=== PATIENT | female | born 1945 | race Caucasian/White ===

== ENCOUNTER → 2018-01-11 16:07 | Outpatient (CLI) | payer MEDICARE, SELFPAY | PROVIDERS: Family Provider Family Medicine; PCP Family Medicine; Visit Provider Family Medicine | DX: N30.00 Acute cystitis without hematuria (principal) | CPT/HCPCS: 87077; 87086; 87088; 87186 ==

== ENCOUNTER → 2018-11-18 07:57 | Outpatient (CLI) | payer MEDICARE, SELFPAY ==
--- NOTE | 2018-11-18 08:00 | BI_ITS ---
MAMMOGRAPHY - BILATERAL SCREENING REASON FOR EXAM: Female, 73 years old. Routine annual screening examination. PERTINENT HISTORY: Non-contributory. Remote left stereotactic breast biopsy. TECHNIQUE: Digital bilateral breast tyler (3D mammographic acquisition) in the CC and MLO projections. 2-D mediolateral oblique (MLO) and craniocaudad (CC) views of both breasts were obtained. CAD: Full Field Digital Mammography with Computer Added Detection was performed. COMPARISON: Comparison is made with prior study dated March 28, 2017 and January 28, 2016. FINDINGS: Breast Composition: The breasts are heterogeneously dense, which may obscure small masses. There are no dominant masses or suspicious calcifications. A tissue clip marker is once again seen in the axillary region of the left breast. No other significant abnormalities are identified. There has been no significant change since the prior study. BI/SCREENING MAMM (CAD), BILAT IMPRESSION: Stable bilateral screening mammogram. Yearly follow-up mammogram recommended. (A) ASSESSMENT CATEGORY: BIRADS Category 2: Benign. A letter regarding these results will be sent to the patient by the facility within 30 days. Approximately 10% of breast cancers are not detected by mammography. A normal mammogram should not delay biopsy of a clinically suspicious abnormality. [id number] Electronically Signed: Wilton Razo MD at 11:20 EST , Service support ,
== END ==
PROVIDERS: Family Provider Family Medicine; PCP Family Medicine; Referring Provider Family Medicine; Visit Provider Family Medicine
DX: Z12.31 Encounter for screening mammogram for malignant neoplasm of breast (principal)
CPT/HCPCS: 77063; 77067

== ENCOUNTER → 2018-11-22 11:43 | Outpatient (CLI) | payer MEDICARE, SELFPAY ==
[2018-11-22 16:01] LABS: Absolute Lymphocyte Count 1.06 X10^3/ul (0.83-4.51); Absolute Neutrophil Count 3.9 X10^3/uL (2.0-7.7); Basophil# 0.03 X10^3/uL; Basophil% 0.5 % (0-1); Eosinophil# 0.08 X10^3/uL; Eosinophils% 1.4 % (0-5); Hematocrit 35.8 % (37-47); Hemoglobin 11.4 g/dl (12.0-15.0); Lymphocyte # 1.06 X10^3/ul (4.0); Lymphocyte % 19.1 % (19-41); Mean Corp Hgb Conc 31.8 g/gl (32-36); Mean Corpuscular Hgb 28.2 pg (27.0-32.0); Mean Corpuscular Volume 88.6 fL (81-99); Mean Platelet Vol. 10.9 fl (6.2-12.0); Monocyte# 0.47 X10^3/uL; Monocyte% 8.5 % (0-10); Neutrophil # 3.89 X10^3/uL (2.7-7.7); Neutrophil % 70.1 % (47-70); Platelet Count 243 K/mm3 (150-450); RBC Distribution Width CV 13.7 % (11.6-14.6); RBC Distribution Width SD 44.6 fl (35.1-43.9); Red Blood Count 4.04 M/mm3 (4.2-5.4); White Blood Count 5.6 K/mm3 (4.4-11.0)
[2018-11-22 16:03] LABS: POSITIVE COUNT NO; POSITIVE DIFFERENTIAL NO; POSITIVE MORPHOLOGY NO
[2018-11-22 16:08] LABS: Anion Gap 7 (5-15); BUN 15 mg/dL (7-18); BUN/Creat Ratio 17.4 RATIO (10-20); Calcium,Total 8.9 mg/dL (8.5-10.1); Chloride 99 mmol/L (98-107); Creatinine, Serum 0.86 mg/dL (0.55-1.02); EST Glomerular Filtration Rate 68 mL/min (>60); Est Glom Filt Rate - Afr Amer 83 mL/min (>60); Glucose 98 mg/dL (74-106); Potassium 4.2 mmol/L (3.5-5.1); Sodium Level 135 mmol/L (136-145); T4 Free Direct 0.99 ng/dL (0.76-1.46); Thyroid Stim Hormone (TSH) 1.09 uIU/mL (0.358-3.74); Vitamin D,25 Hydroxy 22.9 ng/mL (29.95-100.01)
== END ==
PROVIDERS: Family Provider Family Medicine; PCP Family Medicine; Visit Provider Family Medicine
DX: E55.9 Vitamin D deficiency, unspecified (principal); I10 Essential (primary) hypertension; E78.5 Hyperlipidemia, unspecified
CPT/HCPCS: 36415; 80048; 82306; 84439; 84443; 85025

== ENCOUNTER → 2018-12-12 12:34 | Outpatient (CLI) | payer MEDICARE, SELFPAY ==
[2018-12-17 11:25] LABS: HPV Reflexed? NOT INDICATED
== END ==
PROVIDERS: Family Medicine; Family Provider Family Medicine; PCP Family Medicine; Visit Provider Family Medicine
DX: Z12.4 Encounter for screening for malignant neoplasm of cervix (principal)
CPT/HCPCS: 88175; G0145

== ENCOUNTER 2019-10-08 14:07 | Emergency (ER) | payer MEDICARE, SELFPAY ==
[2019-10-08 14:09] VITALS: BP 166/82; PULSE 82; RESP 16; TEMP 36.2; O2SAT 99; BMI 28.8
--- NOTE | 2019-10-08 14:16 | ED.DCSUM_ITS ---
History of Present Illness Chief Complaint: Lower Extremity Injury Informant: Patient Onset: Today Context: Sudden Onset Timing: Continuous Quality: Pain Location: Left ankle Current Severity: Mild Maximum Severity: Moderate Worsened by: Palpation and weightbearing Relieved by: Rest Associated Symptoms: Difficulty ambulating Narrative: Patient is a 74-year-old woman who was walking to the garden. She lost her balance. She rolled her left ankle. She presents because of pain and swelling her left ankle. She was concerned she may have injured her knee as well. She denies hitting her head. She has no other complaints. Prior similar symptoms: No Recent Illness/Hospitalization: No Past Medical History - Allergies and Home Meds Allergies/Adverse Reactions: Allergies No Known Allergies Allergy (Verified 10/08/19 14:08) Primary Care Physician: Phil Garcia MD [Primary Care Provider] - Prior records reviewed: No - Available Surgical History: noncontributory Lives: Spouse/ Significant Other Smoking Status: Never smoker Drugs: None Review of Systems Musculoskeletal: Reports: Swelling, Extremity Pain. Denies: Myalgias, Arthralgias, Neck pain, Back pain Skin: Denies: Rash, Wounds Neurological: Denies: Weakness, Parasthesia, Numbness Hematologic: Denies: Easy bruising, Easy bleeding Physical Exam Vital Signs/Narrative: Vital Signs Temp Pulse Resp BP Pulse Ox 10/08/19 14:09 97.2 F L 82 16 166/82 H 99 Inital Vital Signs reviewed: Yes General: Well nourished, Well developed, Obese, No Acute Distress Head: Normocephalic, Atraumatic Eyes: Perrl, EOMI. Negative for: Pale conjunctiva, Scleral icterus ENT: Moist mucous membranes, No rhinorrhea Cardiovascular: Regular rate, Regular rhythm, No murmurs Respiratory: No distress Extremities: No edema, Tenderness - There is pain to palpation over the distal 3 to 4 cm of the left fibula there is no laxity with drawer testing. There is no pain palpation of the base of the fifth metatarsal. DP pulses palpable.The knee does not appear swollen. The patella is not ballotable. There is no effusion. There is no joint line tenderness. There is no lacks with varus valgus stress testing. Roslyn's test is negative. She has full flexion extension.. Negative for: Nontender Skin: Normal color, No rash Neurological: Alert, Oriented x3, Cranial nerves II-XII grossly intact, Normal Strength, Normal Sensation. Negative for: Normal Gait Diagnostic/Tx/Re-eval Chest X-Ray - ED: Read by ED Physician, - - 3 view x-ray of the left ankle was obtained and interpreted by me as positive for a comminuted distal left fibular fracture at the joint line. There is no widening of the mortise. There is no other abnormality noted. 10/08/19 14:16 Ankle min 3 Views [RAD] Stat - Medical Decision Making Based on history, physical and audible role x-ray of the left ankle was obtained. Differential sprain versus fracture ED Disposition - Plan for ED Patient: Disposition: Home or Assisted Living Diagnosis: Closed traumatic nondisplaced fracture of distal end of left fibula Instructions: ANKLE FRACTURE (Distal Fibula), closed Prescriptions: Hydrocodone Bitart/Apap 5-325 [[place] 5MG-325MG] 1 tab PO Q6H PRN PRN 3 Days #10 tab PRN Reason: Pain Prescription Printed Referrals: Phil Garcia MD [Primary Care Provider] - Vivian Woods DO [STAFF PHYSICIAN] - 5-7 Days
--- NOTE | 2019-10-08 14:25 | RAD_ITS ---
STUDY: X-RAY - LEFT ANKLE REASON FOR EXAM: Female, 74 years old. FALL, PAIN TECHNIQUE: 3 view(s) of the ankle. COMPARISON: None. FINDINGS: Obliquely oriented fracture of the distal fibula with approximately 2 mm of displacement extends to the level of the tibiotalar joint. Normal tibiotalar articulation and ankle mortise. Normal visualized talus and calcaneus. The visualized subtalar, talonavicular, calcaneocuboid and tarsal articulations are normal. Ossific density adjacent to the anterior plantar calcaneus likely represents an accessory ossicle. There is lateral and anterior soft tissue swelling. RAD/Ankle min 3 Views IMPRESSION: Smith B distal fibular fracture. Electronically Signed: Biju Padilla MD ([place]) at 14:44 EST , Service support ,
[2019-10-08 15:15] VITALS: RESP 16
== END 2019-10-08 15:16 | disposition home or self-care (01) ==
LOC: ED 14:49
PROVIDERS: Emergency Provider Emergency Medicine; Family Provider Family Medicine; PCP Family Medicine
DX: S82.832A Other fracture of upper and lower end of left fibula, initial encounter for closed fracture (principal); X50.1XXA Overexertion from prolonged static or awkward postures, initial encounter; Y93.01 Activity, walking, marching and hiking; Y92.096 Garden or yard of other non-institutional residence as the place of occurrence of the external cause; Y99.9 Unspecified external cause status; E66.9 Obesity, unspecified
CPT/HCPCS: 73610; 99282

== ENCOUNTER → 2019-10-14 08:34 | Outpatient (CLI) | payer MEDICARE, SELFPAY ==
[2019-10-14 08:16] VITALS: BMI 29.2
--- NOTE | 2019-10-14 08:34 | RAD_ITS ---
STUDY: X-RAY - LEFT ANKLE REASON FOR EXAM: Fracture follow-up. TECHNIQUE: 3 view(s) of the ankle. COMPARISON: Radiographs 10/08/2019. FINDINGS: There is no interval change of the minimally displaced distal fibular fracture. There is a small anterior osteophyte of the distal tibia without joint space narrowing of the tibiotalar articulation. There are small posterior and plantar calcaneal enthesophytes. The visualized subtalar, talonavicular, calcaneocuboid and tarsal articulations are normal. There is soft tissue swelling overlying the lateral malleolus. RAD/Ankle min 3 Views IMPRESSION: No interval change of distal fibular fracture. Electronically Signed: Guillermo Fraser MD at 10:54 EST Tel , Service support ,
--- NOTE | 2019-10-14 08:34 | RAD_ITS ---
STUDY: X-RAY - LEFT KNEE REASON FOR EXAM: Chronic pain. TECHNIQUE: 4 view(s) of the knee. COMPARISON: None. FINDINGS: Normal visualized distal femur. Normal visualized proximal tibia and fibula. Normal proximal tibiofibular articulation. There are marginal osteophytes and moderately severe joint space narrowing of the medial femorotibial compartment. There are marginal osteophytes without joint space narrowing of the lateral femorotibial compartment. There are marginal osteophytes with moderate joint space narrowing of the patellofemoral articulation. There is a joint effusion. RAD/Knee 4 or More Views IMPRESSION: Arthrosis of the medial femorotibial and patellofemoral compartments. Joint effusion. Electronically Signed: Guillermo Fraser MD at 10:36 EST Tel , Service support ,
== END ==
PROVIDERS: Family Provider Family Medicine; PCP Family Medicine; Referring Provider Orthopaedic Surgery; Visit Provider Orthopaedic Surgery
DX: M25.562 Pain in left knee (principal); M25.572 Pain in left ankle and joints of left foot
CPT/HCPCS: 73564; 73610

== ENCOUNTER 2019-10-17 07:46 | Day surgery (SDC) | payer MEDICARE, SELFPAY ==
[2019-10-14 08:16] VITALS: BMI 29.2
--- NOTE | 2019-10-14 11:59 | HP_ITS ---
I have re-examined the patient. There are no clinical changes since date of exam. Intake Vital Signs 10/14/19 Height 5 ft 3 in 10/14/19 Weight: 165 lb Intake Visit Reasons: LEFT ANKLE Is patient in pain?: Yes Pain scale (1-10): 1 Allergies No Known Allergies Allergy (Verified 10/14/19 08:26) Medications Losartan Potassium [Cozaar] 25 mg PO DAILY 10/08/19 [History Confirmed 10/14/19] aspirin 81 mg tablet,delayed release 81 mg PO DAILY 10/14/19 [History Confirmed 10/14/19] [facility] Medical History (Updated 10/14/19 @ 08:26 by Nita Monae) Hypertension (Chronic) Surgical History (Updated 10/14/19 @ 08:27 by Nita Monae) H/O: (Acute) Social History (Updated 10/14/19 @ 11:59 by Vivian Woods DO) Smoking Status: Never smoker HPI LEFT ANKLE: Surgical H&P: Yes Details: Parts of this documentation were recorded by a scribe, this documentation accurately reflects the service provided and the decisions made by me, Vivian Woods DO 10/14/19 0816. GUILLERMINA HANSEN is a 74 year old F here today for a left fibula fracture. Patient notes that she was taking compost to the garden on 10/08/19 and fell down the slope. Patient notes that she went to the ED due to no strength. She states that she continues to have swelling. Patient has been elevating and icing her ankle. She notes that she ambulates with the boot at all times. She is partial weightbearing with a walker. Patient notes that her pain is decreasing. She takes tylenol or aleve for pain. Patient notes that she has knee pain at times. Denies numbness, tingling or other associated symptoms. ROS Musc Reports joint pain, Reports joint swelling Skin/Breast Reports system reviewed and no additional complaints, except as docu Neuro Yes system reviewed and no additional complaints, except as docu Ortho Exam Left Foot/Ankle Date of injury: 10/08/19 Skin: Yes Ecchymosis and Soft Tissue Swelling Contralateral Normal: Yes Exam: Yes Ecchymosis, Soft tissue swelling, TTP FX site and TTP Lateral Malleolus Dorsiflexion 0-20: 0 degrees Plantar Flexion 0-40: 0 degrees ROM: Yes pain with ROM Sensation: Deep Peroneal Nerve: I, Superficial Peroneal Nerve: I, Tibial Nerve: I, Sural Nerve: I, Saphenous Nerve: I No rales rhonchi wheezing, no abdominal pain, no audible bruits Assessment & Plan Problems 1. Closed displaced fracture of lateral malleolus of left fibula, initial encounter S82.62XA Plan Personally reviewed the patient's medical history, medications, surgeries and recent exams if available. X-rays were reviewed. There is no obvious fracture, dislocation, or lucency noted. 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 Reviewed the joint force and how that can be disrupted with fractures but she has maintained good alignment and spacing in the ankle joint. Her treatment options are do nothing, casting for better support and the changing when the swelling decreases and nwb or surgery for ORIF, reviewed the post op restrictions and the ability to walk on it sooner with ORIF vs cast. Answered patient's questions regarding plate removal if needed. Reviewed the pre-operative plans with the patient. Risks and benefits of the procedure were fully explained, including but not limited to infection, neurovascular injury, continued pain, arthritis, stiffness, need for further surgery, re-injury, DVT, PE, general risks of anesthesia, and loss of limb or life. The patient understands all the risks and does wish to proceed with written consent. Follow up post op or sooner if pain, swelling, numbness or associated symptoms, or concerns develop. All questions answered. Patient in agreement of plan. Orders Orders: Ankle min 3 Views Today M25.572 Knee 4 or More Views Today M25.562 Coding Level of Care Code Off vis,new,level 3 Diagnoses Closed displaced fracture of lateral malleolus of left fibula, initial encounter S82.62XA ??Encounter type: initial encounter ??Fracture alignment: displaced ??Fracture type: closed 10/14/19 1159 <Electronically signed by Vivian clifton DO> Date _ Vivian Woods DO
[2019-10-17] VITALS (8 sets, daily range): BP systolic 120–159; BP diastolic 66–86; PULSE 85–99; RESP 16; TEMP 36.2–36.9; O2SAT 92–98
--- NOTE | 2019-10-17 08:01 | EKG12_ITS ---
Test Reason : PREOP Blood Pressure : / mmHG Vent. Rate : 093 BPM Atrial Rate : 093 BPM P-R Int : 150 ms QRS Dur : 076 ms QT Int : 356 ms P-R-T Axes : 039 047 006 degrees QTc Int : 442 ms Normal sinus rhythm Normal ECG Confirmed by NELSON HANSEN, RADHA ([id number]), telegraph editor ELENA CARRIZALES ([id number]) on 10/21/2019 10:42:50 AM Referred By: Vivian Woods Confirmed By:RADHA DAMON MD
[2019-10-17] MEDS: Lactated Ringers 1,000 ML 100 ML IV (08:42)
[2019-10-17] MEDS: Cefazolin 2 GM in 0.9% Normal Saline 100 ML IV (09:39)
--- NOTE | 2019-10-17 09:45 | RAD_ITS ---
STUDY: X-RAY - LEFT ANKLE REASON FOR EXAM: Left ankle fracture ORIF. TECHNIQUE: 7 intraoperative images of the ankle. COMPARISON: Radiographs 10/14/2019. FINDINGS: There is an orthopedic plate and screws transfixing a distal fibular fracture in anatomic alignment and position. There is a syndesmotic screw. 39.2 seconds of fluoroscopy time was used. Electronically Signed: Guillermo Fraser MD at 13:03 EST Tel , Service support , RAD/Ankle min 3 Views
[2019-10-17] MEDS: Mupirocin Ointment 22gm Tube 1 APPLIC (11:00)
--- NOTE | 2019-10-17 11:18 | DCINST_ITS ---
Discharge Diet: No Restrictions - elevate toes above nose, nwb left leg, wiggle toes, call with increased pain, numbness, or if other issues arise Discharge Activity: May Not Drive May shower in (days): 1 Ice area for (Minutes): 20 - Every hour while awake. Weight Bearing Status: Weight bearing as tolerated Keep extremity elevated above heart level: Operative Extremity Call your doctor if your incision/area has: Continuous Slow Oozing, Sudden Increased Bleeding, Increased Pain/ Swelling, Increased Redness, Foul Smelling Discharge Call your doctor if you observe: Fever of 101 or Higher, Coldness, Increased Pain, Numbness or Tingling, Change in Color, Calf discomfort Allergies/Adverse Reactions: Allergies No Known Allergies Allergy (Verified 10/17/19 08:30) Medications to take at Discharge Losartan Potassium [Cozaar] 25 mg PO DAILY 10/08/19 aspirin 81 mg tablet,delayed release 81 mg PO DAILY 10/14/19 Cholecalciferol (VIT D3) [Vitamin D] 1,000 unit PO DAILY 10/16/19 Hydrocodone Bitart/Apap 5-325 [[place] 5MG-325MG] 1 - 2 tablet PO Q6H PRN PRN 5 Days #40 tablet 10/17/19 The following prescriptions were given: Hydrocodone Bitart/Apap 5-325 [[place] 5MG-325MG] 1 - 2 tablet PO Q6H PRN PRN 5 Days #40 tablet PRN Reason: Pain Transmission Status: Sent to [facility] Primary Care Physician: Phil Garcia MD [Primary Care Provider] - Test Results: Test results from this visit will be discussed in further detail at your follow- up appointment, if applicable. Please Follow Up With: Vivian Woods, - [phone]
--- NOTE | 2019-10-17 11:19 | PCM.OPRPT ---
Report of Operation Date of Procedure: 10/17/19 Pre-Operative Diagnosis: Displaced left lateral malleolus fracture Post-Operative Diagnosis: same Surgery/Procedure Performed:: orif left lateral malleolus, syndesmotic stress view and syndesmotic screw fixation Type of Anesthesia:: Spinal Anesthesiologist: Kian Tucker Estimated Blood Loss (mL): 15cc Fluids Replaced: 1500cc Description of Procedure: Preop note Patient is 74-year-old female who fell at home unable to bear weight on her left leg was sent to the emergency room where x-rays confirmed a lateral malleolus fracture. Patient seen in our office displaced lateral malleolus fracture did discuss risks benefits and alternatives to surgery conservative treatment options were discussed patient elected to not proceed with wearing a cast for 6weeks she thought would be most difficult to be nonweightbearing as well due to her age and inability to use crutches and she would like to start weightbearing as soon as possible. Risk benefits alternatives were discussed with patient. Risk including but not limited to blood loss, blood clot, infection, neurovascular, failure procedure, loss of life and loss of limb. Patient is aware like proceed with ORIF of her left ankle repair as indicated. Operative note Patient seen and examined preoperative holding area. Left leg was marked. Patient brought the operating placed supine on the operating table. Signed, anesthesia, antibiotics were preparation center coordinator. The left leg was prepped and draped in usual sterile fashion with a tourniquet around her upper thigh. Patient received a preoperative spinal block however when we attempted to start the case she was feeling sharp pain so we did converted to a general. The left leg was then prepped and draped usual sterile fashion with tourniquet around her upper thigh. We marked out our incision placement using fluoroscopy at the level of the fracture site and extending about 2 and half centimeters proximally and distally. The left arm was then elevated exsanguinated and tourniquet was raised to a pressure of 250 torr. We then used a 15 blade to cut the skin and dissected down after timeout was performed dissected down with tenotomies the level of the fracture site. We then debride the fracture site with dental pick. We then irrigated the fracture with copious amounts of sterile saline reduced it with a lobster claw. We found that the best way to maintain reduction was with a posterior antiglide plate. We did pre-bend it and then placed it posteriorly and then placed a lobster claw around it was well to maintain reduction of her fracture site. We placed our initial screw just proximal and posterior anterior trajectory just proximal to the fracture site. We had good reduction of this at this time we then failed and are more distal screw hole and then across the fracture site is a lax and intact like technique. We then placed another proximal antiglide plate the screw the most proximally using again another 3 5 screw and then our last screw was a locking screw into the distal hole of the distal of the plate. We then stressed the ankle and she did gap at the tib-fib clear space so it at that point we placed a 3.5 syndesmosis screw with the knee with the ankle in dorsiflexion and inversion. Please note that we did drill with a 2 5 and measured it to be a 48 mm 3 5 screw. Irrigated the incision with copious nonsterile saline closed periosteum over the plate with 2-0 Vicryl subcuticular layer was closed with 2-0 Vicryl and skin with 4-0 nylon sterile dressing applied a posterior splint in neutral was placed on and neutral dorsiflexion was placed on left lower extremity. Tourniquet was applied for total working time 48 minutes. Patient tolerated procedure well no complication transferred recovery room in stable condition. Postoperative note Nonweightbearing Hospital pharmacy has prescriptions Leave dressing intact follow-up in 2 weeks x-rays Elevate ice wiggle toes as tolerated Call with concerns This note was generated with [employer] dictation software. It may contain incorrect words, spelling, and punctuation that were not noted in checking the note before signing.
== END 2019-10-17 14:07 | disposition home or self-care (01) ==
LOC: SDC 07:47 → AC 07:48
PROVIDERS: Family Provider Family Medicine; PCP Family Medicine; Referring Provider Orthopaedic Surgery; Visit Provider Orthopaedic Surgery
PROC: (CPT 27792; principal; 2019-10-17 09:10)
DX: S82.62XA Displaced fracture of lateral malleolus of left fibula, initial encounter for closed fracture (principal); I10 Essential (primary) hypertension; K21.9 Gastro-esophageal reflux disease without esophagitis; D64.9 Anemia, unspecified; Z79.82 Long term (current) use of aspirin; Z79.899 Other long term (current) drug therapy; W10.2XXA Fall (on)(from) incline, initial encounter; Y93.01 Activity, walking, marching and hiking; Y92.007 Garden or yard of unspecified non-institutional (private) residence as the place of occurrence of the external cause; Y99.8 Other external cause status
CPT/HCPCS: 01480; 27792; 73610; 76000; 93005; C1713; J7120; J2405

== ENCOUNTER → 2019-10-30 14:17 | Outpatient (CLI) | payer MEDICARE, SELFPAY ==
--- NOTE | 2019-10-30 14:18 | RAD_ITS ---
STUDY: X-RAY - LEFT ANKLE REASON FOR EXAM: Female, 74 years old. recheck TECHNIQUE: 3 view(s) of the ankle. COMPARISON: 14 October 2019 FINDINGS: Distal fibular plating with cortical screw anchoring the fibula to the distal tibia showing normal alignment with no evidence of hardware failure. Normal medial and lateral malleoli. Normal tibiotalar articulation and ankle mortise. Normal visualized talus and calcaneus. The visualized subtalar, talonavicular, calcaneocuboid and tarsal articulations are normal. The soft tissue structures are unremarkable. RAD/Ankle min 3 Views IMPRESSION: Distal fibular and ankle hardware as above showing no evidence of hardware failure. There is been interval healing of the comminuted distal fibular fracture. Electronically Signed: Sedrick Maurice DO at 9:03 EST , Service support ,
== END ==
PROVIDERS: PCP Family Medicine; Referring Provider Orthopaedic Surgery; Visit Provider Orthopaedic Surgery
DX: S82.62XA Displaced fracture of lateral malleolus of left fibula, initial encounter for closed fracture (principal)
CPT/HCPCS: 73610

== ENCOUNTER → 2019-11-27 14:18 | Outpatient (CLI) | payer MEDICARE, SELFPAY ==
--- NOTE | 2019-11-27 14:20 | RAD_ITS ---
STUDY: X-RAY - LEFT ANKLE REASON FOR EXAM: Postoperative follow-up. TECHNIQUE: 3 view(s) of the ankle. COMPARISON: Radiographs 10/30/2019. FINDINGS: There is intact orthopedic hardware transfixing a distal fibular fracture in anatomical alignment and position. Normal tibiotalar articulation and ankle mortise. Normal visualized talus and calcaneus. The visualized subtalar, talonavicular, calcaneocuboid and tarsal articulations are normal. The soft tissue structures are unremarkable. RAD/Ankle min 3 Views IMPRESSION: No significant change of ORIF of distal fibular fracture. Electronically Signed: Guillermo Fraser MD at 15:31 EST Tel , Service support ,
== END ==
PROVIDERS: PCP Family Medicine; Referring Provider Orthopaedic Surgery; Visit Provider Orthopaedic Surgery
DX: M25.572 Pain in left ankle and joints of left foot (principal)
CPT/HCPCS: 73610

== ENCOUNTER → 2020-06-18 14:24 | Outpatient (CLI) | payer MEDICARE, SELFPAY ==
[2020-06-18 16:53] LABS: Absolute Neutrophil Count 3.2 X10^3/uL (2.0-7.7); Basophil# 0.02 X10^3/uL; Basophil% 0.4 % (0-1); Eosinophil# 0.07 X10^3/uL; Eosinophils% 1.4 % (0-5); Hematocrit 35.7 % (37-47); Hemoglobin 11.6 g/dL (12.0-15.0); Lymphocyte % 29.5 % (19-41); Mean Corp Hgb Conc 32.5 g/dL (32-36); Mean Corpuscular Hgb 29.1 pg (27.0-32.0); Mean Corpuscular Volume 89.5 fL (81-99); Monocyte# 0.32 X10^3/uL; Monocyte% 6.3 % (0-10); NRBC Flagged by Analyzer 0 % (0-5); Neutrophil # 3.15 X10^3/uL (2.7-7.7); Platelet Count 253 K/mm3 (150-450); RBC Distribution Width CV 13.2 % (11.6-14.6); RBC Distribution Width SD 43.2 fl (35.1-43.9); Red Blood Count 3.99 M/mm3 (4.2-5.4); White Blood Count 5.1 K/mm3 (4.4-11.0)
[2020-06-18 17:35] LABS: Vitamin D,25 Hydroxy 38.3 ng/mL
[2020-06-18 17:42] LABS: ALB/GLOB Ratio 1.2 RATIO (0.9-2.4); AST(SGOT) 23 U/L (15-37); Alanine Aminotransfer ALT/SGPT 31 U/L (13-56); Albumin, Serum 4.2 g/dL (3.2-5.0); Alkaline Phosphatase 80 U/L (45-117); Anion Gap 5 (5-15); BUN 15 mg/dL (7-18); BUN/Creat Ratio 18.9 RATIO (10-20); Calcium,Total 9.3 mg/dL (8.5-10.1); Chloride 101 mmol/L (98-107); Cholesterol 208 mg/dL (200); Creatinine, Serum 0.79 mg/dL (0.55-1.02); EST Glomerular Filtration Rate 75 mL/min (>60); Est Glom Filt Rate - Afr Amer 91 mL/min (>60); Globulin 3.6 g/dL (2.2-4.2); Glucose 95 mg/dL (74-106); High Density Lipoprotein 49 mg/dL; Protein, Total 7.8 g/dL (6.4-8.2); Sodium Level 138 mmol/L (136-145); Triglycerides 168 mg/dL; Very Low Density Lipoprotein 34 mg/dL (5-40)
== END ==
PROVIDERS: PCP Family Medicine; Visit Provider Family Medicine
DX: R73.01 Impaired fasting glucose (principal); E55.9 Vitamin D deficiency, unspecified; E78.5 Hyperlipidemia, unspecified; I10 Essential (primary) hypertension
CPT/HCPCS: 36415; 80053; 80061; 82306; 83036; 84443; 85025

== ENCOUNTER → 2020-11-02 13:13 | Outpatient (CLI) | payer MEDICARE, SELFPAY ==
--- NOTE | 2020-11-02 13:15 | BI_ITS ---
MAMMOGRAPHY - BILATERAL SCREENING REASON FOR EXAM: Female, 75 years old. Routine annual screening examination. PERTINENT HISTORY: Non-contributory. Remote left stereotactic breast biopsy. TECHNIQUE: Digital bilateral breast antoine (3D mammographic acquisition) in the CC and MLO projections. 2-D mediolateral oblique (MLO) and craniocaudad (CC) views of both breasts were obtained. CAD: Full Field Digital Mammography with Computer Added Detection was performed. COMPARISON: Comparison is made with prior study dated 11/18/2018 and 03/28/2017. FINDINGS: Breast Composition: The breasts are heterogeneously dense, which may obscure small masses. There are no dominant masses or suspicious calcifications. A tissue clip marker is once again seen in the axillary region of the left breast No other significant abnormalities are identified. There has been no significant change since the prior study. BI/SCRN MAMM (CAD)W/ANTOINE BILAT IMPRESSION: Stable bilateral screening mammogram. Yearly follow-up mammogram recommended. (A) ASSESSMENT CATEGORY: BIRADS Category 2: Benign. A letter regarding these results will be sent to the patient by the facility within 30 days. Approximately 10% of breast cancers are not detected by mammography. A normal mammogram should not delay biopsy of a clinically suspicious abnormality. [id number] Electronically Signed: Wilton Razo MD at 14:21 EST , Service support ,
== END ==
PROVIDERS: PCP Family Medicine; Referring Provider Family Medicine; Visit Provider Family Medicine
DX: Z12.31 Encounter for screening mammogram for malignant neoplasm of breast (principal)
CPT/HCPCS: 77063; 77067

== ENCOUNTER → 2020-12-02 08:19 | Outpatient (CLI) | payer MEDICARE, SELFPAY ==
[2020-12-02 10:19] LABS: Absolute Lymphocyte Count 1.26 X10^3/uL (0.83-4.51); Absolute Neutrophil Count 3.2 X10^3/uL (2.0-7.7); Basophil# 0.04 X10^3/uL; Basophil% 0.8 % (0-1); Eosinophil# 0.08 X10^3/uL; Eosinophils% 1.6 % (0-5); Hematocrit 37.6 % (37-47); Hemoglobin 12.1 g/dL (12.0-15.0); Lymphocyte # 1.26 X10^3/ul (4.0); Lymphocyte % 25.6 % (19-41); Mean Corp Hgb Conc 32.2 g/dL (32-36); Mean Corpuscular Hgb 28.7 pg (27.0-32.0); Mean Corpuscular Volume 89.3 fL (81-99); Mean Platelet Vol. 10.7 fl (6.2-12.0); Monocyte# 0.35 X10^3/uL; Monocyte% 7.1 % (0-10); NRBC Flagged by Analyzer 0 % (0-5); Neutrophil # 3.19 X10^3/uL (2.7-7.7); Neutrophil % 64.7 % (47-70); Platelet Count 257 K/mm3 (150-450); RBC Distribution Width CV 12.9 % (11.6-14.6); RBC Distribution Width SD 42.4 fl (35.1-43.9); Red Blood Count 4.21 M/mm3 (4.2-5.4); White Blood Count 4.9 K/mm3 (4.4-11.0)
[2020-12-02 10:39] LABS: Hemoglobin A1c 5.9 % (3.8-5.6)
[2020-12-02 10:46] LABS: ALB/GLOB Ratio 1.1 RATIO (0.9-2.4); AST(SGOT) 18 U/L (15-37); Alanine Aminotransfer ALT/SGPT 32 U/L (13-56); Alkaline Phosphatase 82 U/L (45-117); Anion Gap 6 (5-15); BUN 19 mg/dL (7-18); BUN/Creat Ratio 21.3 RATIO (10-20); Calcium,Total 9.1 mg/dL (8.5-10.1); Chloride 101 mmol/L (98-107); Cholesterol 199 mg/dL (200); Creatinine, Serum 0.89 mg/dL (0.55-1.02); EST Glomerular Filtration Rate 66 mL/min (>60); Est Glom Filt Rate - Afr Amer 79 mL/min (>60); Globulin 3.7 g/dL (2.2-4.2); Glucose 115 mg/dL (74-106); High Density Lipoprotein 47 mg/dL; Protein, Total 7.7 g/dL (6.4-8.2); Sodium Level 137 mmol/L (136-145); Thyroid Stim Hormone (TSH) 1.54 uIU/mL (0.358-3.74); Triglycerides 185 mg/dL; Very Low Density Lipoprotein 37 mg/dL (5-40)
== END ==
PROVIDERS: PCP Family Medicine; Referring Provider Family Medicine; Visit Provider Family Medicine
DX: R73.01 Impaired fasting glucose (principal); E55.9 Vitamin D deficiency, unspecified; E78.5 Hyperlipidemia, unspecified
CPT/HCPCS: 36415; 80053; 80061; 82306; 83036; 84443; 85025

== ENCOUNTER → 2022-03-03 | Outpatient (CLI) | payer MEDICARE, SELFPAY ==
[2022-03-03 12:35] LABS: Absolute Lymphocyte Count 1.16 X10^3/uL (0.83-4.51); Absolute Neutrophil Count 2.6 X10^3/uL (2.0-7.7); Basophil# 0.03 X10^3/uL; Basophil% 0.7 % (0-1); Eosinophil# 0.07 X10^3/uL; Eosinophils% 1.7 % (0-5); Hematocrit 34.6 % (37-47); Hemoglobin 11.4 g/dL (12.0-15.0); Lymphocyte # 1.16 X10^3/ul (0.83-4.51); Lymphocyte % 27.4 % (19-41); Mean Corp Hgb Conc 32.9 g/dL (32-36); Mean Corpuscular Hgb 29.3 pg (27.0-32.0); Mean Corpuscular Volume 88.9 fL (81-99); Mean Platelet Vol. 10.7 fl (6.2-12.0); Monocyte# 0.34 X10^3/uL; NRBC Flagged by Analyzer 0 % (0-5); Neutrophil # 2.61 X10^3/uL (2.7-7.7); Neutrophil % 61.7 % (47-70); Platelet Count 221 K/mm3 (150-450); RBC Distribution Width CV 13.7 % (11.6-14.6); RBC Distribution Width SD 44.5 fl (35.1-43.9); Red Blood Count 3.89 M/mm3 (4.2-5.4); White Blood Count 4.2 K/mm3 (4.4-11.0)
[2022-03-03 12:40] LABS: ALB/GLOB Ratio 1.2 RATIO (0.9-2.4); AST(SGOT) 29 U/L (15-37); Alanine Aminotransfer ALT/SGPT 41 U/L (13-56); Albumin, Serum 4.1 g/dL (3.2-5.0); Alkaline Phosphatase 70 U/L (45-117); Anion Gap 5 (5-15); BUN 22 mg/dL (7-18); BUN/Creat Ratio 23.8 RATIO (10-20); Calcium,Total 9.3 mg/dL (8.5-10.1); Chloride 102 mmol/L (98-107); Cholesterol 196 mg/dL (200); Creatinine, Serum 0.93 mg/dL (0.55-1.02); EST Glomerular Filtration Rate 62 mL/min (>60); Est Glom Filt Rate - Afr Amer 76 mL/min (>60); Globulin 3.5 g/dL (2.2-4.2); Glucose 115 mg/dL (74-106); High Density Lipoprotein 46 mg/dL; Potassium 4.5 mmol/L (3.5-5.1); Protein, Total 7.6 g/dL (6.4-8.2); Sodium Level 137 mmol/L (136-145); Triglycerides 138 mg/dL; Very Low Density Lipoprotein 28 mg/dL (5-40)
[2022-03-03 12:52] LABS: Hemoglobin A1c 6.1 % (3.8-5.6)
[2022-03-04 09:15] LABS: Vitamin D,25 Hydroxy 44.5 ng/mL
== END | disposition home or self-care (01) ==
LOC: MTLAB 09:45
PROVIDERS: PCP Family Medicine; Referring Provider Family Medicine; Visit Provider Family Medicine
DX: E78.5 Hyperlipidemia, unspecified (principal); I10 Essential (primary) hypertension; R73.01 Impaired fasting glucose; E55.9 Vitamin D deficiency, unspecified
CPT/HCPCS: 36415; 80053; 80061; 82306; 83036; 85025

== ENCOUNTER 2022-11-01 16:13 | Emergency (ER) | payer MEDICARE, SELFPAY ==
[2022-11-01 16:16] VITALS: BP 161/81; PULSE 94; RESP 18; TEMP 36.2; O2SAT 98; BMI 28.5
--- NOTE | 2022-11-01 16:42 | EDS_ITS ---
HPI History of Present Illness HPI Narrative: Patient presents with pain in her left hip that began today. Patient states she fell while playing pickle ball today. Patient landed on her buttocks. Patient complains of pain in her left hip when she tried to ambulate after the fall. Patient describes her pain as sharp. Patient states it is only there whenever she tries to move her hip or bear weight. Patient states it is better with rest. Patient denies any head injury or loss of consciousness. Patient denies any other injuries. Chief Complaint: Lower Extremity Injury Informant: patient Occured/Mechanism Mechanism/Context: Yes fall Onset/Context/Timing Onset: Today Context: Sudden Onset Timing: Continuous Quality of Pain: Sharp Location: Left hip Worsened by: Weightbearing and ambulation Relieved by: Rest Associated Symptoms Associated Symptoms: Negative for Parasthesia, Weakness or Loss of Funtion PFSH PFS Medical History Hypertension Home Medications losartan 25 mg tablet 25 mg PO DAILY 10/08/19 [History Last Taken 10/08/19] aspirin 81 mg tablet,delayed release 81 mg PO DAILY 10/14/19 [History Last Taken Unknown] cholecalciferol (vitamin D3) 25 mcg (1,000 unit) tablet 1,000 unit PO DAILY 10/16/19 [History Last Taken Unknown] hydrocodone-acetaminophen 5-325mg 5mg-325mg 1 tab PO Q6H PRN PRN Pain 3 days #10 TABLETS 11/01/22 [Rx Last Taken Unknown] Allergy/AdvReac Type Severity Reaction Status Date / Time No Known Allergies Allergy Verified 11/01/22 16:16 Surgical History H/O: Social History Smoking Status: Never smoker ROS ROS ED Constitutional Constitutional ED: Denies chills or fever(s) Eyes Eyes: Denies blurry vision or change in vision ENT ENT ED: Denies rhinorrhea or sore throat Cardiovascular Cardiovascular: Denies chest pain or palpitations Respiratory/Chest Respiratory/Chest: Denies cough or dyspnea Gastrointestinal Gastrointestinal: Denies nausea or vomiting Genitourinary Genitourinary ED: Denies dysuria or hematuria Musculoskeletal Musculoskeletal: Denies back pain or neck pain Integumentary Denies abscess or rash Neurologic Neurologic: Denies headache(s) or weakness Allergic/Immunologic Allergic/Immunologic ED: Denies mouth swelling or urticaria EXAM Physical Exam Const Vital Signs: 11/01/22 16:16 11/01/22 17:41 Temperature 97.1 F L Temperature Source Temporal Pulse Rate 94 85 Respiratory Rate 18 16 Blood Pressure 161/81 H 146/82 H Blood Pressure Mean 107 103 Pulse Ox 98 98 Oxygen Delivery Method Room Air Room Air Positive well nourished and well developed General Appearance ED: well developed and NAD HEENT Reports moist mucous membranes Neck full ROM GI non-tender and non-distended Palpation: soft Extremity Extremity Narrative: There is mild varus over the left hip and pelvic area. There is no bony crepitance or step-off. There is no obvious deformity noted. There is good range of motion with internal and external rotation of the left lower extremity. Range of motion was slightly limited in flexion of the left hip secondary to pain. Strength is 5/5 bilaterally in the lower extremities. There are no sensory deficits noted. Pedal and posterior tibial pulses are equal bilaterally. General Extremety ED: Yes weight-bearing difficulty General Extremity: weight-bearing difficulty Neuro oriented x3, CN's II-XII intact bilaterally, moves all extremities and no sensor y deficits noted Sensorium / Orientation: alert Motor Exam: strength 5/5 throughout Psych mental status grossly normal MDM MDM MDM Narrative Medical decision making narrative: Patient states she took an Aleve prior to coming to the emergency department and does not want any analgesics at this time. We will obtain x-rays of the left hip to assess for fracture of the hip and pelvis. Radiography Diagnostic Testing: Clinical Impression(s) from Imaging Studies Hip/Pelvis X-Ray 11/01/22 17:06 IMPRESSION: Suspected nondisplaced fracture of the medial acetabulum. Further evaluation with CT of the pelvis is recommended. Electronically Signed: Rohini Sen MD at 17:44 EST Reading Location ID and State: [id number] / Tel , Service support , Pelvis CT 11/01/22 17:49 IMPRESSION: Acute, nondisplaced fractures of the left superior and inferior ischial rami. Intact acetabulum. Electronically Signed: Rohini Sen MD at 19:10 EST Reading Location ID and State: [id number] / Tel , Service support , X-rays of the left hip were obtained. There are 4 views. On my independent interpretation, there is a questionable nondisplaced fracture of the superior and inferior pubic ramus. There is no fracture of the femoral neck. There is no dislocation. Radiologist also interpreted the x-rays and felt that the fracture goes into the acetabulum and recommends CT scan of the pelvis. This will be obtained. CT scan of the pelvis was obtained. On my independent interpretation, there are nondisplaced fractures of the superior and inferior pubic rami. There is no fracture into the acetabulum. Radiologist also interpreted the CT scan and agrees. Treatment and Re-Evaluation Narrative: Patient was advised of her findings. Patient states she will be able to obtain a walker and a wheelchair to help get around at home. Patient was given a prescription for [place]. Patient was instructed use ice to the area. Patient was given a referral for orthopedics. Patient was instructed to follow-up in 5 to 7 days. Patient understood and was agreeable with the plan. All questions were answered. Discharge Plan Triage Chief Complaint: Lower Extremity Injury ED Provider: Mian Alfaro Dx/Rx/DC Orders Clinical Impression: Fracture of left superior pubic ramus, Closed fracture of left inferior pubic ramus, Fall Instructions: ED Pelvic Fracture Prescriptions: New hydrocodone-acetaminophen [hydrocodone-acetaminophen] 5-325 mg tablet 1 tab PO Q6H PRN PRN (Reason: Pain) 3 Days Qty: 10 0RF No Action aspirin 81 mg tablet,delayed release (DR/EC) 81 mg PO DAILY losartan 25 MG tablet 25 mg PO DAILY cholecalciferol (vitamin D3) 1,000 UNIT tablet 1,000 unit PO DAILY Primary Care Provider: Claribel Rapp Referrals: Claribel Rapp MD [Primary Care Provider] - 5-7 Days Compa Rinaldi MD [Med Staff - Active Staff] - 1-2 Weeks Disposition Disposition: Home, Self Care
--- NOTE | 2022-11-01 17:06 | RAD_ITS ---
INDICATION: Injury/Pain EXAMINATION/TECHNIQUE: X-RAY - LEFT XR Hip Unilateral with Pelvis when performed; 2-3 Views 4 VIEWS COMPARISON: None. FINDINGS: Question nondisplaced fracture or stress injury of the medial acetabulum/superior ischial ramus seen on AP and frog leg views. No destructive bone changes. Joint spaces are well-maintained. Normal alignment. Soft tissues are unremarkable. No radiopaque foreign body or soft tissue gas. RAD/HIP, UNI W/ Pelvis 2-3 Views IMPRESSION: Suspected nondisplaced fracture of the medial acetabulum. Further evaluation with CT of the pelvis is recommended. Electronically Signed: Rohini Sen MD at 17:44 EST Reading Location ID and State: [id number] / Tel , Service support ,
[2022-11-01 17:41] VITALS: BP 146/82; PULSE 85; RESP 16; O2SAT 98
--- NOTE | 2022-11-01 17:49 | CT_ITS ---
INDICATION: Questionable pelvic fracture EXAMINATION: CT PELVIS BONE - CT Pelvis W/O Contrast Injection TECHNIQUE: Routine noncontrast bone CT protocol was performed of the pelvis. 2-D reformats were performed by the technologist. A radiation dose optimization technique was used for this scan. IV Contrast dosage and agent: None. COMPARISON: X-ray 11/01/2022. FINDINGS: Acute, nondisplaced fracture of the left inferior ischial ramus. Acute, nondisplaced fracture of the left superior ischial ramus corresponding to plain film findings, best demonstrated on coronal imaging. There is no extension to the hip joint space. Degenerative changes of the lower lumbar spine. Joint spaces are well-maintained. Normal alignment. Transitional lumbosacral vertebral body. Soft tissues are unremarkable. No radiopaque foreign body or soft tissue gas. CT/Pelvis without IV Contrast IMPRESSION: Acute, nondisplaced fractures of the left superior and inferior ischial rami. Intact acetabulum. Electronically Signed: Rohini Sen MD at 19:10 EST Reading Location ID and State: [id number] / Tel , Service support ,
[2022-11-01 19:59] VITALS: BP 136/85; PULSE 80; RESP 15; O2SAT 97
== END 2022-11-01 20:00 | disposition home or self-care (01) ==
PROVIDERS: Emergency Provider Emergency Medicine; PCP Family Medicine; Visit Provider Emergency Medicine
DX: S32.512A Fracture of superior rim of left pubis, initial encounter for closed fracture (principal); S32.592A Other specified fracture of left pubis, initial encounter for closed fracture; W19.XXXA Unspecified fall, initial encounter
CPT/HCPCS: 72192; 73502; 99282

== ENCOUNTER → 2023-02-08 | Outpatient (CLI) | payer MEDICARE, SELFPAY ==
[2023-02-08 16:58] LABS: Absolute Lymphocyte Count 1.55 X10^3/uL (0.83-4.51); Absolute Neutrophil Count 3.2 X10^3/uL (2.0-7.7); Basophil# 0.04 X10^3/uL; Basophil% 0.7 % (0-1); Eosinophil# 0.08 X10^3/uL; Eosinophils% 1.5 % (0-5); Hematocrit 36.6 % (37-47); Hemoglobin 11.5 g/dL (12.0-15.0); Lymphocyte # 1.55 X10^3/ul (0.83-4.51); Lymphocyte % 28.9 % (19-41); Mean Corp Hgb Conc 31.4 g/dL (32-36); Mean Corpuscular Hgb 28.3 pg (27.0-32.0); Mean Corpuscular Volume 90.1 fL (81-99); Mean Platelet Vol. 10.8 fl (6.2-12.0); Monocyte# 0.52 X10^3/uL; Monocyte% 9.7 % (0-10); NRBC Flagged by Analyzer 0 % (0-5); Neutrophil # 3.16 X10^3/uL (2.7-7.7); Neutrophil % 58.8 % (47-70); Platelet Count 260 K/mm3 (150-450); RBC Distribution Width CV 13.4 % (11.6-14.6); RBC Distribution Width SD 44.4 fl (35.1-43.9); Red Blood Count 4.06 M/mm3 (4.2-5.4); White Blood Count 5.4 K/mm3 (4.4-11.0)
[2023-02-08 17:50] LABS: ALB/GLOB Ratio 1.1 RATIO (0.9-2.4); AST(SGOT) 21 U/L (15-37); Alanine Aminotransfer ALT/SGPT 36 U/L (13-56); Alkaline Phosphatase 100 U/L (45-117); Anion Gap 9 (5-15); BUN 22 mg/dL (7-18); BUN/Creat Ratio 19.3 RATIO (10-20); Calcium,Total 9.4 mg/dL (8.5-10.1); Chloride 99 mmol/L (98-107); Cholesterol 202 mg/dL (200); Creatinine, Serum 1.14 mg/dL (0.55-1.02); EST Glomerular Filtration Rate 49 mL/min (>60); Est Glom Filt Rate - Afr Amer 59 mL/min (>60); Globulin 3.8 g/dL (2.2-4.2); Glucose 103 mg/dL (74-106); High Density Lipoprotein 45 mg/dL; Potassium 4.6 mmol/L (3.5-5.1); Protein, Total 7.8 g/dL (6.4-8.2); Sodium Level 137 mmol/L (136-145); Triglycerides 139 mg/dL; Very Low Density Lipoprotein 28 mg/dL (5-40)
[2023-02-08 18:41] LABS: Hemoglobin A1c 5.9 % (3.8-5.6)
[2023-02-08 18:54] LABS: Vitamin D,25 Hydroxy 48.9 ng/mL
== END | disposition home or self-care (01) ==
LOC: BIMLAB 15:29
PROVIDERS: PCP Internal Medicine; Referring Provider Internal Medicine; Visit Provider Internal Medicine
DX: I10 Essential (primary) hypertension (principal); E55.9 Vitamin D deficiency, unspecified; R73.03 Prediabetes
CPT/HCPCS: 36415; 80053; 80061; 82306; 83036; 85025

== ENCOUNTER → 2023-03-06 | Outpatient (CLI) | payer MEDICARE, SELFPAY ==
--- NOTE | 2023-03-06 13:21 | BI_ITS ---
MAMMOGRAPHY - BILATERAL SCREENING REASON FOR EXAM: Female, 78 years old. Routine annual screening examination. PERTINENT HISTORY: Aunt with breast cancer. Remote left stereotactic breast biopsy TECHNIQUE: Digital bilateral breast antoine (3D mammographic acquisition) in the CC and MLO projections. 2-D mediolateral oblique (MLO) and craniocaudad (CC) views of both breasts were obtained. CAD: Full Field Digital Mammography with Computer Added Detection was performed. COMPARISON: Comparison is made with prior study dated May 02, 2021 August 18, 2019. FINDINGS: Breast Composition: The breasts are heterogeneously dense, which may obscure small masses. There are no dominant masses or suspicious calcifications. A tissue clip marker is once again seen in the axillary region of the left breast No other significant abnormalities are identified. There has been no significant change since the prior study. BI/SCRN MAMM (CAD)W/ANTOINE BILAT IMPRESSION: Stable bilateral screening mammogram. Yearly follow-up mammogram recommended. (A) ASSESSMENT CATEGORY: BIRADS Category 2: Benign. A letter regarding these results will be sent to the patient by the facility within 30 days. Approximately 10% of breast cancers are not detected by mammography. A normal mammogram should not delay biopsy of a clinically suspicious abnormality. [id number] Electronically Signed: Wilton Razo MD at 14:38 EDT ,
--- NOTE | 2023-03-06 13:29 | BD_ITS ---
STUDY: DUAL ENERGY X-RAY ABSORPTIOMETRY / DXA REASON FOR EXAM: Female, 78 years old. Post - Menopausal TECHNIQUE: Bone Mineral Density (BMD) measurements of lumbar spine and bilateral hips were obtained. COMPARISON: Comparison is made with prior study dated March 28, 2017. FINDINGS: Lumbar Spine (L1-L4): g/cm2 (0.963) / T-score (-0.8) / Z-score (1.8) Findings are suggestive of normal bone density with a low fracture risk. Left Femur Total: g/cm2 (0.780) / T-score (-1.3) / Z-score (0.6) Left Femoral Neck: g/cm2 (0.744) / T-score (-0.9) / Z-score (1.3) Right Femur Total: g/cm2 (0.823) / T-score (-1.0) / Z-score (1.0) Right Femoral Neck: g/cm2 (0.756) / T-score (-0.8) / Z-score (1.4) The T-Scores on the most recent prior examination were: Lumbar Spine (L1-L4): There has been worsening of bone density since the previous examination. Left Femur Total: which represents a worsening of 6.6%. Right Femur Total: which represents a worsening of 2.9%. BD/Dexa Bone Density Study IMPRESSION: The patient is considered osteopenic as outlined below according to World Cameron Organization (WHO) criteria with a low fracture risk. There has been worsening of bone density since the previous examination. Reference Information: The T-score is the number of standard deviations above or below the standard which is normal for young adults at their peak bone mineral density. The World Health Organization (WHO) interprets the T-scores as follows: Above -1 Normal bone density Between -1 and -2.5 Osteopenia Equal to / or below -2.5 Osteoporosis As a practical clinical guideline, osteopenia may be graded as follows: Mild -1 through -1.5 Moderate -1.6 through -2.0 Severe -2.1 through -2.4 The Z-score is the number of standard deviations above or below age-matched controls. A Z-score of less than -1.5 would be considered abnormal. References: 1. NIH Osteoporosis and Related Bone Diseases www osteo.org 2. International Society for Clinical Densitometry www iscd.org 3. National Osteoporosis Foundation www nof.org Electronically Signed: Wilton Razo MD at 9:07 EDT ,
== END | disposition home or self-care (01) ==
LOC: OPBD 13:21
PROVIDERS: PCP Internal Medicine; Referring Provider Internal Medicine; Visit Provider Internal Medicine
DX: Z12.31 Encounter for screening mammogram for malignant neoplasm of breast (principal); Z78.0 Asymptomatic menopausal state
CPT/HCPCS: 77063; 77067; 77080

== ENCOUNTER → 2023-07-04 | Outpatient (CLI) | payer MEDICARE, SELFPAY ==
[2023-07-04 12:17] LABS: Absolute Neutrophil Count 2.9 X10^3/uL (2.0-7.7); Basophil# 0.03 X10^3/uL; Basophil% 0.7 % (0-1); Eosinophil# 0.06 X10^3/uL; Eosinophils% 1.3 % (0-5); Hematocrit 37.6 % (37-47); Hemoglobin 12.1 g/dL (12.0-15.0); Lymphocyte % 28.3 % (19-41); Mean Corp Hgb Conc 32.2 g/dL (32-36); Mean Corpuscular Hgb 29.1 pg (27.0-32.0); Mean Corpuscular Volume 90.4 fL (81-99); Monocyte# 0.32 X10^3/uL; NRBC Flagged by Analyzer 0 % (0-5); Neutrophil # 2.87 X10^3/uL (2.7-7.7); Neutrophil % 62.3 % (47-70); Platelet Count 265 K/mm3 (150-450); RBC Distribution Width CV 13.2 % (11.6-14.6); Red Blood Count 4.16 M/mm3 (4.2-5.4); White Blood Count 4.6 K/mm3 (4.4-11.0)
[2023-07-04 12:41] LABS: Anion Gap 4 (5-15); BUN 17 mg/dL (7-18); BUN/Creat Ratio 17.3 RATIO (10-20); Calcium,Total 9.6 mg/dL (8.5-10.1); Chloride 100 mmol/L (98-107); Creatinine, Serum 0.98 mg/dL (0.55-1.02); EST Glomerular Filtration Rate 58 mL/min (>60); Est Glom Filt Rate - Afr Amer 70 mL/min (>60); Glucose 117 mg/dL (74-106); Potassium 4.2 mmol/L (3.5-5.1); Sodium Level 135 mmol/L (136-145)
== END | disposition home or self-care (01) ==
LOC: BIMLAB 10:47
PROVIDERS: PCP Internal Medicine; Referring Provider Internal Medicine; Visit Provider Internal Medicine
DX: R73.03 Prediabetes (principal); I10 Essential (primary) hypertension
CPT/HCPCS: 36415; 80048; 85025

== ENCOUNTER → 2023-11-05 | Outpatient (CLI) | payer MEDICARE, SELFPAY ==
--- OUTSIDE RECORDS SUMMARY | 2023-11-05 09:18 | XMS RPT_ITS | CCD ---
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 0 08/08/2022 Discontinued (Discontinued by Patient) Problems Active Problems Problem Classification Problem Date Documented Da te Episodic/Chronic Cataract (2 sources) Nuclear senile cataract; Translations: [Age-related nuclear cataract, unspecified eye] Onset: 08-26-2014 08-26-2014 Chronic Glaucoma (2 sources) Preglaucoma, unspecified, bilateral; Translations: [Preglaucoma, unspecified] Onset: 07-09-2018 07-09-2018 Chronic Other eye disorders (2 sources) Bilateral vitreous floaters; Translations: [Other vitreous opacities, bilateral] Onset: 07-09-2018 07-09-2018 Chronic Other non-traumatic joint disorders (1 source) Pain in left knee; Translations: [Pain in joint, lower leg] 10-21-2021 Episodic Past or Other Problems Problem Classification Problem Date Documented Date Episodic/Chronic Blindness and vision defects (4 sources) Regular astigmatism; Translations: [Regular astigmatism, unspecified eye] Onset: 08-26-2014 08-26-2014 Episodic Inflammation; infection of eye (except that caused by tuberculosis or sexually transmitteddisease) (2 sources) Allergic conjunctivitis of bilateral eyes; Translations: [Acute atopic conjunctivitis, bilateral] Onset: 04-15-2019 04-15-2019 Episodic Other eye disorders (2 sources) Disorder of lacrimal gland; Translations: [Dry eye syndrome of bilateral lacrimal glands] Onset: 04-15-2019 04-15-2019 Episodic Results Test Name Value Interpretation Reference Range Facil ity Encounters Encounter Date Encounter Type Care Provider Facility Start: 10-24-2023 End: 10-24-2023 ambulatory FELI JEREZALEXANDER Facility:[facility] Start: 04-20-2022 Telephone encounter Gabe holcomb MD Work Phone: Orthopaedics Procedures Date Procedure Procedure Detail Performing Clinician Start: 10-21-2021 Radiologic exam knee complete 4/more views Yaya Wagner PA-C Work Phone: Plan of Treatment Date Care Activity Detail Author Start: 06-08-2023 Covid-19 Vaccine () Covid-19 Vaccine () [facility] Start: 06-08-2023 Influenza vaccination Influenza Vacc ine (#1) [facility] Start: 10-08-2022 Advance Directive Discussion Advance Directive Discussion [facility] Start: 10-08-2022 Depression Assessment Depression Ass essment [facility] Start: 06-08-2022 Influenza vaccination INFLUENZA (#1) [facility] Start: 12-02-2021 COVID-19 VACCINE (4 - Booster for Pfizer series) COVID-19 VACCINE (4 - Booster for Pfizer series) [facility] Start: 10-08-2021 ADVANCE DIRECTIVE DISCUSSION ADVANCE DIRECTIVE DISCUSSION [facility] Start: 2010 BONE DENSITY BONE DENSITY [facility] Start: 2010 Bone Density Screening Bone Density Screening [facility] Start: 2010 Pneumococcal Vaccine : 65+ (1 - PCV) Pneumococcal Vaccine: 65+ (1 - PCV) [facility] Start: 2010 PNEUMOCOCCAL: 65+ (1 - PCV) PNEUMOCOCCAL: 65+ (1 - PCV) [facility] Start: 2005 RSV Vaccine (1 - 1-d ose 60+ series) RSV Vaccine (1 - 1-dose 60+ series) [facility] Start: 1995 SHINGRIX VACCINE (1 of 2) SHINGRIX V ACCINE (1 of 2) [facility] Start: 1990 DIABETES SCREEN DIABETES SCREEN [facility] Start: 1990 Diabetes Screening Diabetes Screenin g [facility] Start: 01-09-1964 Urine microalbumin profile [facility] Start: 1963 HEPATITIS C SCREENING HEPATITIS C SC LESTER [facility] Start: 1957 Adult depression screening assessment DEPRESSION SCREENING [facility] Immunizations Immunization Date Immunization Notes Care Provider Fa cility 08-07-2022 influenza virus vacc ine, unspecified formulation Xr Rej Work Phone: [facility] Payers Date Payer Category Payer Medicare AETNA MEDICARE A ETNA MEDICARE PPO [id number] 2021-Present [phone] [address] [place] [address] PPO [id number] 2021 Medicare AETNA MEDICARE A ETNA MEDICARE PPO [id number] 2021-Present [phone] [address] [place] [address] PPO [id number] 2021 Medicare [id number] Social History Date Type Detail Facility Start: 08-26-2014 Tobacco smoking stat us GAIS Never smoked tobacco [facility] Work Phone: Start: 10-21-2021 Alcohol intake Current drinke r of alcohol (finding) [facility] Start: 10-21-2021 [facility] Start: 07-27-2020 History SDOH Alcohol Comment occasional [facility] Start: 1945 Sex Assigned At Not on file [facility] Start: 08-26-2014 Tobacco use and exposure Smokeless tobacco non-user [facility] Start: 10-21-2021 Tobacco use panel [facility] Start: 09-21-2021 End: 10-21-2021 Exposure to SARS-CoV-2 (event) Not sure [facility] Progress note 10-24-2023 Note Date & Type Note Facility 10-24-2023 Note HNO ID: [id number] Author: KIMMY GIRALDO II, OD Service: ? Author Type: CURRICULUM DEVELOPMENT MANAGER Type: Progress Notes Filed: 10/24/2023 08:47 Note Text: Assessment and Plan H25.813 Combined form of senile cataract of both eyes (primary encounter diagnosis) Comment: Slow progression both eyes. Myopic shift right eye. Monitor. 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 Stable nerve appearance today. Repeat in one year. No treatment indicated at this time. Discussed need for continued close observation to minimize chance of future vision loss. 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 Dislikes current PAL design. I have confirmed and edited as necessary the relevant ophthalmic history, ROS, and the neuro exam findings as obtained by others. I have seen and examined Peggy Godinez. I have discussed the case and the management of this patient's care with the Resident/Fellow, if applicable. I also have reviewed and agree with the assessment and plan as stated above and agree with all of its relevant components. Kimmy Giraldo II, PREETHI [facility] Note 04-20-2022 Telephone Encounter - Lisseth Mcguire RN - 04/20/2022 11:26 AM EDT Note Date & Type Note Facility 04-20-2022 Miscellaneous Notes ORTHO CARE COORDINATION QUICK NOTE Patient has been identified by name and date of : Yes Spoke with patient today regarding her need to postpone her LTKA surgery scheduled for 05/12. Patient reports that she has a tooth abscess that needs to be addressed. She declined rescheduling surgery at this time as she reports her knee isnt painful and she may opt to hold off on surgery for another year Advised patient that she can call the office when shes ready for surgery and it may include an OV to update documentation but we would double check dates when she calls to reschedule Patient appreciative of call. Lisseth Mcguire RN documented in this encounter [facility] History of Present illness Narrative 10-21-2021 Megan Bailey RT(R) - 10/21/2021 10:15 AM EST Note Date & Type Note Facility 10-21-2021 History of Presen t illness Narrative Radiology Service Progress Note PATIENT NAME: Peggy Godinez DATE OF SERVICE: October 21, 2021 TIME: 9:30 AM PATIENT IDENTITY VERIFICATION COMPLETED USING TWO (2) IDENTIFIERS: Name and Date of confirmed by patient verbally. FALL SCREENING: Has the patient had 2 falls in the last year or 1 fall with injury or currently using an Ambulatory Assistive Device (Walker, Cane, Wheelchair, Crutches, etc.)? No PATIENT GENDER DATA: Female. status: : No status: NO. PATIENT RELEVANT IMPLANT DATA REVIEWED: Not Applicable RADIOLOGY DEPARTMENT: General X-ray: Exam(s) Completed: Lower Extremity X-Ray(s): Knee, AP / Lat / Tunne / Merchant Left and Wt. Bearing PERIPHERAL IV DATA: Not applicable SIGNED BY: RT Marianela(R) October 21, 2021 9:30 AM documented in this encounter [facility] Evaluation note Note Date & Type Note Facility documented in this encounter [facility] Reason for referral (narrative) Diagnostic Procedure Only (Routine) - Closed Note Date & Type Note Facility Referral ID Status Reason Start Date Expiration Date V isits Requested Visits Authorized [id number] Closed Auto-Generate d Referral 10/17/2021 11/16/2022 1 1 [facility] Summary Purpose Family History No Family History Records FoundNo Family History Records Found Advance Directives No Advanced Directives Records FoundNo Advanced Directives Records Found Additional Source Comments INFORMATION SOURCE (unrecogn ized section and content) DATE CREATED AUTHOR AUTHOR'S ORGANIZ ATION 10/25/2023 [facility] Source Comments (unrecognize d section and content) In the event this informatio n is protected by the Federal Confidentiality of Alcohol and Drug Abuse Patient Records regulations: The Federal rules restrict any use of the information to criminally investigate or prosecute any alcohol or drug abuse patient.[facility] the event this information is protected by the Federal Confidentiality of Alcohol and Drug Abuse Patient Records regulations: The Federal rules restrict any use of the information to criminally investigate or prosecute any alcohol or drug abuse patient.[facility] Reason for Visit (unrecogniz ed section and content) Reason Comments Radio Gen RMP Specialty Diagnoses / Procedures Referred By Contac t Referred To Contact XR IMAGING Diagnoses Left knee pain, unspecified chronicity Procedures XR KNEE GENERAL 4V AP BOTH/PA BOTH/LAT/MERC LEFT KNEE AP-WGT/LAT/MERCHANT Yaya Wagner, [facility] [address] [place] [address] Xr Imaging [place] [address] Referral ID Status Reason Start Date Expiration Date V isits Requested Visits Authorized [id number] Closed Auto-Generate d Referral 10/17/2021 11/16/2022 1 1 Care Teams (unrecognized sec tion and content) Mine Equipment Design Engineer Relationship Specialty Start Date End Date Phli Garcia MD [address] [place] [address] PCP - General Family Medicine 07/09/18 08/07/22 FOR RECORDS PERTAINING TO PATIENTS WHO ARE OR HAVE BEEN ENROLLED IN A CHEMICAL DEPENDENCY/SUBSTANCEABUSE PROGRAM, SOME INFORMATION MAY BE OMITTED. This clinical summary was aggregated from multiple sources. Caution should be exercised in using it in the provision of clinical care. This summary normalizes information from multiple sources, and as a consequence, information in this document may materially change the coding, format and clinical context of patient data. In addition, data may be omitted in some cases. CLINICAL DECISIONS SHOULD BE BASED ON THE PRIMARY CLINICAL RECORDS. [facility] [employer] [facility]. provides no warranty or guarantee of the accuracy or completeness of information in this document.
[2023-11-05 13:42] LABS: Anion Gap 4 (5-15); BUN 22 mg/dL (7-18); BUN/Creat Ratio 25.2 RATIO (10-20); Calcium,Total 9.6 mg/dL (8.5-10.1); Chloride 102 mmol/L (98-107); Creatinine, Serum 0.87 mg/dL (0.55-1.02); EST Glomerular Filtration Rate 66 mL/min (>60); Est Glom Filt Rate - Afr Amer 80 mL/min (>60); Glucose 111 mg/dL (74-106); Sodium Level 136 mmol/L (136-145)
[2023-11-05 14:44] LABS: Hemoglobin A1c 5.9 % (3.8-5.6)
== END | disposition home or self-care (01) ==
LOC: BIMLAB 08:49
PROVIDERS: PCP Internal Medicine; Referring Provider Internal Medicine; Visit Provider Internal Medicine
DX: R73.03 Prediabetes (principal); I10 Essential (primary) hypertension
CPT/HCPCS: 36415; 80048; 83036

== ENCOUNTER → 2024-05-26 | Outpatient (CLI) | payer MEDICARE, SELFPAY ==
[2024-05-26 16:45] LABS: Absolute Lymphocyte Count 1.35 X10^3/uL (0.83-4.51); Absolute Neutrophil Count 2.4 X10^3/uL (2.0-7.7); Basophil# 0.03 X10^3/uL; Basophil% 0.7 % (0-1); Eosinophil# 0.07 X10^3/uL; Eosinophils% 1.7 % (0-5); Hematocrit 34.5 % (37-47); Hemoglobin 11.1 g/dL (12.0-15.0); Lymphocyte # 1.35 X10^3/ul (0.83-4.51); Lymphocyte % 32.3 % (19-41); Mean Corp Hgb Conc 32.2 g/dL (32-36); Mean Corpuscular Hgb 28.7 pg (27.0-32.0); Mean Corpuscular Volume 89.1 fL (81-99); Mean Platelet Vol. 10.9 fl (6.2-12.0); Monocyte# 0.35 X10^3/uL; Monocyte% 8.4 % (0-10); NRBC Flagged by Analyzer 0 % (0-5); Neutrophil # 2.37 X10^3/uL (2.7-7.7); Neutrophil % 56.7 % (47-70); Platelet Count 242 K/mm3 (150-450); RBC Distribution Width CV 13.2 % (11.6-14.6); RBC Distribution Width SD 43.8 fl (35.1-43.9); Red Blood Count 3.87 M/mm3 (4.2-5.4); White Blood Count 4.2 K/mm3 (4.4-11.0)
[2024-05-26 17:23] LABS: AST(SGOT) 18 U/L (15-37); Alanine Aminotransfer ALT/SGPT 25 U/L (13-56); Albumin, Serum 3.7 g/dL (3.2-5.0); Alkaline Phosphatase 86 U/L (45-117); Anion Gap 6 (5-15); BUN 18 mg/dL (7-18); BUN/Creat Ratio 22.2 RATIO (10-20); Calcium,Total 9.2 mg/dL (8.5-10.1); Chloride 101 mmol/L (98-107); Cholesterol 185 mg/dL (200); Creatinine, Serum 0.81 mg/dL (0.55-1.02); EST Glomerular Filtration Rate 72 mL/min (>60); Est Glom Filt Rate - Afr Amer 88 mL/min (>60); Globulin 3.8 g/dL (2.2-4.2); Glucose 110 mg/dL (74-106); High Density Lipoprotein 40 mg/dL; Protein, Total 7.5 g/dL (6.4-8.2); Sodium Level 136 mmol/L (136-145); T4 Free Direct 0.84 ng/dL (0.76-1.46); Thyroid Stim Hormone (TSH) 0.987 uIU/mL (0.358-3.740); Triglycerides 148 mg/dL; Very Low Density Lipoprotein 30 mg/dL (5-40)
== END | disposition home or self-care (01) ==
LOC: BIMLAB 14:45
PROVIDERS: PCP Internal Medicine; Referring Provider Internal Medicine; Visit Provider Internal Medicine
DX: I10 Essential (primary) hypertension (principal); R73.03 Prediabetes
CPT/HCPCS: 36415; 80053; 80061; 83036; 84439; 84443; 85025

== ENCOUNTER → 2024-08-14 | Outpatient (CLI) | payer MEDICARE, SELFPAY | END | disposition home or self-care (01) | LOC: OPBI 07:53 | PROVIDERS: PCP Internal Medicine; Referring Provider Internal Medicine; Visit Provider Internal Medicine | DX: Z12.31 Encounter for screening mammogram for malignant neoplasm of breast (principal) | CPT/HCPCS: 77063; 77067 ==

== ENCOUNTER → 2025-01-12 | Outpatient (CLI) | payer MEDICARE, SELFPAY ==
[2025-01-12 15:56] LABS: Absolute Lymphocyte Count 1.36 X10^3/uL (0.83-4.51); Absolute Neutrophil Count 2.6 X10^3/uL (2.0-7.7); Basophil# 0.03 X10^3/uL; Basophil% 0.7 % (0-1); Eosinophil# 0.05 X10^3/uL; Eosinophils% 1.1 % (0-5); Hematocrit 36.2 % (37-47); Hemoglobin 11.8 g/dL (12.0-15.0); Lymphocyte # 1.36 X10^3/ul (0.83-4.51); Lymphocyte % 31.1 % (19-41); Mean Corp Hgb Conc 32.6 g/dL (32-36); Mean Corpuscular Hgb 29.1 pg (27.0-32.0); Mean Corpuscular Volume 89.2 fL (81-99); Mean Platelet Vol. 10.6 fl (6.2-12.0); Monocyte# 0.28 X10^3/uL; Monocyte% 6.4 % (0-10); NRBC Flagged by Analyzer 0 % (0-5); Neutrophil # 2.64 X10^3/uL (2.7-7.7); Neutrophil % 60.5 % (47-70); Platelet Count 244 K/mm3 (150-450); RBC Distribution Width SD 42.8 fl (35.1-43.9); Red Blood Count 4.06 M/mm3 (4.2-5.4); White Blood Count 4.4 K/mm3 (4.4-11.0)
[2025-01-12 17:48] LABS: Anion Gap 10 (5-15); BUN 15 mg/dL (4-19); BUN/Creat Ratio 18.5 RATIO (10-20); Calcium,Total 9.6 mg/dL (7.6-11.0); Chloride 98 mmol/L (98-108); Creatinine, Serum 0.83 mg/dL (0.70-1.20); EST Glomerular Filtration Rate 71 (>60); Glucose 114 mg/dL (70-99); Iron 72 ug/dL (50-170); Iron Binding Capacity,Total 320 ug/dL (250-450); Iron Binding Capacity,Unsat 248 ug/dL (228-428); Potassium 4.1 mmol/L (3.3-5.1); Sodium Level 136 mmol/L (133-145)
[2025-01-12 17:54] LABS: Ferritin 158 ng/mL (22-378); Vitamin D,25 Hydroxy 47.9 ng/mL (30-100)
== END | disposition home or self-care (01) ==
LOC: BIMLAB 13:48
PROVIDERS: PCP Internal Medicine; Referring Provider Internal Medicine; Visit Provider Internal Medicine
DX: M85.80 Other specified disorders of bone density and structure, unspecified site (principal); D64.9 Anemia, unspecified; I10 Essential (primary) hypertension
CPT/HCPCS: 36415; 80048; 82306; 82728; 83540; 83550; 85025

== ENCOUNTER → 2025-04-15 | Outpatient (CLI) | payer MEDICARE, SELFPAY ==
--- NOTE | 2025-04-15 16:30 | BD_ITS ---
PROCEDURE: DEXA BONE DENSITY STUDY 04/15/2025 REASON FOR EXAM: POST MENOPAUSAL F, age 80 y/o . Postmenopausal. TECHNIQUE: DEXA BONE DENSITY STUDY COMPARISON: Prior study dated March 06, 2023. FINDINGS: BMD and T-SCORES Lumbar spine: 0.944 g/cm2, T-score -0.9 Levels: L1 through L4 Change from prior: Loss of 2%. Left femoral neck: 0.704 g/cm2, T-score -1.3 Femoral neck comparison data not recommended for monitoring change. Left total hip: 0.755 g/cm2, T-score -1.5 Change from prior: Loss of 3.2%. Right femoral neck: 0.748 g/cm2, T-score -0.9 Femoral neck comparison data not recommended for monitoring change. Right total hip: 0.831 g/cm2, T-score -0.9 Change from prior: Improvement of 1%. The World Health Organization has defined the following categories based on bone density: Normal bone density: T-score equal to or greater than -1.0 Osteopenia: T-score between -1.0 and -2.5 Osteoporosis: T-score equal to or less than -2.5 The patient does meet the pharmacological treatment recommendations for prevention of osteoporosis. BD/Dexa Bone Density Study IMPRESSION: OSTEOPENIA. Recommend follow-up as clinically warranted. Reading Location: [place] [id number]
== END | disposition home or self-care (01) ==
LOC: OPBD 16:21
PROVIDERS: PCP Internal Medicine; Referring Provider Internal Medicine; Visit Provider Internal Medicine
DX: Z78.0 Asymptomatic menopausal state (principal)
CPT/HCPCS: 77080

== ENCOUNTER → 2025-08-28 | Outpatient (CLI) | payer MEDICARE, SELFPAY ==
--- OUTSIDE RECORDS SUMMARY | 2025-08-28 13:50 | XMS RPT_ITS | CCD ---
Author Organization [facility] Care Team Providers Care Mechanical Drafter Name Role Phone Radha HANSEN, Phil Borrero Primary Care Provider Dr. Claribel Rapp Referring Provider Dr. Uriel Thorpe Primary Care Provider [phone] Dr. Uriel Thorpe Attending Provider [phone] Dr. Uriel Thorpe Primary Care Provider [phone]) Dr. Uriel Thorpe Attending Provider [phone] Dr. Uriel Thorpe Referring Provider [phone] Phil Garcia MD Primary Care Provider Dr. Uriel Thorpe Primary Care Provider 1(33 0) Dr. Uriel Thorpe Attending Provider [phone] Dr. Uriel Thorpe Referring Provider [phone] Dr. Uriel Thorpe MD Primary Care Provider Dr. Uriel Thorpe MD Attending Provider [phone] [phone]) Dr. Uriel Thorpe MD Referring Provider 1(33 0) URIEL THORPE Primary Care Unavailable KIMMY GARZON II Referring KIMMY Mclaughlin II Attending UnavailUriel Pearce MD Primary Care Provider [phone] Uriel Thorpe Primary Care Unavailable Uriel Thorpe Attending Unavailable Oleghe, Efewongbe Referring Unavailable Oleghe, Efewongbe Primary Care Unavailable Oleghe, Efewongbe Attending Unavailable Oleghe, Efewongbe Referring Unavailable Oleghe, Efewongbe Primary Care Unavailable Oleghe, Efewongbe Attending Unavailable Oleghe, Efewongbe Referring Unavailable Oleghe, Efewongbe Primary Care Unavailable Oleghe, Efewongbe Attending Unavailable Oleghe, Efewongbe Referring Unavailable Oleghe, Efewongbe Primary Care Unavailable Oleghe, Efewongbe Attending Unavailable Oleghe, Efewongbe Referring Unavailable Medications Current Medications Medication Drug Class(es) Dates Sig (Normalized) Sig (Original) benoxinate hydrochloride 4 mg/ml / fluorescein sodium 3 mg/ml ophthalmic solution (2 sources) Diagnostic Dye Start: 03-11-2025 End: 03-12-2025 fluorescein-benoxi hien 0.3-0.4 % 1 drop (FLURESS) Start: 03-11-2025 End: 03-12-2025 1 drop, BOTH EYES, DIRECT ED, Starting on Sun03/11/25 at 1600, Until Sun03/12/25 at 0359, Administer for applanation tonometry. In the event of a Fluress shortage, administer Rhodes-Fluor 1 drop into both eyes as directed for applanation tonometry cholecalciferol 0.025 mg oral tablet (8 sources) Vitamin D Start: 10-16-2019 take 1 tablet by mouth once daily Cholecalciferol (Vitamin D3) 1,000 UNIT tablet Active 1000 U PO DAILY October 16, 2019 1:00am cholecalciferol, vitamin D3, (VITAMIN D3 ORAL) (3 sources) cholecalciferol, vitamin D3, (VITAMIN D3 ORAL) Take by mouth. Active cholecalciferol, vitamin D3, (VITAMIN D3 ORAL) Take by mouth. 0 Active Comment on above: Take by mouth. Handicap Placard (6 sources) Start: 02-08-[address] Active 0 .ROUTE .MEDSUPPLY 1 February 08, 2023 12:00am Other reduced mobility As directed, length of time 3 years Start: 02-08-[address] Active 0 .ROUTE .MEDSUPPLY 1 February 07, 2023 11:00pm As directed, length of time 3 years Start: 02-08-[address] Active 0 .ROUTE .MEDSUPPLY 1 February 08, 2023 12:00am As directed, length of time 3 years Multivitamin (Multiple Vitam ins) tablet (6 sources) Start: 02-08-2023 Multivitamin ( Multiple Vitamins) tablet Active 1 {tbl} PO .four times weekly February 08, 2023 12:00am Start: 02-08-2023 take 1 tablet by isaías four times weekly Multivitamin (Multiple Vitamins) tablet Active 1 TABLET PO .four times weekly February 07, 2023 11:00pm Start: 02-08-2023 take 1 tablet by isaías th four times weekly Multivitamin (Multiple Vitamins) tablet Active 1 TABLET PO .four times weekly February 08, 2023 12:00am Multivitamin capsule (1 source) take 1 capsule by mo [facility] once daily Multivitamin capsule Take 1 capsule by mouth once daily. Active Propylene glycol (3 sources) propylene glycol (SYSTANE COMPLETE OPHTHALMIC) Use in eyes. Active propylene glycol (SYSTANE COMPLETE OPHTHALMIC) Use in eyes. 0 Active Comment on above: Use in eyes. tropicamide 10 mg/ml ophthalmic solution (2 sources) Anticholinergic Start: 03-11-2025 End: 03-12-2025 tropicamide 1 % 1 drop (MYDRIACYL) Start: 03-11-2025 End: 03-12-2025 1 drop, BOTH EYES, DIRECT ED, Starting on Sun03/11/25 at 1600, Until Sun03/12/25 at 0359, Administer for dilation VITAMIN B COMPLEX NO.12-NIACIN ORAL (3 sources) take 1 capsule by mo ut five times weekly VITAMIN B COMPLEX NO.12-NIACIN ORAL Take 1 capsule by mouth. 5 times a week Active take 1 capsule by mo uth five times weekly VITAMIN B COMPLEX NO.12-NIACIN ORAL Take 1 capsule by mouth. 5 times a week 0 Active Comment on above: Take 1 capsule by mo uth. 5 times a week Completed/Discontinued Medications Medication Drug Class(es) Dates Sig (Normalized) Sig (Original) acetaminophen 325 mg / HYDROcodone bitartrate 5 mg oral tablet (20 sources) Opioid Agonist Start: 11-01-2022 End: 02-08-2023 Hydrocodone-Acetami nophen 5-325 mg tablet Discontinued 1 {tbl} PO EVERY 6 HOURS NEEDED as needed for Pain 10 3 0 November 01, 2022 February 08, 2023 2:45pm Fracture of superior ramus of left pubis Closed fracture of left inferior pubic ramus Fracture of superior rim of left pubis, initial encounter for closed fracture Other specified fracture of left pubis, initial encounter for closed fracture Start: 11-01-2022 End: 02-08-2023 take 1 tablet by mouth every six hours as needed Hydrocodone-Acetaminophen Discontinued 1 TABLET PO EVERY 6 HOURS NEEDED 10 3 November 01, 2022 February 08, 2023 1:45pm Start: 10-17-2019 End: 10-22-2019 take 1-2 tablets by mouth every six hours as needed for pain Hydrocodone-Acetaminophen 1 TABLET table t Discontinued 1 - 2 {tbl} PO EVERY 6 HOURS NEEDED as needed for Pain 40 5 0 October 17, 2019 October 21, 2019 1:00am October 22, 2019 1:08am Postoperative pain Other acute postprocedural pain STOP ALL OTHER NARCOTICS AND TYLENOL PRODUCTS Start: 10-17-2019 End: 10-22-2019 take 1-2 tablets by mouth every six hours as needed Hydrocodone-Acetaminophen Discontinued 1 - 2 TABLET PO EVERY 6 HOURS NEEDED 40 5 October 17, 2019 October 22, 2019 12:08am STOP ALL OTHER NARCOTICS AND TYLENOL PRODUCTS Start: 10-08-2019 End: 10-11-2019 Hydrocodone-Acetaminophen 1 TABLET tablet Discontinued 1 {tbl} PO EVERY 6 HOURS NEEDED as needed for Pain 10 3 0 October 08, 2019 October 10, 2019 1:00am October 11, 2019 1:09am Nondisplaced fracture of distal end of left fibula Start: 10-08-2019 End: 10-11-2019 take 1 tablet by mouth every six hours as needed Hydrocodone-Acetaminophen Discontinued 1 TABLET PO EVERY 6 HOURS NEEDED 10 3 October 08, 2019 October 11, 2019 12:09am aspirin 81 mg delayed release oral tablet (10 sources) Platelet Aggregation Inhibitor, Nonsteroidal Anti-inflammatory Drug Start: 10-14-2019 End: 02-08-2023 take 1 tablet by mouth once daily Aspirin 81 mg tablet,delayed release (DR/EC) Discontinued 81 mg PO DAILY October 14, 2019 1:00am February 08, 2023 2:44pm Comment on above: Take 81 mg by mouth once daily. calcium carbonate 1500 mg oral tablet (4 sources) Start: 07-04-2023 End: 01-12-2025 take 1 tablet by mouth once daily Calcium Carbonate (Calcium 600) 600 mg calcium (1,500 mg) tablet Discontinued 600 mg PO DAILY July 04, 2023 12:00am January 12, 2025 12:51pm cephalexin 500 mg oral capsule (2 sources) Cephalosporin Antibacterial Start: 09-09-2019 End: 08-08-2022 cephALEXin (KEFLEX) 500 mg capsule losartan potassium 25 mg oral tablet (20 sources) Angiotensin 2 Receptor Ck Start: 07-05-2018 End: 04-02-2025 take 1 tablet by mouth once daily Losartan 25 MG tablet Discontinued 25 mg PO DAILY October 08, 2019 1:00am February 08, 2023 3:18pm Problems Active Problems Problem Classification Problem Date Documented Da te Episodic/Chronic Blindness and vision defects (12 sources) Regular astigmatism; Translations: [Regular astigmatism, unspecified eye] Onset: 08-26-2014 08-26-2014 Episodic Cataract (5 sources) Nuclear senile cataract; Translations: [Age-related nuclear cataract, unspecified eye] Onset: 08-26-2014 08-26-2014 Chronic Deficiency and other anemia (8 sources) Anemia; Translations: [Anemia, unspecified] 02-08-2023 Episodic E Codes: Fall (7 sources) Fall; Translations: [Unspecified fall, initial encounter] 11-01-2022 Episodic Essential hypertension (13 sources) Hypertensive disorder; Translations: [Essential (primary) hypertension] Onset: 01-12-2025 02-08-2023 Chronic Fracture of lower limb (8 sources) Closed fracture of distal fibula ; Translations: [Other fracture of upper and lower end of left fibula, initial encounter for closed fracture] 10-09-2019 Episodic Glaucoma (5 sources) Preglaucoma, unspecified, bilateral; Translations: [Preglaucoma, unspecified] Onset: 07-09-2018 07-09-2018 Chronic Osteoarthritis (15 sources) Arthritis; Translations: [Unspecified osteoarthritis, unspecified site] 02-08-2023 Chronic Other and unspecified benign neoplasm (4 sources) Pigmented skin lesion ; Translations: [Melanocytic nevi, unspecified] 07-04-2023 Episodic Other and unspecified benign neoplasm (1 source) Melanocytic nevi, unspecified; Translations: [Benign neoplasm of skin, site unspecified] 07-04-2023 Episodic Other bone disease and musculoskeletal deformities (4 sources) Osteopenia; Translations: [Other specified disorders of bone density and structure, unspecified site] 01-12-2025 Episodic Other eye disorders (3 sources) Bilateral vitreous floaters; Translations: [Other vitreous opacities, bilateral] Onset: 07-09-2018 07-09-2018 Chronic Other fractures (7 sources) Fracture of inferior pubic ramus; Translations: [Other specified fracture of left pubis, initial encounter for closed fracture] 11-01-2022 Episodic Other fractures (7 sources) Fracture of superior pubic ramus; Translations: [Fracture of superior rim of left pubis, initial encounter for closed fracture] 11-01-2022 Episodic Other injuries and conditions due to external causes (6 sources) Fracture of bone; Translations: [Other injury of unspecified body region, initial encounter] 02-08-2023 Episodic Comment on above: Left Ankle 2020Pelvi s 2022; ramus inferior, ramus superior Other non-traumatic joint disorders (1 source) Pain in left knee; Translations: [Pain in joint, lower leg] 10-21-2021 Episodic Residual codes; unclassified (1 source) Asymptomatic menopausal state; Translations: [Asymptomatic menopausal state] Onset: 04-21-2025 Episodic Past or Other Problems Problem Classification Problem Date Documented Da te Episodic/Chronic Deficiency and other anemia (3 sources) Anemia, unspecified; Translations: [Anemia, unspecified] Onset: 01-12-2025 02-08-2023 Episodic Diabetes mellitus without complication (13 sources) Prediabetes; Translations: [Prediabetes] Onset: 01-12-2025 02-08-2023 Episodic Inflammation; infection of eye (except that caused by tuberculosis or sexually transmitteddisease) (3 sources) Allergic conjunctivitis of bilateral eyes; Translations: [Acute atopic conjunctivitis, bilateral] Onset: 04-15-2019 04-15-2019 Episodic Other bone disease and musculoskeletal deformities (1 source) Other specified disorders of bone density and structure, unspecified site; Translations: [Other specified disorders of bone density and structure, unspecified site] Onset: 01-15-2025 Episodic Other eye disorders (3 sources) Disorder of lacrimal gland; Translations: [Dry eye syndrome of bilateral lacrimal glands] Onset: 04-15-2019 04-15-2019 Episodic Other screening for suspected conditions (not mental disorders or infectious disease) (1 source) Encounter for screening mammogram for malignant neoplasm of breast; Translations: [Encounter for screening mammogram for malignant neoplasm of breast] Onset: 09-08-2024 Episodic Results Test Name Value Interpretation Reference Range Facility Bone density reportOrdered B y: Wilton Razo on 04-16-2025 Study report Skeletal system DXA [facility] Imaging Services [address] [place] [address] Dexa Bone Density Study MR#: [id number] Acct: [id number] Name: PEGGY HANSEN Rep #: [id number] : 1945 F 80 From: Anish Razo MD PCP: Dr. Uriel Thorpe MD Status: R CLI Study:Dexa Bone Density Study Date of Exam: 04/15/25 Exam# [id number] Ordering Dr: Uriel Thorpe MD PROCEDURE: DEXA BONE DENSITY STUDY 04/15/2025 REASON FOR EXAM: POST MENOPAUSAL F, age 80 y/o . Postmenopausal. TECHNIQUE: DEXA BONE DENSITY STUDY COMPARISON: Prior study dated March 06, 2023. FINDINGS: BMD and T-SCORES Lumbar spine: 0.944 g/cm2, T-score -0.9 Levels: L1 through L4 Change from prior: Loss of 2%. Left femoral neck: 0.704 g/cm2, T-score -1.3 Femoral neck comparison data not recommended for monitoring change. Left total hip: 0.755 g/cm2, T-score -1.5 Change from prior: Loss of 3.2%. Right femoral neck: 0.748 g/cm2, T-score -0.9 Femoral neck comparison data not recommended for monitoring change. Right total hip: 0.831 g/cm2, T-score -0.9 Change from prior: Improvement of 1%. The World Health Organization has defined the following categories based on bonedensity: Normal bone density: T-score equal to or greater than -1.0 Osteopenia: T-score between -1.0 and -2.5 Osteoporosis: T-score equal to or less than -2.5 The patient does meet the pharmacological treatment recommendations for prevention of osteoporosis. BD/Dexa Bone Density Study IMPRESSION: OSTEOPENIA. Recommend follow-up as clinically warranted. Reading Location: [place] [address] CC: Dr. Uriel Thorpe MD ~ Retirement Administrator: Signed [facility] Dexa Bone Density Studyon Dexa Bone Density Study [facility] Imaging Services [address] [place] [address] Dexa Bone Density Study MR#: [id number] Acct: [id number] Name: PEGGY HANSEN Rep #: [id number] : 1945 F 80 From: Wilton alcaraz MD PCP: Dr. Uriel Thorpe MD Status: REG CLI Study: Dexa Bone Density Study Date of Exam: 04/15/25 Exam# [id number] Ordering Dr: Uriel Thorpe MD PROCEDURE: DEXA BONE DENSITY STUDY 04/15/2025 REASON FOR EXAM: POST MENOPAUSAL F, age 80 y/o . Postmenopausal. TECHNIQUE: DEXA BONE DENSITY STUDY COMPARISON: Prior study dated March 06, 2023. FINDINGS: BMD and T-SCORES Lumbar spine: 0.944 g/cm2, T-score -0.9 Levels: L1 through L4 Change from prior: Loss of 2%. Left femoral neck: 0.704 g/cm2, T-score -1.3 Femoral neck comparison data not recommended for monitoring change. Left total hip: 0.755 g/cm2, T-score -1.5 Change from prior: Loss of 3.2%. Right femoral neck: 0.748 g/cm2, T-score -0.9 Femoral neck comparison data not recommended for monitoring change. Right total hip: 0.831 g/cm2, T-score -0.9 Change from prior: Improvement of 1%. The World Health Organization has defined the following categories based on bone density: Normal bone density: T-score equal to or greater than -1.0 Osteopenia: T-score between -1.0 and -2.5 Osteoporosis: T-score equal to or less than -2.5 The patient does meet the pharmacological treatment recommendations for prevention of osteoporosis. BD/Dexa Bone Density Study IMPRESSION: OSTEOPENIA. Recommend follow-up as clinically warranted. Reading Location: [place] [address] CC: Dr. Uriel Thorpe MD Retirement Administrator: Signed Normal [facility] Absolute lymphocyte countOrd ered By: Uriel Thorpe on 01-12-2025 Lymphocytes Auto (Unsp spec) [#/Vol] 1.36 10*3/uL 0.83-4.51 [facility] Absolute neutrophil countOrd ered By: Uriel Thorpe on 01-12-2025 Neutrophils (Bld) [#/Vol] 2.6 10*3/uL 2.0-7.7 [facility] Anion gap in Serum or Plasma Ordered By: Uriel Thorpe on 01-12-2025 Anion gap [Moles/Vol] 10 mmol/L 5-15 [facility] Automated lymphocyte count a s percentage of total leukocytesOrdered By: Uriel Thorpe on 01-12-2025 Lymphocytes/100 WBC Auto (Unsp spec) 31.1 % 19-41 [facility] BUN/creatinine ratioOrdered By: Uriel Thorpe on 01-12-2025 Urea nitrogen/Creatinine [Mass ratio] 18.5 mg/mg 10- [facility] Basic Metabolic Profile (BMP )on 01-12-2025 BUN/CRE 18.5 RATIO Normal - [facility] Comment on above: Performed By: #### L 503.6030, L500.2500, L100.0100, L506.1001, L503.6550 #### [facility] [address] [place], [address] Calcium [Mass/Vol] 9.6 mg/dL Normal 7.6-11.[address] [facility] Comment on above: Performed By: #### L 503.6030, L500.2500, L100.0100, L506.1001, L503.6550 #### [facility] [address] [place], [address] Chloride [Moles/Vol] 98 mmol/L Normal 98-108 [facility] Comment on above: Performed By: #### L 503.6030, L500.2500, L100.0100, L506.1001, L503.6550 #### [facility] [address] [place], [address] CO2 [Moles/Vol] 27.0 mmol/L Normal 21.0-32.0 [facility] Comment on above: Performed By: #### L 503.6030, L500.2500, L100.0100, L506.1001, L503.6550 #### [facility] [address] [place], [address] Creatinine [Mass/Vol] 0.83 mg/dL Normal 0.70-1.20 [facility] Comment on above: Performed By: #### L 503.6030, L500.2500, L100.0100, L506.1001, L503.6550 #### [facility] [address] [place], [address] GAP 10 Normal 5-15 [facility] Comment on above: Performed By: #### L 503.6030, L500.2500, L100.0100, L506.1001, L503.6550 #### [facility] [address] [place], [address] GFR/1.73 sq M.predicted among non-blacks MDRD (S/P/Bld) [Vol rate/Area] 71 mL/min/{1.73_m2} Normal >60 [facility] Comment on above: Result Comment: mL/m in/1.73m2 CKD-EPI Creatinine Equation (2020) Performed By: #### L 503.6030, L500.2500, L100.0100, L506.1001, L503.6550 #### [facility] [address] [place], [address] Glucose [Mass/Vol] 114 mg/dL High 70-[address] [facility] Comment on above: Performed By: #### L 503.6030, L500.2500, L100.0100, L506.1001, L503.6550 #### [facility] [address] [place], [address] Potassium [Moles/Vol] 4.1 mmol/L Normal 3.3-5.1 [facility] Comment on above: Performed By: #### L 503.6030, L500.2500, L100.0100, L506.1001, L503.6550 #### [facility] [address] [place], [address] Sodium [Moles/Vol] 136 mmol/L Normal 133-[address] [facility] Comment on above: Performed By: #### L 503.6030, L500.2500, L100.0100, L506.1001, L503.6550 #### [facility] [address] [place], [address] Urea nitrogen [Mass/Vol] 15 mg/dL Normal 4-19 [facility] Comment on above: Performed By: #### L 503.6030, L500.2500, L100.0100, L506.1001, L503.6550 #### [facility] [address] [place], [address] Basophil percentageOrdered B y: Uriel Chouteresauriel on 01-12-2025 Basophils/100 WBC (Bld) 0.7 % 0-1 [facility] CBC W/Diff, Automatedon 040 Absolute Lymph 1.36 X10 3/uL Normal 0.83-4.51 [facility] Comment on above: Performed By: #### L 503.6030, L500.2500, L100.0100, L506.1001, L503.6550 #### [facility] [address] [place], [address] Absolute Neut 2.6 X10 3/uL Normal 2.0-7.7 [facility] Comment on above: Performed By: #### L 503.6030, L500.2500, L100.0100, L506.1001, L503.6550 #### [facility] [address] [place], [address] Basophils/100 WBC (Bld) 0.7 % Normal 0-1 [facility] Comment on above: Performed By: #### L 503.6030, L500.2500, L100.0100, L506.1001, L503.6550 #### [facility] [address] [place], [address] Eosinophils/100 WBC (Bld) 1.1 % Normal 0-5 [facility] Comment on above: Performed By: #### L 503.6030, L500.2500, L100.0100, L506.1001, L503.6550 #### [facility] [address] [place], [address] Erythrocyte distribution width (RBC) [Ratio] 13.0 % Normal 11.6-14.6 [facility] Comment on above: Performed By: #### L 503.6030, L500.2500, L100.0100, L506.1001, L503.6550 #### [facility] [address] [place], [address] Hematocrit (Bld) [Volume fraction] 36.2 % Low 37-47 [facility] Comment on above: Performed By: #### L 503.6030, L500.2500, L100.0100, L506.1001, L503.6550 #### [facility] [address] [place], [address] Hemoglobin (Bld) [Mass/Vol] 11.8 g/dL Low 12.0-15.0 [facility] Comment on above: Performed By: #### L 503.6030, L500.2500, L100.0100, L506.1001, L503.6550 #### [facility] [address] [place], [address] IG% 0.200 Normal 0.0-0.9 [facility] Comment on above: Result Comment: IG% - Immature Granulocytes (promyelocytes, myelocytes and metamyelocytes) > 1% indicates that a LEFT SHIFT is Present. Performed By: #### L 503.6030, L500.2500, L100.0100, L506.1001, L503.6550 #### [facility] [address] [place], [address] Lymphocytes/100 WBC (Bld) 31.1 % Normal 19-41 [facility] Comment on above: Performed By: #### L 503.6030, L500.2500, L100.0100, L506.1001, L503.6550 #### [facility] [address] [place], [address] MCH (RBC) [Entitic mass] 29.1 pg Normal 27.0-32.0 [facility] Comment on above: Performed By: #### L 503.6030, L500.2500, L100.0100, L506.1001, L503.6550 #### [facility] [address] [place], [address] MCHC (RBC) [Mass/Vol] 32.6 g/dL Normal 32-36 [facility] Comment on above: Performed By: #### L 503.6030, L500.2500, L100.0100, L506.1001, L503.6550 #### [facility] [address] [place], [address] MCV (RBC) [Entitic vol] 89.2 fL Normal 81-99 [facility] Comment on above: Performed By: #### L 503.6030, L500.2500, L100.0100, L506.1001, L503.6550 #### [facility] [address] [place], [address] Monocytes/100 WBC (Bld) 6.4 % Normal 0-10 [facility] Comment on above: Performed By: #### L 503.6030, L500.2500, L100.0100, L506.1001, L503.6550 #### [facility] [address] [place], [address] Neutrophils/100 WBC (Bld) 60.5 % Normal 47-70 [facility] Comment on above: Performed By: #### L 503.6030, L500.2500, L100.0100, L506.1001, L503.6550 #### [facility] [address] [place], [address] Nucleated RBC (Bld) [#/Vol] 0 10*3/uL Normal 0-5 [facility] Comment on above: Performed By: #### L 503.6030, L500.2500, L100.0100, L506.1001, L503.6550 #### [facility] [address] [place], [address] Platelet mean volume (Bld) [Entitic vol] 10.6 fL Normal 6.2-12.0 [facility] Comment on above: Performed By: #### L 503.6030, L500.2500, L100.0100, L506.1001, L503.6550 #### [facility] [address] [place], [address] Platelets (Bld) [#/Vol] 244 10*3/uL Normal 150-450 [facility] Comment on above: Performed By: #### L 503.6030, L500.2500, L100.0100, L506.1001, L503.6550 #### [facility] [facility] [address] [place], [address] RBC (Bld) [#/Vol] 4.06 10*6/uL Low 4.2-5.4 [facility] Comment on above: Performed By: #### L 503.6030, L500.2500, L100.0100, L506.1001, L503.6550 #### [facility] [address] [place], [address] RDW SD 42.8 fl Normal 35.1-43.9 [facility] Comment on above: Performed By: #### L [id number], L500.2500, L100.0100, L506.1001, L503.6550 #### [facility] [address] [place], [address] WBC (Bld) [#/Vol] 4.4 10*3/uL Normal 4.4-11.[address] [facility] Comment on above: Performed By: #### L [id number], L500.2500, L100.0100, L506.1001, L503.6550 #### [facility] [address] [place], [address] Calculated total iron bindin g capacityOrdered By: Uriel Thorpe on 01-12-2025 Total Iron Binding Capacity 320 ug/dL 250-450 [facility] Carbon dioxide, total [Moles /volume] in Central venous bloodOrdered By: Uriel Thorpe on 01-12-2025 CO2 [Moles/Vol] 27.0 mmol/L 21.0-32.0 [facility] Chloride assayOrdered By: Miguelina Thorpe on 01-12-2025 Chloride [Moles/Vol] 98 mmol/L 98-108 [facility] Eosinophil percentageOrdered By: Uriel Thorpe on 01-12-2025 Eosinophils/100 WBC (Bld) 1.1 % 0-5 [facility] Erythrocyte distribution wid th (RBC) [Ratio]Ordered By: Uriel Thorpe on 01-12-2025 Erythrocyte distribution width (RBC) [Entitic vol] 42.8 fL 35.1-43.9 [facility] Erythrocyte distribution wid th ratioOrdered By: Andibrazilnatan Thorpe on 01-12-2025 Erythrocyte distribution width (RBC) [Ratio] 13.0 % 11.6-14.6 [facility] Erythrocyte distribution wid th standard deviationOrdered By: stefanibrazilnaatn Thorpe on 01-12-2025 Erythrocyte distribution width (RBC) [Ratio] 42.8 fl 35.1-43.9 [facility] Ferritinon 01-12-2025 Ferritin [Mass/Vol] 158 ng/mL Normal 22-378 [facility] Comment on above: Performed By: #### L 503.6030, L500.2500, L100.0100, L506.1001, L503.6550 #### [facility] [address] [place], [place], [id number] GFR/1.73 sq M.predicted tracy g non-blacks MDRD (S/P/Bld) [Vol rate/Area]Ordered By: Uriel Thorpe on 01-12-2025 Estimated GFR (MDRD) Non-Af Amer 71 >60 [facility] Comment on above: mL/min/1.73m2 CKD-EP I Creatinine Equation (2020) Glomerular filtration rate ( GFR) estimation/1.73 sq m using serum, plasma, or whole bOrdered By: Uriel Thorpe on 01-12-2025 GFR/1.73 sq M.predicted among non-blacks MDRD (S/P/Bld) [Vol rate/Area] 71 mL/min/{1.73_m2} >60 [facility] Comment on above: mL/min/1.73m2 CKD-EP I Creatinine Equation (2020) Hematocrit Auto (Bld) [Volum e fraction]Ordered By: Uriel Thorpe on 01-12-2025 Hematocrit (Bld) [Volume fraction] 36.2 % Low 37-47 [facility] Hemoglobin measurementOrdere d By: Uriel Thorpe on 01-12-2025 Hemoglobin (Bld) [Mass/Vol] 11.8 g/dL Low 12.0-15.0 [facility] Immature granulocytes/100 WB C Auto (Bld)Ordered By: Uriel Thorpe on 01-12-2025 Immature granulocytes/100 WBC (Bld) 0.200 % 0.0-0.9 [facility] Comment on above: IG% - Immature Granu locytes (promyelocytes, myelocytes and metamyelocytes) > 1% indicates that a LEFT SHIFT is Present. Internal Medicine Office Vis stoney 01-12-2025 Internal Medicine Office Visit [facility] [address] [place] [address] [place] [address] OFFICE VISIT Date of Service: 01/12/25 MR#: [id number] Acct: [id number] Name: PEGGY HANSEN Rep #: [id number] : 1945 Provider: Dr. Uriel romero MD Age/Sex: 80/F Location: [facility] Status: Signed Intake Vital Signs 05/26/24 13:52 01/12/25 12:55 Height 5 ft 3.5 in 5 ft 3.5 in Weight: 165 lb 4 oz 169 lb BMI 28.8 29.5 BP 122/60 H 122/68 H Blood Pressure Location Lt brachial Lt brachial Position Sitting Sitting Respiration 16 18 Pulse 73 72 Pulse Source Monitor Monitor Temp 97.6 F L 98.2 F Temp Source Temporal Temporal Pulse Oximetry (%) 97 98 Oxygen Delivery Method room air room air Intake Visit Reasons: med fu Chief Complaint: Follow-up chronic conditions Is patient in pain?: No Allergies No Known Allergies Allergy (Verified 01/12/25 12:56) Medications ???Medication ???Instructions ???Recorded ???Confirmed ???Type cholecalciferol (vitamin D3) 25 1,000 unit PO DAILY 10/16/1901/12 History mcg (1,000 unit) tablet Handicap Placard #1 ea 02/08/23 01/12/25 Rx multivitamin (Multiple Vitamins 1 tab PO .four times weekly 01/12/25 History tablet) losartan 25 mg tablet 25 mg PO DAILY #90 tabs 12/09/24 0 12/09/24 Rx Have you fallen in the past year?: No [facility] Medical History (Updated 01/12/25 @ 13:[address] Uriel Thorpe MD) Osteopenia Skin mole Health care maintenance Osteoarthritis Borderline type 2 diabetes mellitus Fracture Arthritis Anemia Hypertension Surgical History History of neck surgery H/O: Family History Mother Cancer Father Depression Diabetes Mental disorder Sister Diabetes Thyroid disorder Brother Myocardial infarction, Onset Age: 65 Thyroid disorder Uncle Psychiatric care Aunt Psychiatric care Grandfather CVA (cerebral vascular accident), Onset Age: 72 Grandmother Thyroid disorder Social History Smoking Status: Never smoker alcohol intake: current alcohol intake frequency: holidays/special occasions only Alcohol type: wine substance use type: does not use what type of physical activity do you participate in: walking and other details: YONAS [facility]I frequency: 1-2 times per week seatbelt use: always do you feel safe at home: Yes HPI HPI Chief Complaint: Follow-up chronic conditions Details: PEGGY HANSEN, is a 80 F who presents to the office today for follow-up of her chronic conditions. No acute concerns at this time. History of borderline diabetes mellitus, A1c today is at 6.2 up from 6. Has not been as active lately but plans to make changes. Currently not on any medication. History of hypertension, blood pressure today at 122/68 mmHg. Currently on losartan. No chest pain, palpitation or shortness of breath. Also history of osteopenia. Last bone density scan was in February 2023. Taking vitamin D supplements consistently. No recent fracture. History of anemia, she denies dark or bloody stool or unintentional weight changes. She also reports prior history of low iron. ROS Const Constitutional: No body ache, chills, excessive sweating, fatigue, fever(s), frequent falls, headache(s), snoring, weight change, sleep problems, abnormal sleep pattern or change in appetite Eyes Eyes: No blurry vision, change in vision, bulging eyes, floaters, eye pain or Light sensitivity ENT ENT: No abnormal hearing, ear or mastoid pain, tinnitus, balance problems, nosebleed/epistaxis , nasal congestion, headache(s), neck pain or sore throat Resp Respiratory: No cough, excessive phlegm production, pain on inspiration, shortness of breath, snoring or wheezing Cardio Cardiology: No chest pain at rest, chest pain with exertion, excessive sweating, shortness of breath, dyspnea on exertion, lightheadedness, orthopnea or palpitations Gastro GI: No abdominal pain, change in bowel habits, constipation, cramping, diarrhea, nausea/dyspepsia or vomiting Genitourinary-Femal e: No burning urination, painful urination, urinary incontinence, urinary frequency, suprapubic fullness, side pain, abnormal vaginal bleeding or pelvic pain Musc Musculoskeletal: No abnormal gait, joint pain, back pain, limited range of motion, neck pain, numbness or tingling Skin Skin: No dry skin, redness, excessive hair growth, yellowing of the eye, lesions, itchy eyes, rash or wounds Neuro Neurology: No abnormal gait, abnormal hearing, behavioral changes, unsteady gait/balance, frequent falls, headache(s), memory loss, numbness or tingling Psych Psychiatric: No abnormal sleep pattern, No anxiety, No behavioral changes, No change in ap (more content not included)... Normal [facility] Iron (Unsp spec) [Mass/Mass] Ordered By: Urile Thorpe on 01-12-2025 Iron [Mass/Vol] 72 ug/dL 50-170 [facility] Iron measurement (mass/mass) Ordered By: Uriel Thorpe on 01-12-2025 Iron (Unsp spec) [Mass/Mass] 72 ug/dL 50-170 [facility] Iron saturation [Mass fracti on]Ordered By: Uriel Thorpe on 01-12-2025 Iron Saturation 22.0 % 13-59 [facility] Iron+Iron Binding Capacityon 01-12-2025 Iron [Mass/Vol] 72 ug/dL Normal 50-170 [facility] Comment on above: Performed By: #### L 503.6030, L500.2500, L100.0100, L506.1001, L503.6550 #### [facility] [address] [place], [address] IRON SATURATION 22.0 Normal 13-59 [facility] Comment on above: Performed By: #### L 503.6030, L500.2500, L100.0100, L506.1001, L503.6550 #### [facility] [address] [place], [address] TIBC 320 ug/dL Normal 250-450 [facility] Comment on above: Performed By: #### L 503.6030, L500.2500, L100.0100, L506.1001, L503.6550 #### [facility] [address] [place], [place], [facility] UIBC 248 ug/dL Normal 228-428 [facility] Comment on above: Performed By: #### L 503.6030, L500.2500, L100.0100, L506.1001, L503.6550 #### [facility] [address] [place], [address] Laboratory - Hematology and Cell countsOrdered By: Uriel Thorpe on 01-12-2025 HbA1c (Bld) [Mass fraction] 6.2 % 4.2-6.3 [facility] Lymphocytes Auto (Unsp spec) [#/Vol]Ordered By: Uriel Thorpe on 01-12-2025 Lymphocytes (Bld) [#/Vol] 1.36 10*3/uL 0.83-4.51 [facility] Lymphocytes/100 WBC Auto (Un sp spec)Ordered By: Uriel Thorpe on 01-12-2025 Lymphocytes/100 WBC (Bld) 31.1 % 19-41 [facility] MCV (mean corpuscular volume ) determinationOrdered By: Uriel Thorpe on 01-12-2025 MCV (RBC) [Entitic vol] 89.2 fL 81-99 [facility] Mean corpuscular hemoglobin (MCH) determinationOrdered By: Uriel Thorpe on 01-12-2025 MCH (RBC) [Entitic mass] 29.1 pg 27.0-32.0 [facility] Mean corpuscular hemoglobin concentration (MCHC) determinationOrdered By: Uriel Thorpe on 01-12-2025 MCHC (RBC) [Mass/Vol] 32.6 g/dL 32-36 [facility] Mean platelet volume determi nationOrdered By: Uriel Thorpe on 01-12-2025 Platelet mean volume (Bld) [Entitic vol] 10.6 fL 6.2-12.0 [facility] Monocyte percentageOrdered B y: Uriel Thorpe on 01-12-2025 Monocytes/100 WBC (Bld) 6.4 % 0-10 [facility] Neutrophil percentageOrdered By: Uriel Thorpe on 01-12-2025 Neutrophils/100 WBC (Bld) 60.5 % 47-70 [facility] No Panel InformationOrdered By: Uriel Thorpe on 01-12-2025 Unsaturated Iron Binding Capacity 248 ug/dL 228-428 [facility] Nucleated red blood cell per centageOrdered By: Uriel Thorpe on 01-12-2025 Nucleated RBC/100 WBC (Bld) [Ratio] 0 % 0-5 [facility] Platelet countOrdered By: Miguelina stefanibruce Thorpe on 01-12-2025 Platelets (Bld) [#/Vol] 244 10*3/uL 150-450 [facility] Potassium (Unsp spec) [Mass/ Vol]Ordered By: Uriel Thorpe on 01-12-2025 Potassium [Moles/Vol] 4.1 mmol/L 3.3-5.1 [facility] Potassium measurement (mass/ volume)Ordered By: Uriel Thorpe on 01-12-2025 Potassium (Unsp spec) [Mass/Vol] 4.1 mmol/L 3.3-5.1 [facility] RBC Auto (Bld) [#/Vol]Ordere d By: Uriel Thorpe on 01-12-2025 RBC (Bld) [#/Vol] 4.06 10*6/uL Low 4.2-5.4 [facility] Serum creatinine measurement (mass/volume)Ordered By: Uriel Thorpe on 01-12-2025 Creatinine [Mass/Vol] 0.83 mg/dL 0.70-1.20 [facility] Serum glucose measurement (m ass/volume)Ordered By: Uriel Thorpe on 01-12-2025 Glucose [Mass/Vol] 114 mg/dL High 70-[address] [facility] Serum or plasma calcium bethel urement (mass/volume)Ordered By: Uriel Thorpe on 01-12-2025 Calcium [Mass/Vol] 9.6 mg/dL 7.6-11.[address] [facility] Serum or plasma ferritin annabel surement (mass/volume)Ordered By: Uriel Thorpe on 01-12-2025 Ferritin [Mass/Vol] 158 ng/mL 22-378 [facility] Serum or plasma iron saturat ion measurement (mass fraction)Ordered By: Uriel Thorpe on 01-12-2025 Iron saturation [Mass fraction] 22.0 % 13-59 [facility] Serum or plasma urea nitroge n measurement (mass/volume)Ordered By: Uriel Thorpe on 01-12-2025 Urea nitrogen [Mass/Vol] 15 mg/dL 4-19 [facility] Sodium levelOrdered By: Andi Thorpe on 01-12-2025 Sodium [Moles/Vol] 136 mmol/L 133-[address] [facility] Vitamin D, 25-hydroxyOrdered By: Uriel Thorpe on 01-12-2025 Vitamin D 25-Hydroxy 47.9 ng/mL 30-100 [facility] Comment on above: Vitamin D StatusDefi ciency: <20 ng/mL (50nmol/L)Insufficiency: 20-30 ng/mL (50-75 nmol/L)Sufficiency: 30-100 ng/mL (75-250 nmol/L)Toxicity: >100 ng/mL (>250 nmol/L) Vitamin D,25 Hydroxyon 01-12 Vitamin D 25-OH 47.9 ng/mL Normal 30-100 [facility] Comment on above: Result Comment: Marce min D Status Deficiency: <20 ng/mL (50nmol/L) Insufficiency: 20-30 ng/mL (50-75 nmol/L) Sufficiency: 30-100 ng/mL (75-250 nmol/L) Toxicity: >100 ng/mL (>250 nmol/L) Performed By: #### L 503.6030, L500.2500, L100.0100, L506.1001, L503.6550 #### [facility] [address] [facility] [place], [address] White blood cell (WBC) count Ordered By: Uriel Thorpe on 01-12-2025 WBC (Bld) [#/Vol] 4.4 10*3/uL 4.4-11.[address] [facility] SCRN MAMM (CAD)W/ANTOINE BILATo n 08-14-2024 SCRN MAMM (CAD)W/ANTOINE BILAT [facility] Imaging Services [address] [place], [place] [id number] SCRN MAMM (CAD)W/ANTOINE BILAT MR#: [id number] Acct: [id number] Name: PEGGY HANSEN Rep #: [id number] : 1945 F 79 From: Wilton alcaraz MD PCP: Dr. Uriel Thorpe MD Status: [facility] Study: SCRN MAMM (CAD)W/ANTOINE BILAT Date of Exam: 04/30 Exam# [id number] Ordering Dr: Uriel Thorpe MD -[id number] MAMMOGRAPHY - BILATERAL SCREENING REASON FOR EXAM: Female, 79 years old. Routine annual screening examination. PERTINENT HISTORY: Aunt with breast cancer. Prior left stereotactic breast biopsy. TECHNIQUE: Digital bilateral breast antoine (3D mammographic acquisition) in the CC and MLO projections. 2-D mediolateral oblique (MLO) and craniocaudad (CC) views of both breasts were obtained. CAD: Full Field Digital Mammography with Computer Added Detection was performed. COMPARISON: Comparison is made with prior study of March 06, 2023 and November 02, 2020. FINDINGS: Breast Composition: The breasts are heterogeneously dense, which may obscure small masses. There are no dominant masses or suspicious calcifications. Once again, a tissue clip marker is seen in the axillary region of the left breast. No other significant abnormalities are identified. There has been no significant change since the prior study. BI/SCRN MAMM (CAD)W/ANTOINE BILAT IMPRESSION: Stable bilateral screening mammogram. Yearly follow-up mammogram recommended. (A) ASSESSMENT CATEGORY: BIRADS Category 1: Negative. A letter regarding these results will be sent to the patient by the facility within 30 days. Approximately 10% of breast cancers are not detected by mammography. A normal mammogram should not delay biopsy of a clinically suspicious abnormality. [id number] Electronically Signed: Wilton Razo MD at 9:18 EST , CC: Dr. Uriel Thorpe MD Retirement Administrator: Signed Normal [facility] Basophil percentageOrdered B y: Uriel Thorpe on 11-05-2023 Chloride [Moles/Vol] 102 mmol/L 98-107 [facility] Glucose [Mass/Vol] 111 mg/dL 74-[address] [facility] Comment on above: Fasting Glucose resu lt from 100 to 125 mg/dL suggests IMPAIRED HOMEOSTASIS per A.D.A. criteria. Potassium [Moles/Vol] 4.0 mmol/L 3.5-5.1 [facility] Sodium [Moles/Vol] 136 mmol/L 136-[address] [facility] - Chemistry and C hemistry - challengeOrdered By: Uriel Thorpe on 11-05-2023 CO2 [Moles/Vol] 30.0 mmol/L 21.0-32.0 [facility] Urea nitrogen/Creatinine [Mass ratio] 25.2 mg/mg 10-20 [facility] No Panel InformationOrdered By: Uriel Thorpe on 11-05-2023 Estimated GFR (MDRD) Amer 80 mL/min >60 [facility] Comment on above: GFR Calc Estimated GFR (MDRD) Non-Af Amer 66 mL/min >60 [facility] Comment on above: Non- GFR Calc Serum or plasma calcium bethel urement (mass/volume)Ordered By: Uriel Thorpe on 11-05-2023 Calcium [Mass/Vol] 9.6 mg/dL 8.5-10.[address] [facility] Serum or plasma creatinine m easurement (mass/volume)Ordered By: Uriel Thorpe on 11-05-2023 Creatinine [Mass/Vol] 0.87 mg/dL 0.55-1.02 [facility] Comment on above: The validity of the calculated GFR & GFRAA in patients over 70 years has not been determined. Clinical correlation is essential. Serum or plasma urea nitroge n measurement (mass/volume)Ordered By: Uriel Thorpe on 11-05-2023 Urea nitrogen [Mass/Vol] 22 mg/dL 7-18 [facility] Thin prep Papanicolaou smear with manual screeningOrdered By: Uriel Thorpe on 11-05-2023 Thin prep Papanicolaou smear with manual screening 4 5-15 [facility] Whole blood hemoglobin A1c/t otal hemoglobin ratio (mass fraction)Ordered By: Ureil Thorpe on 11-05-2023 HbA1c (Bld) [Mass fraction] 5.9 % 3.8-5.6 [facility] Comment on above: Normal < 5.7 % Predi abetic 5.7 - 6.4 % Diabetic >or= 6.5 % Please note range changes. Absolute lymphocyte countOrd ered By: Uriel Thorpe on 07-04-2023 Lymphocytes Auto (Unsp spec) [#/Vol] 1.30 10*3/uL 0.83-4.51 [facility] Basophil percentageOrdered B y: Uriel Thorpe on 07-04-2023 Basophils/100 WBC (Bld) 0.7 % 0-1 [facility] Chloride [Moles/Vol] 100 mmol/L 98-107 [facility] Eosinophils/100 WBC (Bld) 1.3 % 0-5 [facility] Glucose [Mass/Vol] 117 mg/dL 74-[address] [facility] Comment on above: Fasting Glucose resu lt from 100 to 125 mg/dL suggests IMPAIRED HOMEOSTASIS per A.D.A. criteria. Neutrophils (Bld) [#/Vol] 2.9 10*3/uL 2.0-7.7 [facility] Neutrophils/100 WBC (Bld) 62.3 % 47-70 [facility] Potassium [Moles/Vol] 4.2 mmol/L 3.5-5.1 [facility] Sodium [Moles/Vol] 135 mmol/L 136-[address] [facility] WBC (Bld) [#/Vol] 4.6 10*3/uL 4.4-11.[address] [facility] Blood erythrocytes count (nu mber/volume)Ordered By: Uriel Thorpe on 07-04-2023 RBC (Bld) [#/Vol] 4.16 10*6/uL 4.2-5.4 [facility] Blood hemoglobin measurement (mass/volume)Ordered By: Uriel Thorpe on 07-04-2023 Hemoglobin (Bld) [Mass/Vol] 12.1 g/dL 12.0-15.0 [facility] Blood lymphocytes/100 leukoc ytesOrdered By: Uriel Thorpe on 07-04-2023 Lymphocytes/100 WBC (Bld) 28.3 % 19-41 [facility] Blood monocytes/100 leukocyt esOrdered By: Uriel Thorpe on 07-04-2023 Monocytes/100 WBC (Bld) 7.0 % 0-10 [facility] Blood platelet mean volumeOr dered By: Uriel Thorpe on 07-04-2023 Platelet mean volume (Bld) [Entitic vol] 11.0 fL 6.2-12.0 [facility] Determination of erythrocyte mean corpuscular volume (MCV)Ordered By: Uriel Thorpe on 07-04-2023 MCV (RBC) [Entitic vol] 90.4 fL 81-99 [facility] Hematocrit Auto (Bld) [Volum e fraction]Ordered By: Uriel Thorpe on 07-04-2023 Hematocrit (Bld) [Volume fraction] 37.6 % 37-47 [facility] - Chemistry and C hemistry - challengeOrdered By: Uriel Thorpe on 07-04-2023 CO2 [Moles/Vol] 31.0 mmol/L 21.0-32.0 [facility] Urea nitrogen/Creatinine [Mass ratio] 17.3 mg/mg 10-20 [facility] - Hematology and Cell countsOrdered By: Uriel Thorpe on 07-04-2023 Erythrocyte distribution width (RBC) [Entitic vol] 44.0 fL 35.1-43.9 [facility] Erythrocyte distribution width (RBC) [Ratio] 13.2 % 11.6-14.6 [facility] Immature granulocytes/100 WBC (Bld) 0.400 % 0.0-0.9 [facility] Comment on above: IG% - Immature Granu locytes (promyelocytes, myelocytes and metamyelocytes) > 1% indicates that a LEFT SHIFT is Present. MCH (RBC) [Entitic mass] 29.1 pg 27.0-32.0 [facility] Nucleated RBC/100 WBC (Bld) [Ratio] 0 % 0-5 [facility] - Hematology and Cell countson 07-04-2023 HbA1c (Bld) [Mass fraction] 6.0 % 4.2-6.3 [facility] MCHC Auto (RBC) [Mass/Vol]Or dered By: Uriel Thorpe on 07-04-2023 MCHC (RBC) [Mass/Vol] 32.2 g/dL 32-36 [facility] No Panel InformationOrdered By: Uriel Thorpe on 07-04-2023 Estimated GFR (MDRD) Amer 70 mL/min >60 [facility] Comment on above: GFR Calc Estimated GFR (MDRD) Non-Af Amer 58 mL/min >60 [facility] Comment on above: Non- GFR Calc Platelets bldOrdered By: Mekhi Thorpe on 07-04-2023 Platelets (Bld) [#/Vol] 265 10*3/uL 150-450 [facility] Serum or plasma calcium bethel urement (mass/volume)Ordered By: Uriel Thorpe on 07-04-2023 Calcium [Mass/Vol] 9.6 mg/dL 8.5-10.[address] [facility] Serum or plasma creatinine m easurement (mass/volume)Ordered By: Uriel Thorpe on 07-04-2023 Creatinine [Mass/Vol] 0.98 mg/dL 0.55-1.02 [facility] Comment on above: The validity of the calculated GFR & GFRAA in patients over 70 years has not been determined. Clinical correlation is essential. Serum or plasma urea nitroge n measurement (mass/volume)Ordered By: Uriel Thorpe on 07-04-2023 Urea nitrogen [Mass/Vol] 17 mg/dL 7-18 [facility] Thin prep Papanicolaou smear with manual screeningOrdered By: Uriel Thopre on 07-04-2023 Thin prep Papanicolaou smear with manual screening 4 5-15 [facility] Absolute lymphocyte countOrd ered By: Dr. Thorpe on 02-08-2023 Lymphocytes Auto (Unsp spec) [#/Vol] 1.55 10*3/uL 0.83-4.51 [facility] Basophil percentageOrdered B y: Dr. Thorpe on 02-08-2023 Basophils/100 WBC (Bld) 0.7 % 0-1 [facility] Bilirubin [Mass/Vol] 0.40 mg/dL 0.20-1.00 [facility] Comment on above: For patients on eltr ombopag therapy, use of Dimension [place] TBIL is not recommended. Chloride [Moles/Vol] 99 mmol/L 98-107 [facility] Cholesterol [Mass/Vol] 202 mg/dL <200 [facility] Comment on above: <200 mg/dL Desirable 200-240 mg/dL Borderline >240 mg/dL High Risk Eosinophils/100 WBC (Bld) 1.5 % 0-5 [facility] Glucose [Mass/Vol] 103 mg/dL 74-[address] [facility] Comment on above: Fasting Glucose resu lt from 100 to 125 mg/dL suggests IMPAIRED HOMEOSTASIS per A.D.A. criteria. Neutrophils (Bld) [#/Vol] 3.2 10*3/uL 2.0-7.7 [facility] Neutrophils/100 WBC (Bld) 58.8 % 47-70 [facility] Potassium [Moles/Vol] 4.6 mmol/L 3.5-5.1 [facility] Protein [Mass/Vol] 7.8 g/dL 6.4-8.[address] [facility] Sodium [Moles/Vol] 137 mmol/L 136-[address] [facility] Triglyceride [Mass/Vol] 139 mg/dL <199 [facility] Comment on above: The drugs N-Acetylcy steine and Metamizole may falsely depress this assay.Serum Triglycerides Reference Interval Normal <150 mg/dL Borderline high 150 - 199 mg/dL High 200 - 499 mg/dL Very High > or = 500 mg/dL WBC (Bld) [#/Vol] 5.4 10*3/uL 4.4-11.[address] [facility] Blood erythrocytes count (nu mber/volume)Ordered By: Dr. Thorpe on 02-08-2023 RBC (Bld) [#/Vol] 4.06 10*6/uL 4.2-5.4 [facility] Blood hemoglobin measurement (mass/volume)Ordered By: Dr. Thorpe on 02-08-2023 Hemoglobin (Bld) [Mass/Vol] 11.5 g/dL 12.0-15.0 [facility] Blood lymphocytes/100 leukoc ytesOrdered By: Dr. Thorpe on 02-08-2023 Lymphocytes/100 WBC (Bld) 28.9 % 19-41 [facility] Blood monocytes/100 leukocyt esOrdered By: Dr. Thorpe on 02-08-2023 Monocytes/100 WBC (Bld) 9.7 % 0-10 [facility] Blood platelet mean volumeOr dered By: Dr. Thorpe on 02-08-2023 Platelet mean volume (Bld) [Entitic vol] 10.8 fL 6.2-12.0 [facility] Determination of erythrocyte mean corpuscular volume (MCV)Ordered By: Dr. Thorpe on 02-08-2023 MCV (RBC) [Entitic vol] 90.1 fL 81-99 [facility] Hematocrit Auto (Bld) [Volum e fraction]Ordered By: Dr. Thorpe on 02-08-2023 Hematocrit (Bld) [Volume fraction] 36.6 % 37-47 [facility] Laboratory - Chemistry and C hemistry - challengeOrdered By: Dr. Thorpe on 02-08-2023 ALP [Catalytic activity/Vol] 100 U/L 45-117 [facility] ALT [Catalytic activity/Vol] 36 U/L 13-56 [facility] CO2 [Moles/Vol] 29.0 mmol/L 21.0-32.0 [facility] Globulin (S) [Mass/Vol] 3.8 g/dL 2.2-4.2 [facility] Urea nitrogen/Creatinine [Mass ratio] 19.3 mg/mg 10-20 [facility] Laboratory - Hematology and Cell countsOrdered By: Dr. Thorpe on 02-08-2023 Erythrocyte distribution width (RBC) [Entitic vol] 44.4 fL 35.1-43.9 [facility] Erythrocyte distribution width (RBC) [Ratio] 13.4 % 11.6-14.6 [facility] Immature granulocytes/100 WBC (Bld) 0.400 % 0.0-0.9 [facility] Comment on above: IG% - Immature Granu locytes (promyelocytes, myelocytes and metamyelocytes) > 1% indicates that a LEFT SHIFT is Present. MCH (RBC) [Entitic mass] 28.3 pg 27.0-32.0 [facility] Nucleated RBC/100 WBC (Bld) [Ratio] 0 % 0-5 [facility] MCHC Auto (RBC) [Mass/Vol]Or dered By: Dr. Thorpe on 02-08-2023 MCHC (RBC) [Mass/Vol] 31.4 g/dL 32-36 [facility] No Panel InformationOrdered By: Dr. Thorpe on 02-08-2023 Estimated GFR (MDRD) Amer 59 mL/min >60 [facility] Comment on above: GFR Calc Estimated GFR (MDRD) Non-Af Amer 49 mL/min >60 [facility] Comment on above: Non- GFR Calc Vitamin D 25-Hydroxy 48.9 ng/mL [facility] Comment on above: Vitamin D 25(OH) Sta tus Range Deficiency <20 ng/mL (50nmol/L) Insufficiency 20 - 30 ng/mL (50 - 75 nmol/L) Sufficiency 30 - 100 ng/mL (75 - 250 nmol/L) Toxicity >100 ng/mL (>250 nmol/L) Platelets bldOrdered By: Dr. Thorpe on 02-08-2023 Platelets (Bld) [#/Vol] 260 10*3/uL 150-450 [facility] Serum or plasma albumin bethel urement (mass/volume)Ordered By: Dr. Thorpe on 02-08-2023 Albumin [Mass/Vol] 4.0 g/dL 3.2-5.[address] [facility] Serum or plasma albumin/glob ulin mass ratioOrdered By: Dr. Thorpe on 02-08-2023 Albumin/Globulin [Mass ratio] 1.1 {ratio} 0.9-2.4 [facility] Serum or plasma calcium bethel urement (mass/volume)Ordered By: Dr. Thorpe on 02-08-2023 Calcium [Mass/Vol] 9.4 mg/dL 8.5-10.[address] [facility] Serum or plasma cholesterol in HDL measurement (mass/volume)Ordered By: Dr. Thorpe on 02-08-2023 Cholesterol in HDL [Mass/Vol] 45 mg/dL >40 [facility] Comment on above: The drugs N-Acetylcy steine and Metamizole may falsely depress this assay. Reference Range HDL <40 mg/dL Low HDL Cholesterol HDL >or= 60 mg/dL High HDL Cholesterol Serum or plasma cholesterol in VLDL measurement (mass/volume)Ordered By: Dr. Thorpe on 02-08-2023 Cholesterol in VLDL [Mass/Vol] 28 mg/dL 5-40 [facility] Serum or plasma creatinine m easurement (mass/volume)Ordered By: Dr. Thorpe on 02-08-2023 Creatinine [Mass/Vol] 1.14 mg/dL 0.55-1.02 [facility] Comment on above: The validity of the calculated GFR & GFRAA in patients over 70 years has not been determined. Clinical correlation is essential. Serum or plasma low density lipoprotein (LDL) cholesterol measurement (mass/volume)Ordered By: Dr. Thorpe on 02-08-2023 Cholesterol in LDL [Mass/Vol] 129 mg/dL 0-130 [facility] Serum or plasma urea nitroge n measurement (mass/volume)Ordered By: Dr. Thorpe on 02-08-2023 Urea nitrogen [Mass/Vol] 22 mg/dL 7-18 [facility] Thin prep Papanicolaou smear with manual screeningOrdered By: Dr. Thorpe on 02-08-2023 Thin prep Papanicolaou smear with manual screening 21 U/L 15-37 [facility] Thin prep Papanicolaou smear with manual screening 9 5-15 [facility] Whole blood hemoglobin A1c/t otal hemoglobin ratio (mass fraction)Ordered By: Dr. Thorpe on 02-08-2023 HbA1c (Bld) [Mass fraction] 5.9 % 3.8-5.6 [facility] Comment on above: Normal < 5.7 % Predi abetic 5.7 - 6.4 % Diabetic >or= 6.5 % Please note range changes. Absolute lymphocyte counton 03-03-2022 Lymphocytes Auto (Unsp spec) [#/Vol] 1.16 10*3/uL 0.83-4.51 [facility] Work Phone: Basophil percentageon 2021 Basophils/100 WBC (Bld) 0.7 % 0-1 [facility] Work Phone: Bilirubin [Mass/Vol] 0.40 mg/dL 0.20-1.00 [facility] Work Phone: Comment on above: For patients on eltr ombopag therapy, use of Dimension [place] TBIL is not recommended. Chloride [Moles/Vol] 102 mmol/L 98-107 [facility] Work Phone: Cholesterol [Mass/Vol] 196 mg/dL <200 [facility] Work Phone: Comment on above: <200 mg/dL Desirable 200-240 mg/dL Borderline >240 mg/dL High Risk Eosinophils/100 WBC (Bld) 1.7 % 0-5 [facility] Work Phone: Glucose [Mass/Vol] 115 mg/dL 74-[address] [facility] Work Phone: Comment on above: Fasting Glucose resu lt from 100 to 125 mg/dL suggests IMPAIRED HOMEOSTASIS per A.D.A. criteria. Neutrophils (Bld) [#/Vol] 2.6 10*3/uL 2.0-7.7 [facility] Work Phone: Neutrophils/100 WBC (Bld) 61.7 % 47-70 [facility] Work Phone: Potassium [Moles/Vol] 4.5 mmol/L 3.5-5.1 [facility] Work Phone: Protein [Mass/Vol] 7.6 g/dL 6.4-8.[address] [facility] Work Phone: Sodium [Moles/Vol] 137 mmol/L 136-[address] [facility] Work Phone: Triglyceride [Mass/Vol] 138 mg/dL [facility] Work Phone: Comment on above: The drugs N-Acetylcy steine and Metamizole may falsely depress this assay.Serum Triglycerides Reference Interval Normal <150 mg/dL Borderline high 150 - 199 mg/dL High 200 - 499 mg/dL Very High > or = 500 mg/dL WBC (Bld) [#/Vol] 4.2 10*3/uL 4.4-11.[address] [facility] Work Phone: Blood erythrocytes count (nu mber/volume)on 03-03-2022 RBC (Bld) [#/Vol] 3.89 10*6/uL 4.2-5.4 [facility] Work Phone: Blood hemoglobin measurement (mass/volume)on 03-03-2022 Hemoglobin (Bld) [Mass/Vol] 11.4 g/dL 12.0-15.0 [facility] Work Phone: Blood lymphocytes/100 leukoc yteson 03-03-2022 Lymphocytes/100 WBC (Bld) 27.4 % 19-41 [facility] Work Phone: Blood monocytes/100 leukocyt eson 03-03-2022 Monocytes/100 WBC (Bld) 8.0 % 0-10 [facility] Work Phone: Blood platelet mean volumeon 03-03-2022 Platelet mean volume (Bld) [Entitic vol] 10.7 fL 6.2-12.0 [facility] Work Phone: Determination of erythrocyte mean corpuscular volume (MCV)on 03-03-2022 MCV (RBC) [Entitic vol] 88.9 fL 81-99 [facility] Work Phone: Hematocrit Auto (Bld) [Volum e fraction]on 03-03-2022 Hematocrit (Bld) [Volume fraction] 34.6 % 37-47 [facility] Work Phone: Laboratory - Chemistry and C hemistry - challengeon 03-03-2022 ALP [Catalytic activity/Vol] 70 U/L 45-117 [facility] Work Phone: ALT [Catalytic activity/Vol] 41 U/L 13-56 [facility] Work Phone: CO2 [Moles/Vol] 30.0 mmol/L 21.0-32.0 [facility] Work Phone: Globulin (S) [Mass/Vol] 3.5 g/dL 2.2-4.2 [facility] Work Phone: Urea nitrogen/Creatinine [Mass ratio] 23.8 mg/mg 10-20 [facility] Work Phone: Laboratory - Hematology and Cell countson 03-03-2022 Erythrocyte distribution width (RBC) [Entitic vol] 44.5 fL 35.1-43.9 [facility] Work Phone: Erythrocyte distribution width (RBC) [Ratio] 13.7 % 11.6-14.6 [facility] Work Phone: Immature granulocytes/100 WBC (Bld) 0.500 % 0.0-0.9 [facility] Work Phone: Comment on above: IG% - Immature Granu locytes (promyelocytes, myelocytes and metamyelocytes) > 1% indicates that a LEFT SHIFT is Present. MCH (RBC) [Entitic mass] 29.3 pg 27.0-32.0 [facility] Work Phone: Nucleated RBC/100 WBC (Bld) [Ratio] 0 % 0-5 [facility] Work Phone: MCHC Auto (RBC) [Mass/Vol]on 03-03-2022 MCHC (RBC) [Mass/Vol] 32.9 g/dL 32-36 [facility] Work Phone: No Panel Informationon 03-03 Estimated GFR (MDRD) Amer 76 mL/min >60 [facility] Work Phone: Comment on above: GFR Calc Estimated GFR (MDRD) Non-Af Amer 62 mL/min >60 [facility] Work Phone: Comment on above: Non- GFR Calc Vitamin D 25-Hydroxy 44.5 ng/mL [facility] Work Phone: Comment on above: Vitamin D 25(OH) Sta tus Range Deficiency <20 ng/mL (50nmol/L) Insufficiency 20 - 30 ng/mL (50 - 75 nmol/L) Sufficiency 30 - 100 ng/mL (75 - 250 nmol/L) Toxicity >100 ng/mL (>250 nmol/L) Platelets bldon 03-03-2022 Platelets (Bld) [#/Vol] 221 10*3/uL 150-450 [facility] Work Phone: Serum or plasma albumin bethel urement (mass/volume)on 03-03-2022 Albumin [Mass/Vol] 4.1 g/dL 3.2-5.[address] [facility] Work Phone: Serum or plasma albumin/glob ulin mass ratioon 03-03-2022 Albumin/Globulin [Mass ratio] 1.2 {ratio} 0.9-2.4 [facility] Work Phone: Serum or plasma calcium bethel urement (mass/volume)on 03-03-2022 Calcium [Mass/Vol] 9.3 mg/dL 8.5-10.[address] [facility] Work Phone: Serum or plasma cholesterol in HDL measurement (mass/volume)on 03-03-2022 Cholesterol in HDL [Mass/Vol] 46 mg/dL [facility] Work Phone: Comment on above: The drugs N-Acetylcy steine and Metamizole may falsely depress this assay. Reference Range HDL <40 mg/dL Low HDL Cholesterol HDL >or= 60 mg/dL High HDL Cholesterol Serum or plasma cholesterol in VLDL measurement (mass/volume)on 03-03-2022 Cholesterol in VLDL [Mass/Vol] 28 mg/dL 5-40 [facility] Work Phone: Serum or plasma creatinine m easurement (mass/volume)on 03-03-2022 Creatinine [Mass/Vol] 0.93 mg/dL 0.55-1.02 [facility] Work Phone: Comment on above: The validity of the calculated GFR & GFRAA in patients over 70 years has not been determined. Clinical correlation is essential. Serum or plasma low density lipoprotein (LDL) cholesterol measurement (mass/volume)on 03-03-2022 Cholesterol in LDL [Mass/Vol] 122 mg/dL 0-130 [facility] Work Phone: Serum or plasma urea nitroge n measurement (mass/volume)on 03-03-2022 Urea nitrogen [Mass/Vol] 22 mg/dL 7-18 [facility] Work Phone: Thin prep Papanicolaou smear with manual screeningon 03-03-2022 Thin prep Papanicolaou smear with manual screening 29 U/L 15-37 [facility] Work Phone: Thin prep Papanicolaou smear with manual screening 5 5-15 [facility] Work Phone: Whole blood hemoglobin A1c/t otal hemoglobin ratio (mass fraction)on 03-03-2022 HbA1c (Bld) [Mass fraction] 6.1 % 3.8-5.6 [facility] Work Phone: Comment on above: Normal < 5.7 % Predi abetic 5.7 - 6.4 % Diabetic >or= 6.5 % Please note range changes. XR KNEE GENERAL 4V AP BOTH/P A BOTH/LAT/MERC LEFTon 10-21-[address] [facility] Therapy Communicationon 12-06 Therapy Communication Message PEGGY HANSEN canceled today . Signatures Electronically signed by : Anna Hussein PTA; Dec 22 2019 10:56AM EST (Author) Normal [facility] PT Progress Noteon 0 PT Progress Note Therapy Diagnosis Assessed Stiffness of left ankle, not elsewhere classified (719.57) (M25.672) Insurance Insurance reviewed Visit number: 10 Authorization not required after evaluation 05/19 [employer] Evaluating Physical Therapist: CHAYO LemonT, OCS . Medicare certification period: [id number], to [id number]. Subjective Patient reports: Patient reports that she is using the cane at home and using walker for community ambulation. States that she sometimes feels like her knee is going to give out on her. Notes that she is not wearing her boot at all anymore d/t L knee discomfort. Current pain level 0/10 and 1/10 in L knee. Precautions: weight bearing restrictions: TTWB LLE. Fall Risk: low WBAT on LLE in boot until 3, then out of boot, progress to cane. Treatment Time in clinic started at 11:00 am Time in clinic ended at 11:40 am Total time in clinic is 40 minutes. Total timed code time is 38 minutes. Therapeutic exercise (81935): timed minutes 30, units 2 . Nu Step L2 5 mins focus on L knee Ext Long Sitting PF/ DF Lt green band 2x10 each L (DC to HEP) Long Sitting Ever/Inver Lt Blue 2x10 each L (DC to HEP) Long Sitting gastroc /soleus Stretch with Strap- 3 reps each (DC to HEP) Toes crunches w/towel push and pull 2 x 10 ea dir (DC to HEP) Purple Flex band DF/PF 2 x 10 5 hold (DC to HEP) Purple Flex Band Ever/Inver 2 x 10 5 hold (DC to HEP) Ankle ABCs 1 cycle (DC to HEP) Standing wt shifts in shoes - side to side 2 x 10 - diagonals 2 x 10 - fwd 2 x 10 (N) Sit to stand to EOB slow control 2 x 10 (P reps) Standing gastroc and soleus stretch 2x30 ea Toe taps on 6 on step 6 2 x 10 (N) Step ups Green step 2 x 10 (N) Long sit 3 way HS stretch 30 x 3 (N) Seated HR/TR 15x (d/c to HEP) Supine SLR with QS 2x10 (A to HEP) Side SLRs 2x10 (A to HEP) L knee flexion stretch w/ towel 2x20 sec (HEP) Long Sitting Hams Stretch 3 way 3x each direction (d/c HEP). Manual Therapy (99622):. STM to L gastrocs soleus peroneals Achilles 15' (X) ankle PROM Ev/Inv and gentle stretching 3' (X). Gait Training (27745): timed minutes 8, units 1 . 60 ft x 2 working on correct technique with standard cane 8' (N) RW utilizing decreased UE use 40' x 2, in running shoes Attempted single point cane in clinic W/shoe on 40' x 2 but pt's knee buckled. Provided today: education . Handout given with new exercises of sit to stand and calf stretches. Assessment Added standing toe taps this date to continue focusing on balance and strength progression. Needs use B Min A to help with stability. Completed step ups onto green step to continue with progression. Patient has tendency to keep L knee in flexed position during stance phase of gait and static standing. Added [address] hamstring stretch this date d/t tight hamstrings. Interdisciplinary Team Communication: Physical Therapy . Response to treatment: no change in pain, improved gait and improved knowledge and understanding of condition. Patient was able to complete today's treatment with ease. Plan Planned interventions include: edema control, education/instructi on, gait training, manual therapy, self care/home management, therapeutic activities and therapeutic exercises. Goals: Goals set and discussed today. In 8 weeks, PEGGY HANSEN will achieve the following goals: 1. Patient will be independent with the HEP - Indep with current HEP , by week 4, goal met Activity Limitation: 2. Patient will demonstrate normal gait pattern with a cane or 1 crutch to enable her to use the upstairs bathroom and bedroom, by week 6, goal met Gait/Locomotion: 3. Patient able to walk with normal pattern without an assistive device - still requires RW with shoes, progressing to cane as tolerated, now WBAT, by week 8, goal partially met , 3. Patient will demonstrate ability to go up and down flight of stairs with railing in alternating pattern, without pain or difficulty - Not Met , by week 8 4. Patient will have a score of >= 80% on the Lower Extremity Scale to demonstrate return to functional activities - n/t TBA, by week 8 Frequency and duration: 2 time(s) a week, for 2-3 weeks . 2x/wk x 2-3 weeks, then d/c to HEP. Potential to achieve rehab goals is excellent Will continue with progression to more weight bearing PRE's as able. Progress with POC, as tolerated. Signatures Electronically signed by : Anna Hussein [employer]OR [employer]; Dec 12 2019 12:56PM EST (Author) Electronically signed by : Ayaka Mehta, PT; Dec 17 2019 1:27PM EST Normal [facility] PT Progress Note Therapy Diagnosis Assessed Stiffness of left ankle, not elsewhere classified (719.57) (M25.672) Insurance Insurance reviewed Visit number: 11 Authorization not required after evaluation 05/19 [employer] Evaluating Physical Therapist: Janet Hernandez DPT, OCS . Medicare certification period: [id number], to [id number]. Subjective Patient reports: Patient reports that she has been strictly using the cane at home. Notes that she has been compliant with HEP and would like to schedule more visits. Notes that her knee has felt much better since using the cane as well. Precautions: weight bearing restrictions: TTWB LLE. Fall Risk: low WBAT on LLE in boot until , then out of boot, progress to cane. Treatment Time in clinic started at 1:45 pm Time in clinic ended at 2:30 pm Total time in clinic is 45 minutes. Total timed code time is 44 minutes. Therapeutic exercise (27502): timed minutes 44, units 3 . Nu Step L2 5 mins focus on L knee Ext Standing wt shifts in shoes - side to side 2 x 10 - diagonals 2 x 10 - fwd 2 x 10 (N) Sit to stand to EOB slow control 2 x 10 standing heel raises 2 x 10 (N) Standing gastroc and soleus stretch 2x30 ea (P to slantboard) Toe taps on 6 2 x 10 Step ups Green step 2 x [address] HS stretch 30 x 3 Hurdles- small fwd/lat x [address] e[address] dir[address] (N) SLS 3 x 30 L only (N) Terminal knee extension 2 x 10 Blue (N) Seated HR/TR 15x (d/c to HEP) Supine SLR with QS 2x10 (A to HEP) Side SLRs 2x10 (A to HEP) L knee flexion stretch w/ towel 2x20 sec (HEP) Long Sitting Hams Stretch 3 way 3x each direction (d/c HEP). Manual Therapy (85080):. STM to L gastrocs soleus peroneals Achilles 15' (X) ankle PROM Ev/Inv and gentle stretching 3' (X). Gait Training (55952):. 60 ft x 2 working on correct technique with standard cane 8' (N) RW utilizing decreased UE use 40' x 2, in running shoes Attempted single point cane in clinic W/shoe on 40' x 2 but pt's knee buckled. Provided today: education . TKE, SLS, standing heel raises. Assessment Progressed exercises this date to focus on ankle stability and LE strength progression. Difficulty with SLS this date with need to hang on with B UE's for balance. Continued need for cues to have patient extend knee in stance phase d/t continued knee flexion. Improved technique after cues given. Interdisciplinary Team Communication: Physical Therapy . Response to treatment: no change in pain, improved gait and improved knowledge and understanding of condition. Patient was able to complete today's treatment with some difficulty. Plan Planned interventions include: edema control, education/instructi on, gait training, manual therapy, self care/home management, therapeutic activities and therapeutic exercises. Goals: Goals set and discussed today. In 8 weeks, PEGGY KICK will achieve the following goals: 1. Patient will be independent with the HEP - Indep with current HEP , by week 4, goal met Activity Limitation: 2. Patient will demonstrate normal gait pattern with a cane or 1 crutch to enable her to use the upstairs bathroom and bedroom, by week 6, goal met Gait/Locomotion: 3. Patient able to walk with normal pattern without an assistive device - still requires RW with shoes, progressing to cane as tolerated, now WBAT, by week 8, goal partially met , 3. Patient will demonstrate ability to go up and down flight of stairs with railing in alternating pattern, without pain or difficulty - Not Met , by week 8 4. Patient will have a score of >= 80% on the Lower Extremity Scale to demonstrate return to functional activities - n/t TBA, by week 8 Frequency and duration: 2 time(s) a week, for 2-3 weeks . 2x/wk x 2-3 weeks, then d/c to HEP. Potential to achieve rehab goals is excellent Will continue with progression to more weight bearing PRE's as able. Progress with POC, as tolerated. Signatures Electronically signed by : Anna Hussein PTA; Dec 15 2019 4:15PM EST (Author) Normal [facility] PT Progress Noteon 0 PT Progress Note Therapy Diagnosis Assessed Stiffness of left ankle, not elsewhere classified (719.57) (M25.672) Insurance Insurance reviewed Visit number: 8 Authorization not required after evaluation 05/19 [employer] Evaluating Physical Therapist: Janet Hernandez DPT, OCS . Medicare certification period: [id number], to [id number]. Subjective Precautions: weight bearing restrictions: TTWB LLE. Fall Risk: low WBAT on LLE in boot until , then out of boot, progress to cane. Objective Ortho Gait: amb with boot on LLE, WBAT with RW, L knee flexed during gait Observation: healing lateral L leg incision with 1 dry scab at mid incision; mild swelling at ankle Ankle AROM/PROM: RLE: WNL LLE: DF: 10/15 degrees PF: 50/55 degrees Inv: 20/25, degrees Ev: 10/15 degrees Ankle strength: 5/5 all directions Palpation: not tender LEFS Outcome score: n/t today, 57/80 = 35% at initial visit . Treatment Therapeutic exercise (55520): timed minutes 30, units 2 . Nu Step L2 5 mins (P resistsnce) focus on L knee Ext Long Sitting PF/ DF Lt green band 2x10 each L (DC to HEP) Long Sitting Ever/Inver Lt Blue 2x10 each L (DC to HEP) Long Sitting gastroc /soleus Stretch with Strap- 3 reps each (DC to HEP) Toes crunches w/towel push and pull 2 x 10 ea dir (DC to HEP) Purple Flex band DF/PF 2 x 10 5 hold (DC to HEP) Purple Flex Band Ever/Inver 2 x 10 5 hold (DC to HEP) Ankle ABCs 1 cycle (DC to HEP) Standing wt shifts in shoes (P) - side to side 2 x 10 - diagonals 2 x 10 - fwd 2 x 10 (N) Sit to stand to EOB slow control x 10 (N) Standing gastroc and soleus stretch 2x30 ea (N) Seated HR/TR 15x (d/c to HEP) Supine SLR with QS 2x10 (A to HEP) Side SLRs 2x10 (A to HEP) L knee flexion stretch w/ towel 2x20 sec (HEP) Long Sitting Hams Stretch 3 way 3x each direction (d/c HEP). Manual Therapy (84760):. STM to L gastrocs soleus peroneals Achilles 15' (X) ankle PROM Ev/Inv and gentle stretching 3' (X). Gait Training (46626): timed minutes 10', units 1 . with verbal and visual instruction given RW utilizing decreased UE use 40' x 2, in running shoes Attempted single point cane in clinic W/shoe on 40' x 2 but pt's knee buckled. Provided today: education . Handout given with new exercises of sit to stand and calf stretches. Assessment Peggy is making nice progress with her left ankle strength, ROM, and gait. She is able to walk in running shoes with her RW, but still demonstrates L knee flexion throughout gait. She will practice this at home, and progress to her cane at home when the RW feels easy and she trusts her L knee. Interdisciplinary Team Communication: Physical Therapy . Response to treatment: improved gait and improved knowledge and understanding of condition. Patient was able to complete today's treatment with ease. Plan Planned interventions include: edema control, education/instructi on, gait training, manual therapy, self care/home management, therapeutic activities and therapeutic exercises. Goals: Goals set and discussed today. In 8 weeks, PEGGY HANSEN will achieve the following goals: 1. Patient will be independent with the HEP - Indep with current HEP , by week 4, goal met Activity Limitation: 2. Patient will demonstrate normal gait pattern with a cane or 1 crutch to enable her to use the upstairs bathroom and bedroom, by week 6, goal met Gait/Locomotion: 3. Patient able to walk with normal pattern without an assistive device - still requires RW with shoes, progressing to cane as tolerated, now WBAT, by week 8, goal partially met , 3. Patient will demonstrate ability to go up and down flight of stairs with railing in alternating pattern, without pain or difficulty - Not Met , by week 8 4. Patient will have a score of >= 80% on the Lower Extremity Scale to demonstrate return to functional activities - n/t TBA, by week 8 Frequency and duration: 2 time(s) a week, for 2-3 weeks . 2x/wk x 2-3 weeks, then d/c to HEP. Potential to achieve rehab goals is excellent Progress with POC, as tolerated. Signatures Electronically signed by : Janet Hernandez, PT; Dec 09 2019 12:55PM EST (Author) Normal [facility] Therapy Re-eval Noteon 12-08 Therapy Re-eval Note Therapy Diagnosis Assessed 1. Stiffness of left ankle, not elsewhere classified (719.57) (M25.672) Insurance Insurance reviewed Visit number: 8 Authorization not required after evaluation 05/19 [employer] Medicare Evaluating Physical Therapist: CHAYO LemonT, OCS . Medicare certification period: [id number], to [id number]. Subjective Precautions: weight bearing restrictions: TTWB LLE. Fall Risk: low WBAT on LLE in boot until , then out of boot, progress to cane. Objective Ortho Gait: amb with boot on LLE, WBAT with RW, L knee flexed during gait Observation: healing lateral L leg incision with 1 dry scab at mid incision; mild swelling at ankle Ankle AROM/PROM: RLE: WNL LLE: DF: 10/15 degrees PF: 50/55 degrees Inv: 20/25, degrees Ev: 10/15 degrees Ankle strength: 5/5 all directions Palpation: not tender LEFS Outcome score: n/t today, 57/80 = 35% at initial visit . Assessment Peggy is making nice progress with her left ankle strength, ROM, and gait. She is able to walk in running shoes with her RW, but still demonstrates L knee flexion throughout gait. She will practice this at home, and progress to her cane at home when the RW feels easy and she trusts her L knee. Interdisciplinary Team Communication: Physical Therapy . Response to treatment: improved gait and improved knowledge and understanding of condition. Patient was able to complete today's treatment with ease. Treatment Therapeutic exercise (86141): timed minutes 30, units 2 . Nu Step L2 5 mins (P resistsnce) focus on L knee Ext Long Sitting PF/ DF Lt green band 2x10 each L (DC to HEP) Long Sitting Ever/Inver Lt Blue 2x10 each L (DC to HEP) Long Sitting gastroc /soleus Stretch with Strap- 3 reps each (DC to HEP) Toes crunches w/towel push and pull 2 x [address] ea dir (DC to HEP) Purple Flex band DF/PF 2 x 10 5 hold (DC to HEP) Purple Flex Band Ever/Inver 2 x 10 5 hold (DC to HEP) Ankle ABCs 1 cycle (DC to HEP) Standing wt shifts in shoes (P) - side to side 2 x 10 - diagonals 2 x 10 - fwd 2 x 10 (N) Sit to stand to EOB slow control x 10 (N) Standing gastroc and soleus stretch 2x30 ea (N) Seated HR/TR 15x (d/c to HEP) Supine SLR with QS 2x10 (A to HEP) Side SLRs 2x10 (A to HEP) L knee flexion stretch w/ towel 2x20 sec (HEP) Long Sitting Hams Stretch 3 way 3x each direction (d/c HEP). Manual Therapy (58291):. STM to L gastrocs soleus peroneals Achilles 15' (X) ankle PROM Ev/Inv and gentle stretching 3' (X). Gait Training (00413): timed minutes 10', units 1 . with verbal and visual instruction given RW utilizing decreased UE use 40' x 2, in running shoes Attempted single point cane in clinic W/shoe on 40' x 2 but pt's knee buckled. Provided today: education . Handout given with new exercises of sit to stand and calf stretches. Plan Planned interventions include: edema control, education/instructi on, gait training, manual therapy, self care/home management, therapeutic activities and therapeutic exercises. Goals: Goals set and discussed today. In 8 weeks, PEGGY HANSEN will achieve the following goals: 1. Patient will be independent with the HEP - Indep with current HEP , by week 4, goal met Activity Limitation: 2. Patient will demonstrate normal gait pattern with a cane or 1 crutch to enable her to use the upstairs bathroom and bedroom, by week 6, goal met Gait/Locomotion: 3. Patient able to walk with normal pattern without an assistive device - still requires RW with shoes, progressing to cane as tolerated, now WBAT, by week 8, goal partially met , 3. Patient will demonstrate ability to go up and down flight of stairs with railing in alternating pattern, without pain or difficulty - Not Met , by week 8 4. Patient will have a score of >= 80% on the Lower Extremity Scale to demonstrate return to functional activities - n/t TBA, by week 8 Frequency and duration: 2 time(s) a week, for 2-3 weeks . 2x/wk x 2-3 weeks, then d/c to HEP. Potential to achieve rehab goals is excellent Progress with POC, as tolerated. Signatures Electronically signed by : Janet Hernandez PT; Dec 09 2019 12:55PM EST (Author) Normal [facility] PT Progress Noteon 0 PT Progress Note Therapy Diagnosis Assessed Stiffness of left ankle, not elsewhere classified (719.57) (M25.672) Insurance Insurance reviewed Visit number: 7 Authorization not required after evaluation 02/16 [employer] Medicare Evaluating Physical Therapist: Janet Hernandez DPT, OCS . Medicare certification period: [id number], to [id number]. Subjective Patient reports: Patient reports that she phones MD to get updated script for WBing status. States that she was able to take a shower. Denies any reports of pain in the ankle or foot this date, just the knee. States that she is going to try a different pair of shoes to see if that will help take the pressure off of her knee d/t the unequal height of tennis shoe and boot. Precautions: weight bearing restrictions: TTWB LLE. Fall Risk: low TTWB on LLE x 4 weeks (until 11/30/19; patient has MD follow up on 11/27/19 and they will update). Treatment Time in clinic started at 10:57 am Time in clinic ended at 11:43 am Total time in clinic is 46 minutes. Total timed code time is 45 minutes. Therapeutic exercise (50302): timed minutes 35, units 2 . Nu Step L2 5 mins (P resistsnce) Long Sitting PF/ DF Lt green band 2x10 each L Long Sitting Ever/Inver Lt Blue 2x10 each L Long Sitting gastroc /soleus Stretch with Strap- 3 reps each Toes crunches w/towel push and pull 2 x 10 ea dir Purple Flex band DF/PF 2 x 10 5 hold Purple Flex Band Ever/Inver 2 x 10 5 hold Ankle ABCs 1 cycle Standing wt shifts in Boot (N) - side to side 2 x 10 - diagonals 2 x 10 - fwd 2 x 10 (N) Standing sinks (A) Seated HR/TR 15x (d/c to HEP) Supine SLR with QS 2x10 (A to HEP) Side SLRs 2x10 (A to HEP) L knee flexion stretch w/ towel 2x20 sec (HEP) Long Sitting Hams Stretch 3 way 3x each direction (d/c HEP). Manual Therapy (06867):. STM to L gastrocs soleus peroneals Achilles 15' (X) ankle PROM Ev/Inv and gentle stretching 3' (X). Gait Training (53908): timed minutes 10', units 1 . In depth verbal and visual instruction given 5' Fww utilizing decreased UE use 40' x 2 Quad cane in clinic W/boot on 40' x 2 . Provided today: education . Handout given with side to side, fwd/bwd, and diagonal weight shifts in the boot. Assessment Phoned [facility] to see if new script was sent to the clinic. They received order by fax and verbally read it to [employer] [facility] over the phone stating patient is to be in boot for 2 weeks and then wean out of boot to cane. Had patient try to put approx 15% weight through her arms with use of the walker today. Just enough to steady herself with slight pressure through the arms. Instructed patient to try to obtain a cane for progression to the cane for progression of WBing status. Also had patient utilize the quad cane in clinic to practice gait with cane. Patient had decreased pain in the L knee with use of the cane vs when using the walker. Instructed patient to keep boot on at home with weight shifts that were added to HEP this date. Response to treatment: no change in pain and improved knowledge and understanding of condition. Patient was able to complete today's treatment with some difficulty. Plan Planned interventions include: edema control, education/instructi on, gait training, manual therapy, self care/home management, therapeutic activities and therapeutic exercises. Goals: Goals set and discussed today. In 8 weeks, PEGGY HANSEN will achieve the following goals: 1. Patient will be independent with the HEP - Indep with current HEP , by week 4, goal met Activity Limitation: 2. Patient will demonstrate normal gait pattern with a cane or 1 crutch to enable her to use the upstairs bathroom and bedroom, by week 6 Gait/Locomotion: 3. Patient able to walk with normal pattern without an assistive device, by week 8 , 3. Patient will demonstrate ability to go up and down flight of stairs with railing in alternating pattern, without pain or difficulty , by week 8 4. Patient will have a score of >= 80% on the Lower Extremity Scale to demonstrate return to functional activities, by week 8 Frequency and duration: 2 time(s) a week, for 4 weeks . 2x/wk x 4 weeks, then recheck, and continue 1-2x/wk x 4 weeks. Potential to achieve rehab goals is excellent Continue with Wbing progression now that order from MD has been obtained. Progress with POC, as tolerated. Signatures Electronically signed by : Anna Hussein [employer] [employer] [facility]; Dec 03 2019 12:35PM EST (Author) Electronically signed by : Janet Hernandez, PT; Dec 08 2019 10:25AM EST Normal [facility] PT Progress Noteon 0 PT Progress Note Therapy Diagnosis Assessed Stiffness of left ankle, not elsewhere classified (719.57) (M25.672) Insurance Insurance reviewed Visit number: 6 Authorization not required after evaluation 02/16 [employer] Medicare Evaluating Physical Therapist: Janet Hernandez DPT, OCS . Medicare certification period: [id number], to [id number]. Subjective Patient reports: Patient reports that she saw MD at end of last week and can start putting weight through her foot. States that she was told to wear the boot for 2 more weeks. States that MD informed her that the ankle is fully healed. Does not have new script with change in WBing status, so will phone office to get one faxed to the clinic. States that she is still having pain in the L knee. States that the swelling has been down overall unless she has been up awhile. Precautions: weight bearing restrictions: TTWB LLE. Fall Risk: low TTWB on LLE x 4 weeks (until 11/30/19; patient has MD follow up on 11/27/19 and they will update). Treatment Time in clinic started at 10:18 am Time in clinic ended at 10:59 am Total time in clinic is 41 minutes. Total timed code time is 38 minutes. Therapeutic exercise (02956): timed minutes 38, units 3 . Nu Step L1 5 mins Long Sitting PF/ DF Lt green band 2x10 each L Long Sitting Ever/Inver Lt Blue 2x10 each L Long Sitting gastroc /soleus Stretch with Strap- 3 reps each Toes crunches w/towel push and pull 2 x 10 ea dir (P) Purple Flex band DF/PF 2 x 10 5 hold Purple Flex Band Ever/Inver 2 x 10 5 hold Ankle ABCs 1 cycle Standing wt shifts in Boot (N) - side to side 2 x 10 - diagonals 2 x 10 Gait w/ decreased wt through UE's 15'x2 (N) Seated HR/TR 15x (d/c to HEP) Supine SLR with QS 2x10 (A to HEP) Side SLRs 2x10 (A to HEP) L knee flexion stretch w/ towel 2x20 sec (HEP) Long Sitting Hams Stretch 3 way 3x each direction (d/c HEP). Manual Therapy (20313):. STM to L gastrocs soleus peroneals Achilles 15' (X) ankle PROM Ev/Inv and gentle stretching 3' (X). Assessment Consulted with PT regarding weight bearing status and she instructed [facility] [employer] [facility] to start Wbing in boot this date but to get the script from MD. Patient arrived applying approx 25% Wbing on the L LE but was still putting a lot of force through her UE onto the walker. Improved ankle mobility with IV/EV with use of the purple flexband. Difficulty continues with towel crunches with toes. Had patient trial weight shifting in the boot side/side and diagonals all while wearing CAM boot. Held STW this date will add next date if PRN. Interdisciplinary Team Communication: Physical Therapy . Response to treatment: improved knowledge and understanding of condition. Plan Planned interventions include: edema control, education/instructi on, gait training, manual therapy, self care/home management, therapeutic activities and therapeutic exercises. Goals: Goals set and discussed today. In 8 weeks, PEGGY HANSEN will achieve the following goals: 1. Patient will be independent with the HEP - Indep with current HEP , by week 4, goal met Activity Limitation: 2. Patient will demonstrate normal gait pattern with a cane or 1 crutch to enable her to use the upstairs bathroom and bedroom, by week 6 Gait/Locomotion: 3. Patient able to walk with normal pattern without an assistive device, by week 8 , 3. Patient will demonstrate ability to go up and down flight of stairs with railing in alternating pattern, without pain or difficulty , by week 8 4. Patient will have a score of >= 80% on the Lower Extremity Scale to demonstrate return to functional activities, by week 8 Frequency and duration: 2 time(s) a week, for 4 weeks . 2x/wk x 4 weeks, then recheck, and continue 1-2x/wk x 4 weeks. Potential to achieve rehab goals is excellent Will continue to progress Wbing when orders are received from MD. Progress with POC, as tolerated. Signatures Electronically signed by : Anna Hussein PTA; Dec 01 2019 12:36PM EST (Author) Electronically signed by : Ayaka Mehta PT; Dec 03 2019 3:29PM EST Normal [facility] PT Progress Noteon 0 PT Progress Note Therapy Diagnosis Assessed Stiffness of left ankle, not elsewhere classified (719.57) (M25.672) Insurance Insurance reviewed Visit number: 5 Authorization not required after evaluation 02/16 [employer] Medicare Evaluating Physical Therapist: Janet Hernandez DPT, OCS . Medicare certification period: [id number], to [id number]. Subjective Patient reports: Patient reports that the scabs are starting to come off and she no longer has any steristrips left on the incision. Reports that she returns for F/U tomorrow with MD. Notes that she is having more swelling in the ankle as the day progresses. Precautions: weight bearing restrictions: TTWB LLE. Fall Risk: low TTWB on LLE x 4 weeks (until 11/30/19; patient has MD follow up on 11/27/19 and they will update). Treatment Time in clinic started at 11:02 am Time in clinic ended at 11:50 am Total time in clinic is 48 minutes. Total timed code time is 45 minutes. Therapeutic exercise (69181): timed minutes 27, units 2 . Nu Step L1 5 mins Long Sitting PF/ DF Lt green band 2x10 each L Long Sitting Ever/Inver Lt Blue 2x10 each L Long Sitting gastroc /soleus Stretch with Strap- 3 reps each Toes crunches w/towel push and pull x 10 ea dir (N) Long Sitting Hams Stretch 3 way 3x each direction (d/c HEP) Purple Flex band DF/PF 2 x 10 5 hold Purple Flex Band Ever/Inver 2 x 10 5 hold Ankle ABCs 1 cycle Seated HR/TR 15x (d/c to HEP) Supine SLR with QS 2x10 (A to HEP) Side SLRs 2x10 (A to HEP) L knee flexion stretch w/ towel 2x20 sec (A to HEP). Manual Therapy (46354): timed minutes 18, units 1 . STM to L gastrocs soleus peroneals Achilles 15' ankle PROM Ev/Inv and gentle stretching 3'. Assessment Mild swelling along medial and lateral ankle this date but there is still definition along the malleoli. Observed a stitch along mid incision and pointed it out to patient to make sure that MD sees it at F/U. Has 2 areas of thick eschar that measures approx 1/2in. along mid incision and near where stitch is located. Added towel scrunces this date d/t tightness with active toe movement in preparation for when patient is able to ambulate. Interdisciplinary Team Communication: Physical Therapy . Response to treatment: improved knowledge and understanding of condition. Plan Planned interventions include: edema control, education/instructi on, gait training, manual therapy, self care/home management, therapeutic activities and therapeutic exercises. Goals: Goals set and discussed today. In 8 weeks, PEGGY HANSEN will achieve the following goals: 1. Patient will be independent with the HEP - Indep with current HEP , by week 4, goal met Activity Limitation: 2. Patient will demonstrate normal gait pattern with a cane or 1 crutch to enable her to use the upstairs bathroom and bedroom, by week 6 Gait/Locomotion: 3. Patient able to walk with normal pattern without an assistive device, by week 8 , 3. Patient will demonstrate ability to go up and down flight of stairs with railing in alternating pattern, without pain or difficulty , by week 8 4. Patient will have a score of >= 80% on the Lower Extremity Scale to demonstrate return to functional activities, by week 8 Frequency and duration: 2 time(s) a week, for 4 weeks . 2x/wk x 4 weeks, then recheck, and continue 1-2x/wk x 4 weeks. Potential to achieve rehab goals is excellent Progress with POC, as tolerated. Signatures Electronically signed by : Anna Hussein [employer] [employer] [facility]; Nov 26 2019 12:25PM EST (Author) Electronically signed by : Ayaka Mehta, PT; Nov 26 2019 3:19PM EST Normal [facility] PT Progress Noteon 0 PT Progress Note Therapy Diagnosis Assessed Stiffness of left ankle, not elsewhere classified (719.57) (M25.672) Insurance Insurance Visit number: 4 Authorization not required after evaluation 12/17 [employer] Medicare. Medicare certification period: [id number], to [id number]. Subjective Patient reports: Patient reports that current pain is 0/10. Notes that she had aching after HEP. Notes that it is puffy. States that she has been compliant with HEP progression. Precautions: weight bearing restrictions: TTWB LLE. Fall Risk: low TTWB on LLE x 4 weeks (until 11/30/19; patient has MD follow up on 11/27/19 and they will update). Treatment Time in clinic started at 2:30 pm Time in clinic ended at 3:15 pm Total time in clinic is 44 minutes. Total timed code time is 41 minutes. Therapeutic exercise (31577): timed minutes 25, units 2 . Nu Step L1 5 mins (N) Long Sitting PF/ DF Lt green band 2x10 each L Long Sitting Ever/Inver Lt Blue 2x10 each L Long Sitting gastroc /soleus Stretch with Strap- 3 reps each Long Sitting Hams Stretch 3 way 3x each direction (X) Purple Flex band DF/PF 2 x 10 5 hold Purple Flex Band Ever/Inver 2 x 10 5 hold Ankle ABCs 1 cycle Seated HR/TR 15x . Manual Therapy (90492): timed minutes 16, units 1 . IASTM/STM to L gastrocs soleus peroneals Achilles HG9 brush frame J hook HG7 fan Bevel up 10 degrees . Assessment Tenderness along dorsum of foot and personeals. Completed STW to decrease swelling in the ankle and foot. Arrived utilizing proper Wbing status with CAM boot and walker. Verbal cues to hold stretches longer with flexband stretches for improved technique. Plan Planned interventions include: edema control, education/instructi on, gait training, manual therapy, self care/home management, therapeutic activities and therapeutic exercises. Goals: Goals set and discussed today. In 8 weeks, PEGGY HANSEN will achieve the following goals: 1. Patient will be independent with the HEP , by week 4 Activity Limitation: 2. Patient will demonstrate normal gait pattern with a cane or 1 crutch to enable her to use the upstairs bathroom and bedroom, by week 6 Gait/Locomotion: 3. Patient able to walk with normal pattern without an assistive device, by week 8 , 3. Patient will demonstrate ability to go up and down flight of stairs with railing in alternating pattern, without pain or difficulty , by week 8 4. Patient will have a score of >= 80% on the Lower Extremity Scale to demonstrate return to functional activities, by week 8 Frequency and duration: 2 time(s) a week, for 4 weeks . 2x/wk x 4 weeks, then recheck, and continue 1-2x/wk x 4 weeks. Potential to achieve rehab goals is excellent Plan to continue with stretches and [place] exercises d/t TTWB status. Signatures Electronically signed by : Anna Hussein [employer] [employer]; Nov 21 2019 3:48PM EST (Author) Electronically signed by : Ayaka Mehta PT; Nov 24 2019 12:58PM EST Normal [facility] PT Progress Note Therapy Diagnosis Assessed Stiffness of left ankle, not elsewhere classified (719.57) (M25.672) Insurance Insurance reviewed Visit number: 5 Authorization not required after evaluation 02/16 [employer] Medicare Evaluating Physical Therapist: Janet Hernandez DPT, OCS . Medicare certification period: [id number], to [id number]. Subjective Precautions: weight bearing restrictions: TTWB LLE. Fall Risk: low TTWB on LLE x 4 weeks (until 11/30/19; patient has MD follow up on 11/27/19 and they will update). Treatment Time in clinic started at 1002 Time in clinic ended at 1045 Total time in clinic is 43 minutes. Therapeutic exercise (23436): timed minutes 25, units 2 . Nu Step L1 5 mins Long Sitting PF/ DF Lt green band 2x10 each L Long Sitting Ever/Inver Lt Blue 2x10 each L Long Sitting gastroc /soleus Stretch with Strap- 3 reps each Long Sitting Hams Stretch 3 way 3x each direction (d/c HEP) Purple Flex band DF/PF 2 x 10 5 hold Purple Flex Band Ever/Inver 2 x 10 5 hold Ankle ABCs 1 cycle Seated HR/TR 15x (d/c to HEP) Supine SLR with QS 2x10 (A to HEP) Side SLRs 2x10 (A to HEP) L knee flexion stretch w/ towel 2x20 sec (A to HEP). Manual Therapy (14686): timed minutes 18, units 1 . STM to L gastrocs soleus peroneals Achilles ankle PROM Ev/Inv and gentle stretching. Assessment Peggy is making good progress with her left ankle ROM, and is compliant with TTWB status. She has ongoing L knee pain and stiffness related to OA that was present before her fibula fx. She had difficulty walking down hills and getting in/out of the car. She will benefit from strengthening of the core and lower extremity to ensure maximal improvement with her left ankle recovery. Interdisciplinary Team Communication: Physical Therapy . Response to treatment: improved knowledge and understanding of condition. Plan Planned interventions include: edema control, education/instructi on, gait training, manual therapy, self care/home management, therapeutic activities and therapeutic exercises. Goals: Goals set and discussed today. In 8 weeks, PEGGY HANSEN will achieve the following goals: 1. Patient will be independent with the HEP - Indep with current HEP , by week 4, goal met Activity Limitation: 2. Patient will demonstrate normal gait pattern with a cane or 1 crutch to enable her to use the upstairs bathroom and bedroom, by week 6 Gait/Locomotion: 3. Patient able to walk with normal pattern without an assistive device, by week 8 , 3. Patient will demonstrate ability to go up and down flight of stairs with railing in alternating pattern, without pain or difficulty , by week 8 4. Patient will have a score of >= 80% on the Lower Extremity Scale to demonstrate return to functional activities, by week 8 Frequency and duration: 2 time(s) a week, for 4 weeks . 2x/wk x 4 weeks, then recheck, and continue 1-2x/wk x 4 weeks. Potential to achieve rehab goals is excellent Progress with POC, as tolerated. Signatures Electronically signed by : Janet Hernandez, PT; Nov 24 2019 12:37PM EST (Author) Normal groSolar PT Initial Evaluationon 11-08 PT Initial Evaluation Reason For Visit Initial Evaluation . s/p Left fibula fracture on 10/17/19. Referred by: Dr. Vivian Woods Subjective Current Episode of Functional Impairment and/or Pain Date of onset: Mechanism of Injury: fall . Peggy reported that she fell on the hill outside of her house on October 08, and sustained a fracture. She has crutches, and a RW borrowed from a friend that is wobbly. She is TTWB on LLE x 4 weeks. Pain level: 2/10 today, usually 0/10, but she did not elevate her leg as much yesterday. House set-up: 2-story home, currently living on 1st floor. Has 2 step entry from porch with 1 railing. Has started to prep light meals, but had been sitting in wheelchair mostly. Patient goals: shop, drive, do [employer] . Medical Screening: No signs of domestic/child or elder abuse . Fall risk Initial Fall Risk Screening: PEGGY has fallen in the last 6 months. Her fall resulted in the following injury: Left fibula fracture. PEGGY has a fear of falling. She does not need assistance with sitting, standing or walking. Does not need assistance walking in her home. She does not need assistance in an unfamiliar setting. The patient is not using an assistive device. Medical screening assessed. Functional Assessment and Medical Management Functional limitations: driving , walking , participation in leisure activities , participation in home management and stairs . Work Status: retired. Current Status: improving. Patient Awareness: Patient is aware of her diagnosis and prognosis. Patient stated goal(s) for treatment include: relieving pain and walking with a normal gait . 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 Living Environment: multi-story home . small bathroom upstairs where she can only use a cane, so living on 1st floor for now. Social Support: lives with spouse. Neri. Exercise: She exercises . She is doing Yonas chi in chair for now. She used to do it 1x/wk in a class, but plans to do it daily when she is able. Baseline Function - Requires Assistance: Her drives her to appointments now, she needs stand by assist on stairs and when walking with crutches. Precautions: weight bearing restrictions: TTWB LLE. Fall Risk: low TTWB on LLE x 4 weeks (until 11/30/19; patient has MD follow up on 11/27/19 and they will update). Lymphedema History relieving pain Patient stated goal(s) for treatment include: increasing mobility, walking with a normal gait, resuming athletics/activitie s and returning to regular activity levels . To take [employer] class and do it daily at home; drive; do household tasks; travel to visit family. Functional limitations include standing, walking, participation in leisure activities, participation in home management, stairs and participation in sports. Objective Ortho Her Neri was present today. Gait: arrived amb NWB LLE with axillary crutches, unsteady and slow gait. They brought a RW also. She has a knee scooter at home. Observation: healing lateral L leg incision with dry scabbing present and steri-strips. No drainage, no warmth, no odor. Mild edema at distal leg and ankle Ankle AROM/PROM: RLE: WNL LLE: DF: 5/8 degrees PF: 45/50 deg Inv: 20/25, decreased motor control Ev: 5/10, decreased motor control Palpation: not tender at medial or lateral ankle ligaments LEFS Outcome score: 57/80 = 35% . Assessment Peggy presents 1 month following a fall where she sustained a left fibula fracture. She had an ORIF on 10/17/[address] Woods, and is TTWB x 4 weeks. She presents with impairments in her ankle ROM, strength, ambulation, transfers, stairs and overall mobility. She will benefit from skilled PT intervention to address these findings and to reach her goals. Interdisciplinary Team Communication: . Clinical Presentation: Evolving with changing characteristics. Level of Complexity: moderate Problem List: activity limitations, balance, coordination, decreased functional level, decreased knowledge of assisted device use, decreased knowledge of HEP, edema, fall risk, gait/locomotion, motor function/control/to ne, pain, participation restrictions, range of motion/joint mobility, strength and transfers. Therapy Diagnosis Assessed Stiffness of left ankle, not elsewhere classified (719.57) (M25.672) Treatment Time in clinic started at 0945 Time in clinic ended at 1045 Total time in clinic is 60 minutes. Total timed code time is 55 minutes. Treatment Performed Today:. Evaluation performed, HEP instructions. Gait training with RW and how to ascend/descend a step with the RW, stepping up backwards onto RLE, and forwards down step onto LLE, TTWB LLE. She demonstrated good, safe technique and will have her spouse provide SBA for this. Response to treatment: no change in pain and improved knowledge and understanding of condition. Patient was able to complete today's treatment with some difficulty. Evaluation Code: 62083 PT Eval: Mod Complexity, 40 min(s). Timed: 48747 Therapeutic Exercises, 15 min(s), 1 unit(s). Resources provided today: home program (scanned) and education Education Provided: home exercise program and home safety. Information communicated to patient and spouse . Response to education: demonstrated understanding. Preferred learning method: performance. Exercises Long Sitting Ankle Plantar Flexion with Resistance- 10 reps- 2 sets- 2x daily- 7x weekly Long Sitting Ankle Eversion with Resistance- 10 reps- 2 sets- 1x daily- 7x weekly Long Sitting Ankle Inversion with Anchored Resistance- 10 reps- 2 sets- 2x daily- 7x weekly Long Sitting Calf Stretch with Strap- 3 reps- 1 sets- 30 seconds hold- 2x daily- 7x weekly . Plan of Care Planned interventions include: edema control, education/instructi on, gait training, manual therapy, self care/home management, therapeutic activities and therapeutic exercises. Goals: Goals set and discussed today. In 8 weeks, PEGGY HANSEN will achieve the following goals: 1. Patient will be independent with the HEP , by week 4 Activity Limitation: 2. Patient will demonstrate normal gait pattern with a cane or 1 crutch to enable her to use the upstairs bathroom and bedroom, by week 6 Gait/Locomotion: 3. Patient able to walk with normal pattern without an assistive device, by week 8 , 3. Patient will demonstrate ability to go up and down flight of stairs with railing in alternating pattern, without pain or difficulty , by week 8 4. Patient will have a score of >= 80% on the Lower Extremity Scale to demonstrate return to functional activities, by week 8 Frequency and duration: 2 time(s) a week, for 4 weeks . 2x/wk x 4 weeks, then recheck, and continue 1-2x/wk x 4 weeks. Potential to achieve rehab goals is excellent Plan of care was developed with input and agreement by the patient. Insurance Insurance reviewed Visit number: 1 Authorization not required after evaluation 10/19 [facility] Medicare. Medicare certification period: , to [id number]. Contacts for Physician Signature First attempt date: . Referring Provider Signature: I am in agreement with the above plan of care. Referring Provider Signature , Date/Time __ Signatures Electronically signed by : Janet Hernandez, PT; Nov 10 2019 2:52PM EST (Author) Normal groSolar PT Progress Noteon 0 PT Progress Note Therapy Diagnosis Assessed Orthopedic aftercare (V54.9) (Z47.89) Stiffness of left ankle, not elsewhere classified (719.57) (M25.672) Insurance Insurance reviewed Visit number: 3 Authorization not required after evaluation 12/17 [facility] Medicare. Medicare certification period: [id number], to [id number]. Subjective Patient reports: Reports R knee pain 3/10 and ankle is 0/10. States at initial fall they did X-ray her knee and negative for Fx. Still TTWB until her surgeon consult on the Nov and hopefully new orders then. Precautions: weight bearing restrictions: TTWB LLE. Fall Risk: low TTWB on LLE x 4 weeks (until 11/30/19; patient has MD follow up on 11/27/19 and they will update). Treatment Time in clinic started at 10:46 am Time in clinic ended at 11:30 am Total time in clinic is 44 minutes. Total timed code time is 41 minutes. Therapeutic exercise (81436): timed minutes 25, units 2 . Nu Step L1 5 mins (N) Long Sitting PF/ DF Lt green band 2x10 each L Long Sitting Ever/Inver Lt Blue 2x10 each L Long Sitting gastroc /soleus Stretch with Strap- 3 reps each Long Sitting Hams Stretch 3 way 3x each direction (X) Purple Flex band DF/PF 15x Purple Flex Band Ever/Inver 15x Ankle ABCs 1 cycle Seated HR/TR 15x (N) . Manual Therapy (33457): timed minutes 16, units 1 . IASTM/STM to L gastrocs soleus peroneals Achilles HG9 brush frame J hook HG7 fan Bevel up 10 degrees . Assessment Noted poor eccentric control of invertors/ evertors during T band exercises. Tactile and verbal cues to correct form and slow speed. She was able to progress [place] activities without c/o. Plan Planned interventions include: edema control, education/instructi on, gait training, manual therapy, self care/home management, therapeutic activities and therapeutic exercises. Goals: Goals set and discussed today. In 8 weeks, PEGGY HANSEN will achieve the following goals: 1. Patient will be independent with the HEP , by week 4 Activity Limitation: 2. Patient will demonstrate normal gait pattern with a cane or 1 crutch to enable her to use the upstairs bathroom and bedroom, by week 6 Gait/Locomotion: 3. Patient able to walk with normal pattern without an assistive device, by week 8 , 3. Patient will demonstrate ability to go up and down flight of stairs with railing in alternating pattern, without pain or difficulty , by week 8 4. Patient will have a score of >= 80% on the Lower Extremity Scale to demonstrate return to functional activities, by week 8 Frequency and duration: 2 time(s) a week, for 4 weeks . 2x/wk x 4 weeks, then recheck, and continue 1-2x/wk x 4 weeks. Potential to achieve rehab goals is excellent Cont. with strengthening and ROM to allow improved L ankle mobility to prepare for pre gait activities. Signatures Electronically signed by : Anabelle Capellan [employer]; Nov 17 2019 12:12PM EST (Author) Electronically signed by : Janet Hernandez PT; Nov 17 2019 12:31PM EST Normal Touchworks PT Progress Noteon 0 PT Progress Note Therapy Diagnosis Assessed Orthopedic aftercare (V54.9) (Z47.89) Stiffness of left ankle, not elsewhere classified (719.57) (M25.672) Insurance Insurance reviewed Visit number: 2 Authorization not required after evaluation 11/19 [employer] Medicare. Medicare certification period: [id number], to [id number]. Subjective Patient reports: States her L ankle is very stiff and feels heavy. Mild pain that she rates 2/10. Reports she willl consult her surgeon on the to check status of L ankle healing. Until then TTWB. Precautions: weight bearing restrictions: TTWB LLE. Fall Risk: low TTWB on LLE x 4 weeks (until 11/30/19; patient has MD follow up on 11/27/19 and they will update). Treatment Time in clinic started at 9:15 am Time in clinic ended at 10:01 am Total time in clinic is 46 minutes. Total timed code time is 43 minutes. Therapeutic exercise (05296): timed minutes 28, units 2 . Long Sitting PF/ DF Lt green band 2x10 each L Long Sitting Ever/Inver Lt Blue 2x10 each L Long Sitting Calf Stretch with Strap- 3 reps- Long Sitting Hams Stretch 3 way 3x each direction (N) Purple Flex band DF/PF 15x (N) Purple Flex Band Ever/Inver 15x (N) Ankle ABCs 1 cycle (N) . Manual Therapy (35116): timed minutes 15, units 1 . IASTM/STM to L gastrocs soleus peroneals Achilles HG9 brush frame J hook HG7 fan Bevel up 10 degrees . Assessment IASTM/STM completed to reduce soft tissue restrictions at L peroneals, gastrocs, soleus , and Achilles. She was able to complete all ROM and LE PREs without c/o. Instructed in self stretching and massage for improved self management of Sxs. Plan Planned interventions include: edema control, education/instructi on, gait training, manual therapy, self care/home management, therapeutic activities and therapeutic exercises. Goals: Goals set and discussed today. In 8 weeks, PEGGY HANSEN will achieve the following goals: 1. Patient will be independent with the HEP , by week 4 Activity Limitation: 2. Patient will demonstrate normal gait pattern with a cane or 1 crutch to enable her to use the upstairs bathroom and bedroom, by week 6 Gait/Locomotion: 3. Patient able to walk with normal pattern without an assistive device, by week 8 , 3. Patient will demonstrate ability to go up and down flight of stairs with railing in alternating pattern, without pain or difficulty , by week 8 4. Patient will have a score of >= 80% on the Lower Extremity Scale to demonstrate return to functional activities, by week 8 Frequency and duration: 2 time(s) a week, for 4 weeks . 2x/wk x 4 weeks, then recheck, and continue 1-2x/wk x 4 weeks. Potential to achieve rehab goals is excellent Cont. with strengthening and ROM to allow improved L ankle AROM to prepare for pre-gait activities. Signatures Electronically signed by : Anabelle Capellan PTA; Nov 13 2019 12:44PM EST (Author) Normal [employer] Vital Signs Date Time Vital Sign Value Performing Clinician Tristani daniele 01-12-2025 12:55-0400 Body height 161.[address] Uriel Thorpe MD Work Phone: [facility] 01-12-2025 12:55-0400 Body mass index (BMI) [Ratio] 29.5 kg/m2 Dr. Uriel Thorpe MD Work Phone: [facility] 01-12-2025 12:55-0400 Body temperature 98.2 [degF] Dr. Uriel Thorpe MD Work Phone: [facility] 01-12-2025 12:55-0400 Body weight 76.[address] Uriel Thorpe MD Work Phone: [facility] 01-12-2025 12:55-0400 Diastolic blood pressure 68 mm[Hg] Dr. Uriel Thorpe MD Work Phone: [facility] 01-12-2025 12:55-0400 Heart rate 72 /min Dr. Uriel Thorpe MD Work Phone: [facility] 01-12-2025 12:55-0400 Respiratory rate 18 /min Dr. Uriel Thorpe MD Work Phone: [facility] 01-12-2025 12:55-0400 SaO2% (BldA) [Mass fraction] 98 % Dr. Uriel Thorpe MD Work Phone: [facility] 01-12-2025 12:55-0400 Systolic blood pressure 122 mm[Hg] Dr. Uriel Thorpe MD Work Phone: [facility] 11-05-2023 08:26-0500 Body height 161.[address] Uriel Thorpe Work Phone: [facility] 11-05-2023 08:26-0500 Body mass index (BMI) [Ratio] 29.5 kg/m2 Dr. Uriel Thorpe Work Phone: [facility] 11-05-2023 08:26-0500 Body temperature 97.6 [degF] Dr. Uriel Thorpe Work Phone: [facility] 11-05-2023 08:26-0500 Body weight 76.[address] Uriel Thorpe Work Phone: [facility] 11-05-2023 08:26-0500 Diastolic blood pressure 72 mm[Hg] Dr. Uriel Thorpe Work Phone: [facility] 11-05-2023 08:26-0500 Heart rate 83 /min Dr. Uriel Thorpe Work Phone: [facility] 11-05-2023 08:26-0500 Respiratory rate 16 /min Dr. Uriel Thorpe Work Phone: [facility] 11-05-2023 08:26-0500 SaO2% (BldA) [Mass fraction] 99 % Dr. Uriel Thorpe Work Phone: [facility] 11-05-2023 08:26-0500 Systolic blood pressure 122 mm[Hg] Dr. Uriel Thorpe Work Phone: [facility] 07-04-2023 10:31-0400 Body height 161.[address] Uriel Thorpe Work Phone: [facility] 07-04-2023 10:31-0400 Body mass index (BMI) [Ratio] 29 kg/m2 Dr. Uriel Thorpe Work Phone: [facility] 07-04-2023 10:31-0400 Body temperature 96.7 [degF] Dr. Uriel Thorpe Work Phone: [facility] 07-04-2023 10:31-0400 Body weight 75.[address] Uriel Thorpe Work Phone: [facility] 07-04-2023 10:31-0400 Diastolic blood pressure 66 mm[Hg] Dr. Uriel Thorpe Work Phone: [facility] 07-04-2023 10:31-0400 Heart rate 80 /min Dr. Uriel Thorpe Work Phone: [facility] 07-04-2023 10:31-0400 Respiratory rate 18 /min Dr. Uriel Thorpe Work Phone: [facility] 07-04-2023 10:31-0400 SaO2% (BldA) [Mass fraction] 99 % Dr. Uriel Thorpe Work Phone: [facility] 07-04-2023 10:31-0400 Systolic blood pressure 114 mm[Hg] Dr. Uriel Thorpe Work Phone: [facility] 03-06-2023 13:24-0400 Body height 161.[address] Claribel Rapp Work Phone: [facility] 02-08-2023 14:48-0400 Body height 161.[address] Claribel Rapp Work Phone: [facility] 02-08-2023 14:48-0400 Body mass index (BMI) [Ratio] 29.6 kg/m2 Dr. Claribel Rapp Work Phone: [facility] 02-08-2023 14:48-0400 Body temperature 99.4 [degF] Dr. Claribel Rapp Work Phone: [facility] 02-08-2023 14:48-0400 Body weight 77.[address] Claribel Rapp Work Phone: [facility] 02-08-2023 14:48-0400 Diastolic blood pressure 62 mm[Hg] Dr. Claribel Rapp Work Phone: [facility] 02-08-2023 14:48-0400 Heart rate 83 /min Dr. Claribel Rapp Work Phone: [facility] 02-08-2023 14:48-0400 Respiratory rate 16 /min Dr. Claribel Rapp Work Phone: [facility] 02-08-2023 14:48-0400 SaO2% (BldA) [Mass fraction] 96 % Dr. Claribel Rapp Work Phone: [facility] 02-08-2023 14:48-0400 Systolic blood pressure 120 mm[Hg] Dr. Claribel Rapp Work Phone: [facility] 11-01-2022 19:59-0500 Diastolic blood pressure 85 mm[Hg] [facility] 11-01-2022 19:59-0500 Heart rate 80 /min [facility] 11-01-2022 19:59-0500 Respiratory rate 15 /min [facility] 11-01-2022 19:59-0500 SaO2% (BldA) [Mass fraction] 97 % [facility] 11-01-2022 19:59-0500 Systolic blood pressure 136 mm[Hg] [facility] 11-01-2022 16:16-0500 Body height 161.29 cm [facility] 11-01-2022 16:16-0500 Body mass index (BMI) [Ratio] 28.5 kg/m2 [facility] 11-01-2022 16:16-0500 Body temperature 97.1 [degF] [facility] 11-01-2022 16:16-0500 Body weight 74.38 kg [facility] Hospital Encounters Encounter Date Encounter Type Care Provider Facility Start: 08-28-2025 ambulatory Uriel Thorpe [facility] ty:[facility] Start: 04-15-2025 End: 04-15-[address] Uriel Thorpe MD Work Phone: -Outpatient Bone Densitometry Start: 04-15-2025 End: 04-15-[address] 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 Uriel Thorpe MD Work Phone: [facility] Work Phone: Start: 01-12-2025 End: 01-12-[address] Uriel Thorpe MD -Laboratory, [place] Start: 01-12-2025 End: 01-12-[address] Uriel Thorpe MD -[facility] Work Phone: Start: 01-12-2025 End: 01-12-[address] Uriel Thorpe MD [facility] Start: 01-12-2025 End: 01-12-2025 ambulatory [facility] Facility:[facility] Start: 01-12-2025 End: 01-12-2025 ambulatory [facility] Facility:[facility] Start: 08-14-2024 End: 08-14-2024 ambulatory [facility] Facility:[facility] Start: 11-05-2023 End: 11-05-[address] Uriel Thorpe Work Phone: [facility] Work Phone: Start: 11-05-2023 End: 11-05-[address] Uriel Thorpe Work Phone: [facility] Work Phone: Start: 07-04-2023 End: 07-04-[address] Uriel Thorpe Work Phone: [facility] Work Phone: Start: 07-04-2023 End: 07-04-[address] Uriel Thorpe Work Phone: [facility] Work Phone: Start: 03-06-2023 End: 03-06-[address] Claribel Rapp Work Phone: [facility] Work Phone: Start: 03-06-2023 End: 03-06-[address] Claribel Rapp Work Phone: [facility]-Outpatient Bone Densitometry Start: 02-08-[address] Claribel Rapp Work Phone: [facility] Start: 02-08-2023 End: 02-08-[address] Claribel Rapp Work Phone: [facility] Work Phone: Start: 02-08-2023 End: 02-08-2023 Encounter for general adult medical examination without abnormal findings Dr. Claribel Rapp Work Phone: [facility] Start: 02-08-2023 End: 02-08-[address] Claribel Rapp Work Phone: [facility] Start: 11-01-2022 End: 11-01-2022 Emergency department patient visit [facility]-Emergency Department Start: 04-20-2022 Telephone encounter Gabe holcomb MD Work Phone: Orthopaedics Comment on above: Returning Patient's Call Start: 03-03-2022 End: 03-03-2022 Patient encounter procedure [facility] Start: 10-21-2021 End: 10-21-2021 Subsequent hospital visit by physician Suzie Ortho [facility] Work Phone: Radiology Comment on above: Left knee pain, unsp ecified chronicity [M25.562] Procedures Date Procedure Procedure Detail Performing Clinician Start: 04-15-2025 Dual energy X-ray absorptiometry Dr. Uriel Thorpe MD Work Phone: Start: 01-12-2025 Total iron binding c apacity measurement Dr. Uriel Thorpe MD Work Phone: Start: 01-12-2025 Vitamin D, 25-hydrox y measurement Dr. Uriel Thorpe MD Work Phone: Comment on above: Vitamin D StatusDefi ciency: <20 ng/mL (50nmol/L)Insufficiency: 20-30 ng/mL (50-75 nmol/L)Sufficiency: 30-100 ng/mL (75-250 nmol/L)Toxicity: >100 ng/mL (>250 nmol/L) Start: 03-06-2023 Dual energy X-ray absorptiometry Dr. Claribel Rapp Work Phone: Start: 03-06-2023 Screening mammography Dee Rapp Work Phone: Start: 11-01-2022 CT of pelvis without contrast Start: 11-01-2022 Plain x-ray of pelvi s and lower extremity Start: 10-21-2021 Radiologic exam knee complete 4/more views Yaya Wagner PA-C Work Phone: Plan of Treatment Date Care Activity Detail Author Start: 03-17-2026 End: 03-17-2026 Patient encounter procedure 03/17/2026 9:00 AM EDT Office Visit [facility] [address] [place] [address] Kimmy Garzon II, OD [address] [place] [address] Eye exam/Glaucoma suspect/[facility] Comment on above: Eye exam/Glaucoma marinelli spect/[facility] Start: 01-12-2025 Evaluation of diagno stic study results [facility] Start: 10-08-2024 Advance Directive Discussion Advance Directive Discussion [facility] Start: 06-08-2024 Covid-19 Vaccine ( season) Covid-19 Vaccine ( season) [facility] Start: 06-08-2023 Covid-19 Vaccine ( season) Covid-19 Vaccine ( season) [facility] Start: 06-08-2023 Influenza vaccination Influenza Vacc ine (#1) [facility] Start: 10-08-2022 Advance Directive Discussion Advance Directive Discussion [facility] Start: 10-08-2022 Depression Assessment Depression Ass essment [facility] Start: 06-08-2022 Influenza vaccination INFLUENZA (#1) [facility] Start: 12-02-2021 COVID-19 VACCINE (4 - Booster for Pfizer series) COVID-19 VACCINE (4 - Booster for Pfizer series) [facility] Start: 10-08-2021 ADVANCE DIRECTIVE DISCUSSION ADVANCE DIRECTIVE DISCUSSION [facility] Start: 10-08-2020 Urine microalbumin profile DTaP,Tdap,Td Vaccine (2 - Td or Tdap) [facility] Start: 01-09-2020 RSV Vaccine (1 - 1-d ose 75+ series) RSV Vaccine (1 - 1-dose 75+ series) [facility] Start: 11-21-2018 Pneumococcal Vaccine : 50+ (2 of 2 - PPSV23) Pneumococcal Vaccine: 50+ (2 of 2 - PPSV23) [facility] Start: 2010 BONE DENSITY BONE DENSITY [facility] Start: 2010 Bone Density Screening Bone Density Screening [facility] Start: 2010 Pneumococcal Vaccine : 65+ (1 - PCV) Pneumococcal Vaccine: 65+ (1 - PCV) [facility] Start: 2010 PNEUMOCOCCAL: 65+ (1 - PCV) PNEUMOCOCCAL: 65+ (1 - PCV) [facility] Start: 2010 Screening for osteoporosis Bone Density Screening [facility] Start: 2005 RSV Vaccine (1 - 1-d ose 60+ series) RSV Vaccine (1 - 1-dose 60+ series) [facility] Start: 1995 SHINGRIX VACCINE (1 of 2) SHINGRIX VACCINE (1 of 2) [facility] Start: 1990 DIABETES SCREEN DIABETES SCREEN [facility] Start: 1990 Diabetes Screening Diabetes Screenin g [facility] Start: 01-09-1964 Urine microalbumin profile [facility] Start: 1963 Anxiety Screening Anxiety Screening [facility] Start: 1963 Depression Screening Depression Scre ening [facility] Start: 1963 HEPATITIS C SCREENING HEPATITIS C SC [facility] Start: 1957 Adult depression screening assessment DEPRESSION SCREENING [facility] DXA Bone [Mass/Area] Bone density [facility] DXA Bone [Mass/Area] Bone density [facility] MG Breast - bilatera l Screening [facility] Patient Education ED Pelvic Fracture [facility] Work Phone: Patient referral [facility] Work Phone: [facility] Immunizations Immunization Date Immunization Notes Care Provider Fa jordana 08-07-2022 influenza virus vaccine, unspecified formulation Xr Rej Work Phone: [facility] 08-01-2021 Covid Moderna Bivale nt Booster; Translations: [Covid Moderna Bivalent Booster] Dr. Claribel Rapp Work Phone: [facility] 07-19-[address] Claribel Rapp Work Phone: [facility] 12-02-2020 Covid 50mcg/0.5ml (Moderna) Dr. Claribel Rapp Work Phone: [facility] 11-05-2020 Covid (Moderna) Dr. Claribel luna Work Phone: [facility] 06-18-2020 influenza, injectabl e, quadrivalent, preservative free Dr. Uriel Thorpe Work Phone: [facility] 06-18-2020 influenza, seasonal, injectable Dr. Claribel Rapp Work Phone: [facility] 11-21-2017 pneumococcal conjuga te vaccine, [address] Claribel Rapp Work Phone: [facility] 07-08-2017 influenza, injectabl e, quadrivalent, preservative free Dr. Uriel Thorpe Work Phone: [facility] 07-08-2017 influenza, seasonal, injectable Dr. Claribel Rapp Work Phone: [facility] 10-08-2010 tetanus toxoid, redu diane diphtheria toxoid, and acellular pertussis vaccine, adsorbed Dr. Claribel Rapp Work Phone: [facility] 10-08-[address] Claribel Rapp Work Phone: [facility] 10-08-2005 TD(adult) unspecifie d formulation Dr. Claribel Rapp Work Phone: [facility] Payers Date Payer Category Payer Self-pay [id number] 2021 Medicare [employer]ET[employer] MEDICARE A ETNA MEDICARE PPO [id number] 2021-Present [phone] [address] [place] [address] PPO [id number] 2021 Medicare AET[employer] MEDICARE A ETNA MEDICARE PPO [id number] 2021-Present [phone] [address] [place] [address] PPO [id number] 2021 Medicare (Managed Care) AETNA [place] DICARE [id number] 2013 Private Health Insurance 101 [id number] Unknown [id number] Unknown [id number] Unknown [id number] Unknown [id number] Unknown [id number] Social History Date Type Detail Facility Start: 12-03-2019 End: 11-05-2023 Tobacco smoking status MNIS Unknown if ever smoked [facility] Start: 10-08-2019 None [facility] Start: 10-08-2019 Spouse/ Signif icant Other [facility] Start: 10-16-2019 Non-smoker [facility] Start: 1945 Sex Assigned At Female W [facility] Start: 08-26-2014 End: 11-05-2023 Tobacco smoking status NHIS Never smoked tobacco [facility] Work Phone: Start: 10-21-2021 End: 03-11-2025 Alcohol intake Current drinker of alcohol (finding) [facility] Start: 10-21-2021 End: 03-11-[address] [facility] Start: 07-27-2020 History SDOH Alcohol Comment occasional [facility] Start: 1945 Sex Assigned At Not on file [facility] Start: 08-26-2014 Tobacco use and exposure Smokeless tobacco non-user [facility] Start: 10-21-2021 End: 03-11-2025 Tobacco use panel [facility] Start: 09-21-2021 End: 10-21-2021 Exposure to SARS-CoV-2 (event) Not sure [facility] Start: 01-15-2025 Sex Female (finding) [facility] National Score (1-100), lower number is lower risk [address] [facility] Medical Equipment Procedure Code Equipment Code Equipment Origin al Text Equipment Identifier Dates ORIF, ankle 1/3 tubular lcp plate w collar FDA Start: 10-17-2019 ORIF, ankle 3.5 mm locking screws FDA Start: 10-17-2019 ORIF, ankle 3.5MM CORTEX SCREW FDA Start : 10-17-2019 ORIF, ankle 3.5mm Cortex scr ews, self-rach FDA Start: 10-17-2019 ORIF, ankle 3.5mm cortex scr ew, self tappi FDA Start: 10-17-2019 ORIF, ankle 3.5mm cortex scr ew, self tappi FDA Start: 10-17-2019 ORIF, ankle 1/3 tubular lcp plate w collar FDA Start: 10-17-2019 ORIF, ankle 3.5 mm locking screws FDA Start: 10-17-2019 ORIF, ankle 3.5MM CORTEX SCREW FDA Start : 10-17-2019 ORIF, ankle 3.5mm Cortex scr ews, self-rach FDA Start: 10-17-2019 ORIF, ankle 3.5mm cortex scr ew, self tappi FDA Start: 10-17-2019 ORIF, ankle 3.5mm cortex scr ew, self tappi FDA Start: 10-17-2019 ORIF, ankle 1/3 tubular lcp plate w collar FDA Start: 10-17-2019 ORIF, ankle 3.5 mm locking screws FDA Start: 10-17-2019 ORIF, ankle 3.5MM CORTEX SCREW FDA Start : 10-17-2019 ORIF, ankle 3.5mm Cortex scr ews, self-rach FDA Start: 10-17-2019 ORIF, ankle 3.5mm cortex scr ew, self tappi FDA Start: 10-17-2019 ORIF, ankle 3.5mm cortex scr ew, self tappi FDA Start: 10-17-2019 ORIF, ankle 1/3 tubular lcp plate w collar FDA Start: 10-17-2019 ORIF, ankle 3.5 mm locking screws FDA Start: 10-17-2019 ORIF, ankle 3.5MM CORTEX SCREW FDA Start : 10-17-2019 ORIF, ankle 3.5mm Cortex scr ews, self-rach FDA Start: 10-17-2019 ORIF, ankle 3.5mm cortex scr ew, self tappi FDA Start: 10-17-2019 ORIF, ankle 3.5mm cortex scr ew, self tappi FDA Start: 10-17-2019 ORIF, ankle 1/3 tubular lcp plate w collar FDA Start: 10-17-2019 ORIF, ankle 3.5 mm locking screws FDA Start: 10-17-2019 ORIF, ankle 3.5MM CORTEX SCREW FDA Start : 10-17-2019 ORIF, ankle 3.5mm Cortex scr ews, self-rach FDA Start: 10-17-2019 ORIF, ankle 3.5mm cortex scr ew, self tappi FDA Start: 10-17-2019 ORIF, ankle 3.5mm cortex scr ew, self tappi FDA Start: 10-17-2019 ORIF, ankle 1/3 tubular lcp plate w collar FDA Start: 10-17-2019 ORIF, ankle 3.5 mm locking screws FDA Start: 10-17-2019 ORIF, ankle 3.5MM CORTEX SCREW FDA Start : 10-17-2019 ORIF, ankle 3.5mm Cortex scr ews, self-rach FDA Start: 10-17-2019 ORIF, ankle 3.5mm cortex scr ew, self tappi FDA Start: 10-17-2019 ORIF, ankle 3.5mm cortex scr ew, self tappi FDA Start: 10-17-2019 ORIF, ankle 1/3 tubular lcp plate w collar FDA Start: 10-17-2019 ORIF, ankle 3.5 mm locking screws FDA Start: 10-17-2019 ORIF, ankle 3.5MM CORTEX SCREW FDA Start : 10-17-2019 ORIF, ankle 3.5mm Cortex scr ews, self-rach FDA Start: 10-17-2019 ORIF, ankle 3.5mm cortex scr ew, self tappi FDA Start: 10-17-2019 ORIF, ankle 3.5mm cortex scr ew, self tappi FDA Start: 10-17-2019 ORIF, ankle 1/3 tubular lcp plate w collar FDA Start: 10-17-2019 ORIF, ankle 3.5 mm locking screws FDA Start: 10-17-2019 ORIF, ankle 3.5MM CORTEX SCREW FDA Start : 10-17-2019 ORIF, ankle 3.5mm Cortex scr ews, self-rach FDA Start: 10-17-2019 ORIF, ankle 3.5mm cortex scr ew, self tappi FDA Start: 10-17-2019 ORIF, ankle 3.5mm cortex scr ew, self tappi FDA Start: 10-17-2019 Clinical Notes 10-21-2021 to 03-11-2025 Patient InstructionsCoKimmy hoang II, OD - 03/11/2025 3:43 PM EDT Note Date & Type Note Facility 03-11-2025 Instructions Kimmy Garzon II, OD - 03/11/2025 3:44 PM EDT Assessment and Plan H25.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 Well tolerated at this time. Discussed possible future affect on daily activities to watch for. Monitor as instructed. 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 Stable Intraocular pressures and nerve appearance today. Monitor yearly. No treatment indicated at this time. Discussed need for continued close observation to minimize chance of future vision loss. 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 Update as desired. I have confirmed and edited as necessary the relevant HPI, ophthalmic history, ROS, and the neuro exam findings as obtained by others. I have seen and examined Peggy Hansen. I have discussed the case and the management of this patient's care with the Resident/Fellow, if applicable. I also have reviewed and agree with the assessment and plan as stated above and agree with all of its relevant components. documented in this encounter [facility] 03-11-2025 Note HNO ID: [id number] Author: KIMMY GARZON II, PREETHI Service: ? 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 Well tolerated at this time. Discussed possible future affect on daily activities to watch for. Monitor as instructed. 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 Stable Intraocular pressures and nerve appearance today. Monitor yearly. No treatment indicated at this time. Discussed need for continued close observation to minimize chance of future vision loss. 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 Update as desired. I have confirmed and edited as necessary the relevant HPI, ophthalmic history, ROS, and the neuro exam findings as obtained by others. I have seen and examined Peggy Hansen. I have discussed the case and the management of this patient's care with the Resident/Fellow, if applicable. I also have reviewed and agree with the assessment and plan as stated above and agree with all of its relevant components. [facility] 03-11-2025 History of Presen t illness Narrative Assessment and Plan H25.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 Well tolerated at this time. Discussed possible future affect on daily activities to watch for. Monitor as instructed. 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 Stable Intraocular pressures and nerve appearance today. Monitor yearly. No treatment indicated at this time. Discussed need for continued close observation to minimize chance of future vision loss. 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 Update as desired. I have confirmed and edited as necessary the relevant HPI, ophthalmic history, ROS, and the neuro exam findings as obtained by others. I have seen and examined Peggy Hansen. I have discussed the case and the management of this patient's care with the Resident/Fellow, if applicable. I also have reviewed and agree with the assessment and plan as stated above and agree with all of its relevant components. documented in this encounter [facility] 01-12-2025 Evaluation note Diagnosis Onset Date Resolution Health care maintenance acute A pril 2024 12:47pm Anemia chronic January 12, 12:47pm Borderline type 2 diabetes mellitus chronic January 12 12:47pm Hypertension chronic January 12, 2 025 12:47pm Osteopenia chronic January 12 12:47pm [facility] Work Phone: [phone]) 369-303007-14-2022 Miscellaneous Notes* Telephone Encounter - Lisseth Mcguire RN - 04/20/2022 11:26 AM EDT ORTHO CARE COORDINATION QUICK NOTE Patient has been identified by name and date of : Yes Spoke with patient today regarding her need to postpone her LTKA surgery scheduled for 05/12. Patientreports that she has a tooth abscess that needs to be addressed. She declined rescheduling surgery at this time as she reports her knee isnt painful and she may opt to hold off on surgery for anotheryear Advised patient that she can call the office when shes ready for surgery and it may include an OV to update documentation but we would double check dates when she calls to reschedule Patient appreciative of call. Lisseth Mcguire RN documented [facility] History of Present illness Narrative* Megan Bailey, RT(R) - 10/21/2021 10:15 AM EST Radiology Service Progress Note PATIENT NAME: Pegyg Hansen DATE OF SERVICE: October 21, 2021 TIME: 9:30 AM PATIENT IDENTITY VERIFICATION COMPLETED USING TWO (2) IDENTIFIERS: Name and Date of confirmedby patient verbally. FALL SCREENING: Has the patient had 2 falls in the last year or 1 fall with injury or currently using an Ambulatory Assistive Device (Walker, Cane, Wheelchair, Crutches, etc.)? No PATIENT GENDER DATA: Female. status: : No status: NO. PATIENT RELEVANT IMPLANT DATA REVIEWED: Not Applicable RADIOLOGY DEPARTMENT: General X-ray: Exam(s) Completed: Lower Extremity X- Ray(s): Knee, AP / Lat / Tunne / Merchant Left and Wt. Bearing PERIPHERAL IV DATA: Not applicable SIGNED BY: RT Marianela(R) October 21, 2021 9:30 AM documented in [facility]Eval[facility] noteNo assessment information availableWElyria Memorial Hospital Work Phone: Evaluation note* Diagnosis Onset Date Resolution Status Health care maintenance acut e Anemia chronic Borderline type 2 diabetes mellitus chronic Hypertension chronic Osteoarthritis [facility] Work Phone: Evaluation note* Diagnosis Onset Date Resolution Status Skin mole acute Borderline type 2 diabetes mellitus chronic Hypertension [facility] Work Phone: Evaluation note* Diagnosis Left knee pain, unspecified chronicity documented in this encounter [facility]* Diagnosis Onset Date Resolution Status Borderline type 2 diabetes mellitus chronic Hypertension chronic Osteoarthritis [facility] Work Phone: Evaluation note* Diagnosis Combined form of senile cataract of both eyes- Primary Glaucoma suspect of both eyes Preglaucoma, unspecified Regular astigmatism, left eye Hyperopia, left Presbyopia documented in this encounter [facility] (n[facility]ative)* Diagnostic Procedure Only (Routine) - Closed Specialty Diagnoses / Procedures Referred By Contac t Referred To Contact XR IMAGING Diagnoses Left knee pain, unspecified chronicity Procedures XR KNEE GENERAL 4V AP BOTH/PA BOTH/LAT/MERC LEFT KNEE AP-WGT/LAT/ISRAT Yaya Wagner PA-C [address] [place] [address] X[facility] [place] [address] Referral ID Status Reason Start Date Expiration Date V isits Requested Visits Authorized [id number] Closed Auto-Generate d Referral 10/17/2021 11/16/2022 1 1 [facility] for referral (narrative)No reason for referral information availableWElyria Memorial Hospital Work Phone: Summary Purpose Family History No Family History Records Found Relationship Condition Age at Onset Recorded Date/T yulisa mother Malignant neoplasm Unknown father Depression Unknown Diabetes mellitus Unknown Mental disorder Unknown sister Diabetes mellitus Unknown Disorder of thyroid Unknown brother Myocardial infarction 65 uncle Psychiatric care Unknown aunt Psychiatric care Unknown grandfather Cerebrovascular accident (CVA) 72 grandmother Disorder of thyroid Unknown Advance Directives No Advanced Directives Records Found Advance Directive Response Recorded Date/ Time Living Will Yes October 16 11:12am Power of Table Games Supervisor Yes October 16 11:12am Advance Directive Response Recorded Date/ Time Living Will No November 01 4:44pm Power of Table Games Supervisor No November 01, 2022 4:44pm Advance Directive Response Recorded Date/ Time Living Will No November 01 5:44pm Power of Table Games Supervisor No November 01, 2022 5:44pm Chief Complaint and Reason for Visit Chief Complaint Admit Date med fu January 12, 2025 12:4 7pm Post menopausal April 15, 2025 4:08p m Reason for Visit Admit Date Health care maintenance January 12, 2025 12:47pm Anemia January 12, 2025 12:4 7pm Borderline type 2 diabetes mellitus Apri l 2024 12:47pm Hypertension January 12, 2025 12:4 7pm Osteopenia January 12, 2025 12:4 7pm Chief Complaint hip injury Chief Complaint hip injury RRT. EST CARE - PPW SENT Reason for Visit Health care maintena nce Anemia Borderline type 2 diabetes mellitus Hypertension Osteoarthritis Chief Complaint RRT. EST CARE - PPW S ENT SCREENING/MENOPAUSE Reason for Visit Health care tanvira nce Anemia Borderline type 2 diabetes mellitus Hypertension Osteoarthritis Chief Complaint 4 M FU Reason for Visit Skin mole Borderline type 2 diabetes mellitus Hypertension Chief Complaint 4 M FU Reason for Visit Borderline type 2 di abetes mellitus Hypertension Osteoarthritis Chief Complaint Admit Date med fu January 12, 2025 12:4 7pm Additional Source Comments INFORMATION SOURCE (unrecogn ized section and content) DATE CREATED AUTHOR 12/22/2019 [employer] DATE CREATED AUTHOR AUTHOR'S ORGANIZ ATION 03/12/2025 [facility] DATE CREATED AUTHOR AUTHOR'S ORGANIZ ATION 07/19/2025 [facility] Goals (unrecognized section and content) Goals may be documented in a n alternate sectionGoals may be documented in an alternate sectionGoals may be documented in an alternate sectionGoals may be documented in an alternate sectionGoals may be documented in an alternate sectionGoals may be documented in an alternate sectionGoals may be documented in an alternate sectionGoals may be documented in an alternate section Source Comments (unrecognize d section and content) In the event this informatio n is protected by the Federal Confidentiality of Alcohol and Drug Abuse Patient Records regulations: The Federal rules restrict any use of the information to criminally investigate or prosecute any alcohol or drug abuse patient.[facility] CenterIn the event this information is protected by the Federal Confidentiality of Alcohol and Drug Abuse Patient Records regulations: The Federal rules restrict any use of the information to criminally investigate or prosecute any alcohol or drug abuse patient.[facility] CenterIn the event this information is protected by the Federal Confidentiality of Alcohol and Drug Abuse Patient Records regulations: The Federal rules restrict any use of the information to criminally investigate or prosecute any alcohol or drug abuse patient.[facility] Reason for Visit (unrecogniz ed section and content) Reason Comments Returning Patient's Call Reason Comments Radio Gen RMP Specialty Diagnoses / Procedures Referred By Contac t Referred To Contact XR IMAGING Diagnoses Left knee pain, unspecified chronicity Procedures XR KNEE GENERAL 4V AP BOTH/PA BOTH/LAT/MERC LEFT KNEE AP-WGT/LAT/MERCHANT Yaya Wagner PA-C [address] [place] [address] Xr Imaging [place] [address] Referral ID Status Reason Start Date Expiration Date V isits Requested Visits Authorized [id number] Closed Auto-Generate d Referral 10/17/2021 11/16/2022 1 1 Reason Comments Cataract Evaluation Care Teams (unrecognized sec tion and content) Mechanical Drafter Relationship Specialty Start Date End Date Phil Garcia MD [address] [place] [address] PCP - General Family Practice 07/09/18 Team Status: Active Member Role Status Dates Dr. Phil Garcia MD Family Provider Active Dr. Claribel Rapp MD Primary Care Provider Active Team Status: Inactive Member Role Status Dates Dr. Claribel Rapp MD Primary Care Provider Active Dr. Mian Alfaro DO Emergency Provider Active Team Status: Active Member Role Status Dates Dr. Phil Garcia MD Family Provider Active Dr. Uriel Thorpe MD Primary Care Provider Active Team Status: Inactive Member Role Status Dates Dr. Claribel Rapp MD Referring Provider Active Dr. Uriel Thorpe MD Primary Care Provider, Atten ding Provider Active Team Status: Inactive Member Role Status Dates Dr. Claribel Rapp MD Primary Care Provider Active Dr. Mian Alfaro DO Attending Provider, Emergency P salima Active Team Status: Inactive Member Role Status Dates Dr. Uriel Thorpe MD Primary Care P salima, Attending Provider, Referring Provider Active Mechanical Drafter Relationship Specialty Start Date End Date Phil Garcia MD [address] [facility] [place] [address] PCP - General Family Medicine 07/09/18 08/07/22 Team Status: Inactive Member Role Status Dates Dr. Uriel Thorpe MD Primary Care Provider Active Start: January 12, 2025 End: January 12, 2025 Dr. Uriel Thorpe MD Attending Provider Active Start: January 12, 2025 End: January 12, 2025 Dr. Uriel Thorpe MD Referring Provider Active Start: January 12, 2025 End: January 12, 2025 Mechanical Drafter Relationship Specialty Start Date End Date Uriel Thorpe MD [address] [facility] [address] [place], [place] [id number] PCP - General Internal Medicine 10/24/23 Team Status: Active Member Role/Relationship Status Dates Dr. Uriel Thorpe MD Primary Care Provider Active Team Status: Inactive Member Role/Relationship Status Dates Dr. Uriel Thorpe MD Primary Care Provider Active Start: January 12, 2025 End: January 12, 2025 Dr. Uriel Thorpe MD Attending Provider Active Start: January 12, 2025 End: January 12, 2025 Dr. Uriel Thorpe MD Referring Provider Active Start: January 12, 2025 End: January 12, 2025 Team Status: Inactive Member Role/Relationship Status Dates Dr. Uriel Thorpe MD Primary Care Provider Active Start: January 12, 2025 End: January 12, 2025 Dr. Uriel Thorpe MD Attending Provider Active Start: January 12, 2025 End: January 12, 2025 Dr. Uriel Thorpe MD Referring Provider Active Start: January 12, 2025 End: January 12, 2025 Team Status: Inactive Member Role/Relationship Status Dates Dr. Uriel Thorpe MD Primary Care Provider Active Start: April 15, 2025 End: April 15, 2025 Dr. Uriel Thorpe MD Attending Provider Active Start: April 15, 2025 End: April 15, 2025 Dr. Uriel Thorpe MD Referring Provider Active Start: April 15, 2025 End: April 15, 2025 FOR RECORDS PERTAINING TO PATIENTS WHO ARE [...] BE BASED ON THE PRIMARY CLINICAL RECORDS. [facility]. provides no warranty or guarantee of the accuracy or completeness of information in this document.
[2025-08-28 15:23] LABS: Hematocrit 36.3 % (37-47); Hemoglobin 12.0 g/dL (12.0-15.0); Immature Granulocytes Count 0.020 X10^3/uL (0.0-0.0); Mean Corp Hgb Conc 33.1 g/dL (32-36); Mean Corpuscular Volume 89.0 fL (81-99); Mean Platelet Vol. 10.8 fl (6.2-12.0); NRBC Flagged by Analyzer 0 % (0-5); Platelet Count 295 K/mm3 (150-450); RBC Distribution Width CV 13.1 % (11.6-14.6); RBC Distribution Width SD 42.7 fl (35.1-43.9); Red Blood Count 4.08 M/mm3 (4.2-5.4); White Blood Count 5.1 K/mm3 (4.4-11.0)
[2025-08-28 15:59] LABS: AST(SGOT) 21 U/L (<=31); Alanine Aminotransfer ALT/SGPT 20 U/L (<=34); Albumin, Serum 4.4 g/dL (3.4-4.8); Alkaline Phosphatase 82 U/L (35-104); Anion Gap 11 (5-15); BUN 18 mg/dL (4-19); BUN/Creat Ratio 23.1 RATIO (10-20); Calcium,Total 9.6 mg/dL (7.6-11.0); Carbon Dioxide 27.3 mmol/L (21.0-32.0); Chloride 100 mmol/L (98-108); Cholesterol 228 mg/dL (<=200); Globulin 3.2 g/dL (2.2-4.2); Glucose 165 mg/dL (70-99); Low Density Lipoprotein Calc. 146 mg/dL; Potassium 3.9 mmol/L (3.3-5.1); Triglycerides 218 mg/dL; Very Low Density Lipoprotein 44 mg/dL (5-40); cholesterol:hdl ratio screen 5.34
[2025-08-28 16:25] LABS: CRP 4.54 mg/L (0.0-3.0)
== END | disposition home or self-care (01) ==
LOC: MTLAB 13:24
PROVIDERS: PCP Internal Medicine; Referring Provider Internal Medicine; Visit Provider Internal Medicine
DX: I10 Essential (primary) hypertension (principal); R73.03 Prediabetes
CPT/HCPCS: 36415; 80053; 80061; 83036; 85025; 85652; 86140